=== PATIENT | female | born 1970 | race Caucasian/White ===

== ENCOUNTER 2016-10-14 14:37 | Inpatient (IN) | payer OTHER, MEDICARE, MEDICAID ==
[~2016-10-14] VITALS: Ht 170.2 cm; Wt 87.9 kg
[~2016-10-14 14:37] MED LIST: /DULO30CA; /DULO30CA OR; /ESOM40CA; /ESOM40CA OR; /ESOM40CA PO; /PROM25SU; ACET500C OR; AMBI10TA; AMBI10TA OR; AMOX500C OR; AMRIX; AMRIX PO; ARTHROTEC PO; ASCO25TA PO; ATEN25TA; ATEN25TA OR; BABY81CH; BLACK COHASH; CALC600T7 PO; CALCCHW12 OR; CYCL10TA PO; ESTR1TAB PO; ESTR625TA PO; EXCETAB OR; EXCETAB80 PO; FISHCAP5 PO; FLECTOR1.3; FLECTOR1.3 EXT; FLEXERIL; FLEXERIL OR; FLEXERIL PO; IBUP80TA PO; IMIT6INJ IJ; LIDO5DIS; LISI-542 PO; LOPERAMIDE PO; MELOPOW; MOBIC; MULTCAP PO; MULTIVIT; MULTIVIT OR; MVI PO; NEUR100C; NEUR100C PO; NEXI40CA PO; NORT25CA2 OR; OMEP20TA7 OR; PERC5TAB8; PERC5TAB8 OR; PREM0.45 PO; PROC25SU2 PO; PROP40TA OR; RIZA10TA4 PO; TIZA4TAB OR; TRAZADONE PO; TRIA37.5 PO; VOLT1GEL PO; ZANA4CAP OR; ZOFR8TAB PO; ZONI25CA2 PO; ZONI50CA3 PO; ZONISAMIDE PO; [UNRECOGNIZED DRUG - OTHER]; [UNRECOGNIZED DRUG - OTHER] PO; [UNRECOGNIZED DRUG - OTHER] PO; [UNRECOGNIZED DRUG - OTHER] PO
[2016-10-14] MEDS ORDERED: ACETAMINOPHEN 325 MG TAB As Ordered ONE (18:31)
[2016-10-14] MEDS ORDERED: CYCL5TA PO (20:34)
[2016-10-14] MEDS ORDERED: NARA2.5T PO (20:34)
[2016-10-14] MEDS ORDERED: ONDA4TAB6 PO (20:34)
[2016-10-14] MEDS ORDERED: ESTR25TA PO (20:34)
[2016-10-14] MEDS ORDERED: PROP120C PO (20:34)
[2016-10-14] MEDS ORDERED: ALBU17IN INH (20:34)
[2016-10-14] MEDS ORDERED: PRED5TA PO (20:34)
[2016-10-14] MEDS ORDERED: LISI10TA4 PO (20:34)
[2016-10-14] MEDS ORDERED: DICL75TA PO (20:34)
[2016-10-14] MEDS ORDERED: VALI5TAB PO (20:34)
[2016-10-14] MEDS ORDERED: DULO1CAP2 PO (20:34)
[2016-10-14] MEDS ORDERED: DULO1CAP3 PO (20:34)
[2016-10-14] MEDS ORDERED: OXYC1TAB23 PO (20:34)
[2016-10-14] MEDS ORDERED: CYCL10TA PO (20:35)
[2016-10-14] MEDS: OMEPRAZOLE 20 MG CAP PO SCH (21:00)
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
--- NOTE | 2016-10-14 22:46 | EDDOCDS ---
Physician Documentation [facility] Name: Norma Vera Age: 46 yrs Sex: Female : 1970 Arrival Date: 10/14/2016 Time: 14:[address] MD: Disposition: 10/14/16 19:54 Hospitalization ordered by Diana Cho for Inpatient Admission. Preliminary diagnosis is Adjustment disorder with depressed mood. - Bed requested for Admit. - Status is Inpatient Admission. rw1 - Condition is Stable. - Problem is new. - Symptoms are unchanged. Historical: - Allergies: BACLOFEN (Anaphylaxis); Morphine (SOB, nausea, rash); - Home Meds: 1. duloxetine 30 mg Oral cpDR 1 cap 2 times per day 2. esomeprazole magnesium 40 mg Oral cpDR 1 cap once daily 3. multivitamin Oral cap 1 tablet daily 4. omega-3 fatty acids 300 mg oral cap 1 cap daily 5. propranolol 120 mg Oral Cs24 1 cap once daily 6. Ambien 10 mg Oral tab 1 tab once daily 7. estradiol 0.5 mg Oral tab 1 tab once daily 8. ProAir HFA 90 mcg/actuation inhalation HFAA 1 puff as needed 9. triamterene-hydrochlorothiazid 37.5-25 mg Oral tab 1 tab once daily 10. Valium 5 mg Oral tab 1 tab daily - PMHx: Lupus; Fibromyalgia; Hypertension; Degenerative disc disease; GERD; Anxiety; Depression; insomnia; "weak bladder"; polymyalgia rheumatica; - PSHx: Cholecystectomy; Hysterectomy; - Social history: Smoking status: Patient uses tobacco products, light tobacco smoker. No barriers to communication noted, The patient speaks fluent Djiboutian, Speaks appropriately for age. - Family history: Not pertinent. - : The pt / caregiver states he / she is not on anticoagulants. Home medication list is obtained from [facility] paperwork. - Exposure Risk Screening:: None identified. PHILOSOPHY LECTURER: 10/14 15:01 LMP N/A - Hysterectomy ld5 Vital Signs: 15:01 BP 116 / 75; Pulse 110; Resp 16; Temp 98.3(O); Pulse Ox 96% on R/A; Weight 92.53 kg / ld5 203.99 lbs (R); Height 5 ft. 7 in. (170.18 cm) (R); Pain 0/10; 18:11 BP 124 / 81; Pulse 98; Resp 16; Pulse Ox 96% on R/A; dpm 22:30 BP 114 / 76; Pulse 84; Resp 18; Temp 96.9(O); Pulse Ox 96% on R/A; Pain 0/10; rw1 15:01 Body Mass Index 31.95 (92.53 kg, 170.18 cm) ld5 MDM: 15:23 Financial registration complete. mpb 15:46 [facility] Payment Agreement was scanned into [employer] and attached to record. mpb 16:08 REGULAR DIET PLASTIC HAYS+DIET ordered. EDMS 18:06 ECG WITH READING ER PHYS+CARDIAG ordered. EDMS 18:27 Acetaminophen Tablet 650 mg PO once ordered. le 19:38 BED REQUEST+ADM ordered. EDMS 19:49 Admit to [facility]: ordered. EDMS 19:59 [facility] Legal paperwork was scanned into [employer] and attached to record. jfb Administered Medications: 18:39 Drug: Acetaminophen 650 mg [acetaminophen 325 mg tablet (2 tabs)] Route: PO; ld5 21:45 Follow up: Response: No Adverse Reaction rw1 Signatures: Dispatcher [employer] EDMS Dheeraj Enriquez,MANAGER MARKETING COMMUNICATION MANAGER MARKETING COMMUNICATION rw1 Jacque Melgoza, PUFF IRONER PUFF IRONER Lucita Quiroz, PSA PSA jfb Angelina Hunter,RN RN ld5 Bebeto Miles, [place] Reg mpb The chart was reviewed and I authenticate all verbal orders and agree with the evaluation and treatment provided.Attachments: 15:46 [facility] Payment Agreement mpb MTDD
[2016-10-15] MEDS ORDERED: MAALOX 30 ML SUSP *UDC PO PRN (00:15)
[2016-10-15] MEDS ORDERED: MOM 30ML SUSPENSION UDC PO PRN (00:15)
[2016-10-15 02:36] VITALS: BP 118/81
[2016-10-15 06:34] VITALS: BP 136/90
[2016-10-15] MEDS: OMEGA-3 1050MG CAPSULE PO SCH (08:01)
[2016-10-15] MEDS: NICOTINE 7 MG/24 HR TRANSDERMAL TD SCH (08:01)
[2016-10-15] MEDS: DYAZIDE 37.5/25 CAP (TRIAM/HCTZ) PO SCH (08:04)
[2016-10-15] MEDS: ESTRADIOL 1 MG TAB PO SCH (08:05)
[2016-10-15] MEDS: PROPRANOLOL 60 MG LA CAP PO SCH (08:05)
[2016-10-15] MEDS: MULTIVITAMINS/MINERALS THERAP 1 TAB PO SCH (08:05)
[2016-10-15] MEDS: DIVALPROEX 250 MG TAB PO SCH ×2 (11:36→20:37)
[2016-10-15] MEDS: ACETAMINOPHEN TAB 650MG DOSE (2X325MG) PO PRN (14:23)
[2016-10-15 18:00] VITALS: BP 117/84
[2016-10-15] MEDS: OMEPRAZOLE 20 MG CAP PO SCH (20:37)
[2016-10-15] MEDS ORDERED: traZODone 50 MG TAB PO ONE (23:30)
[2016-10-16 06:00] VITALS: BP 117/84
--- NOTE | 2016-10-16 08:11 | ECGEPIP ---
Stationary ECG Study [facility] - ED Test Date: 2016-10-14 Pat Name: PADDY FARMER Department: Room: [place] [address] Gender: F Chucking And Sawing Machine Operator: MARIA L : 1970 Requested By: PADDY CERON Order Number: [id number] Reading MD: Tracy Perkins Measurements Intervals [place] Rate: 90 P: 44 IL: 131 QRS: 58 QRSD: 96 T: 49 QT: 365 QTc: 447 Interpretive Statements SINUS RHYTHM NO PRIOR FOR COMPARISON Electronically Signed On 10-16-2016 8:11:26 EST by Tracy Perkins
[2016-10-16] MEDS: MULTIVITAMINS/MINERALS THERAP 1 TAB PO SCH (08:29)
[2016-10-16] MEDS: OMEGA-3 1050MG CAPSULE PO SCH (08:29)
[2016-10-16] MEDS: NICOTINE 7 MG/24 HR TRANSDERMAL TD SCH (08:30)
[2016-10-16] MEDS: DIVALPROEX 250 MG TAB PO SCH ×2 (08:32→19:58)
[2016-10-16] MEDS: PROPRANOLOL 60 MG LA CAP PO SCH (08:33)
[2016-10-16] MEDS: ESTRADIOL 1 MG TAB PO SCH (08:34)
[2016-10-16] MEDS: ACETAMINOPHEN TAB 650MG DOSE (2X325MG) PO PRN (08:35)
[2016-10-16] MEDS: DYAZIDE 37.5/25 CAP (TRIAM/HCTZ) PO SCH (08:37)
[2016-10-16] MEDS: EXCEDRIN MIGRAINE TABLET PO PRN (14:29)
[2016-10-16 18:00] VITALS: BP 119/86
[2016-10-16] MEDS: zolPIDEM CR 6.25MG TABLET (AMBIEN CR) PO PRN (19:58)
[2016-10-16] MEDS: OMEPRAZOLE 20 MG CAP PO SCH (19:58)
[2016-10-16] MEDS: RIZATRIPTAN BENZOATE 10 MG TAB PO PRN (19:59)
--- NOTE | 2016-10-16 23:46 | EDDOCDS ---
Physician Documentation [facility] Name: Norma Vera Age: 46 yrs Sex: Female : 1970 Arrival Date: 10/14/2016 Time: 14:[address] MD: Disposition: 10/14/16 19:54 Hospitalization ordered by Diana Cho for Inpatient Admission. Preliminary diagnosis is Adjustment disorder with depressed mood. - Bed requested for Admit. - Status is Inpatient Admission. rw1 - Condition is Stable. - Problem is new. - Symptoms are unchanged. Historical: - Allergies: BACLOFEN (Anaphylaxis); Morphine (SOB, nausea, rash); - Home Meds: 1. duloxetine 30 mg Oral cpDR 1 cap 2 times per day 2. esomeprazole magnesium 40 mg Oral cpDR 1 cap once daily 3. multivitamin Oral cap 1 tablet daily 4. omega-3 fatty acids 300 mg oral cap 1 cap daily 5. propranolol 120 mg Oral Cs24 1 cap once daily 6. Ambien 10 mg Oral tab 1 tab once daily 7. estradiol 0.5 mg Oral tab 1 tab once daily 8. ProAir HFA 90 mcg/actuation inhalation HFAA 1 puff as needed 9. triamterene-hydrochlorothiazid 37.5-25 mg Oral tab 1 tab once daily 10. Valium 5 mg Oral tab 1 tab daily - PMHx: Lupus; Fibromyalgia; Hypertension; Degenerative disc disease; GERD; Anxiety; Depression; insomnia; "weak bladder"; polymyalgia rheumatica; - PSHx: Cholecystectomy; Hysterectomy; - Social history: Smoking status: Patient uses tobacco products, light tobacco smoker. No barriers to communication noted, The patient speaks fluent Cambodian, Speaks appropriately for age. - Family history: Not pertinent. - : The pt / caregiver states he / she is not on anticoagulants. Home medication list is obtained from [facility] paperwork. - Exposure Risk Screening:: None identified. DISPUTE RESOLUTION ANALYST: 10/14 15:01 LMP N/A - Hysterectomy ld5 Vital Signs: 15:01 BP 116 / 75; Pulse 110; Resp 16; Temp 98.3(O); Pulse Ox 96% on R/A; Weight 92.53 kg / ld5 203.99 lbs (R); Height 5 ft. 7 in. (170.18 cm) (R); Pain 0/10; 18:11 BP 124 / 81; Pulse 98; Resp 16; Pulse Ox 96% on R/A; dpm 22:30 BP 114 / 76; Pulse 84; Resp 18; Temp 96.9(O); Pulse Ox 96% on R/A; Pain 0/10; rw1 15:01 Body Mass Index 31.95 (92.53 kg, 170.18 cm) ld5 MDM: 15:23 Financial registration complete. [facility] 15:46 [facility] Payment Agreement was scanned into [employer] and attached to record. mpb 16:08 REGULAR DIET PLASTIC HAYS+DIET ordered. EDMS 18:06 ECG WITH READING ER PHYS+CARDIAG ordered. EDMS 18:27 Acetaminophen Tablet 650 mg PO once ordered. le 19:38 BED REQUEST+ADM ordered. EDMS 19:49 Admit to [facility]: ordered. EDMS 19:59 [facility] Legal paperwork was scanned into [employer] and attached to record. [facility] 22:54 T-Sheet-- Draft Copy was scanned into [employer] and attached to record. r 10/15 08:32 ECG/EKG was scanned into [employer] and attached to record. gb Administered Medications: 10/14 18:39 Drug: Acetaminophen 650 mg [acetaminophen 325 mg tablet (2 tabs)] Route: PO; ld5 21:45 Follow up: Response: No Adverse Reaction rw1 Signatures: Dispatcher [employer] EDMS Cyn Mcdonough, Reg Reg gb Dheeraj Enriquez,BUS AND TROLLEY INSPECTING DISPATCHER BUS AND [employer]OLLEY INSPECTING DISPATCHER rw1 Jacque Melgoza, SPORTS BOOK WRITER SPORTS BOOK WRITER Lucita Quiroz, PSA PSA jfb Angelina Hunter,KEV RN ld5 Bebeto Miles, Reg Reg mpb Cielo Dumont The chart was reviewed and I authenticate all verbal orders and agree with the evaluation and treatment provided.Attachments: 15:46 [facility] Payment Agreement [facility] 22:54 T-Sheet-- Draft Copy [facility] 10/15 08:32 ECG/EKG Chart Complete MTDD
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
--- NOTE | 2016-10-16 23:46 | EDDOCDS ---
Physician Documentation [facility] Name: Norma Vera Age: 46 yrs Sex: Female : 1970 Arrival Date: 10/14/2016 Time: 14:[address] MD: Disposition: 10/14/16 19:54 Hospitalization ordered by Diana Cho for Inpatient Admission. Preliminary diagnosis is Adjustment disorder with depressed mood. - Bed requested for Admit. - Status is Inpatient Admission. rw1 - Condition is Stable. - Problem is new. - Symptoms are unchanged. Historical: - Allergies: BACLOFEN (Anaphylaxis); Morphine (SOB, nausea, rash); - Home Meds: 1. duloxetine 30 mg Oral cpDR 1 cap 2 times per day 2. esomeprazole magnesium 40 mg Oral cpDR 1 cap once daily 3. multivitamin Oral cap 1 tablet daily 4. omega-3 fatty acids 300 mg oral cap 1 cap daily 5. propranolol 120 mg Oral Cs24 1 cap once daily 6. Ambien 10 mg Oral tab 1 tab once daily 7. estradiol 0.5 mg Oral tab 1 tab once daily 8. ProAir HFA 90 mcg/actuation inhalation HFAA 1 puff as needed 9. triamterene-hydrochlorothiazid 37.5-25 mg Oral tab 1 tab once daily 10. Valium 5 mg Oral tab 1 tab daily - PMHx: Lupus; Fibromyalgia; Hypertension; Degenerative disc disease; GERD; Anxiety; Depression; insomnia; "weak bladder"; polymyalgia rheumatica; - PSHx: Cholecystectomy; Hysterectomy; - Social history: Smoking status: Patient uses tobacco products, light tobacco smoker. No barriers to communication noted, The patient speaks fluent Zambian, Speaks appropriately for age. - Family history: Not pertinent. - : The pt / caregiver states he / she is not on anticoagulants. Home medication list is obtained from [facility] paperwork. - Exposure Risk Screening:: None identified. LEGAL DIRECTOR: 10/14 15:01 LMP N/A - Hysterectomy ld5 Vital Signs: 15:01 BP 116 / 75; Pulse 110; Resp 16; Temp 98.3(O); Pulse Ox 96% on R/A; Weight 92.53 kg / ld5 203.99 lbs (R); Height 5 ft. 7 in. (170.18 cm) (R); Pain 0/10; 18:11 BP 124 / 81; Pulse 98; Resp 16; Pulse Ox 96% on R/A; dpm 22:30 BP 114 / 76; Pulse 84; Resp 18; Temp 96.9(O); Pulse Ox 96% on R/A; Pain 0/10; rw1 15:01 Body Mass Index 31.95 (92.53 kg, 170.18 cm) ld5 MDM: 15:23 Financial registration complete. [facility] 15:46 [facility] Payment Agreement was scanned into [employer] and attached to record. mpb 16:08 REGULAR DIET PLASTIC HAYS+DIET ordered. EDMS 18:06 ECG WITH READING ER PHYS+CARDIAG ordered. EDMS 18:27 Acetaminophen Tablet 650 mg PO once ordered. le 19:38 BED REQUEST+ADM ordered. EDMS 19:49 Admit to [facility]: ordered. EDMS 19:59 [facility] Legal paperwork was scanned into [employer] and attached to record. [facility] 22:54 T-Sheet-- Draft Copy was scanned into [employer] and attached to record. r 10/15 08:32 ECG/EKG was scanned into [employer] and attached to record. gb Administered Medications: 10/14 18:39 Drug: Acetaminophen 650 mg [acetaminophen 325 mg tablet (2 tabs)] Route: PO; ld5 21:45 Follow up: Response: No Adverse Reaction rw1 Signatures: Dispatcher [employer] EDMS Cyn Mcdonough, Reg Reg gb Dheeraj Enriquez,WATER TAXI BOAT MATE WATER TAXI BOAT MATE rw1 Jacque Melgoza, TOMBSTONE POLISHER TOMBSTONE POLISHER Lucita Quiroz, PSA PSA jfb Angelina Hunter,KEV RN ld5 Bebeto Miles, Reg Reg mpb Cielo Dumont The chart was reviewed and I authenticate all verbal orders and agree with the evaluation and treatment provided.Attachments: 15:46 [facility] Payment Agreement [facility] 22:54 T-Sheet-- Draft Copy [facility] 10/15 08:32 ECG/EKG Chart Complete MTDD
[2016-10-17] MEDS: RIZATRIPTAN BENZOATE 10 MG TAB PO PRN (04:47)
[2016-10-17 07:09] VITALS: BP 145/90
[2016-10-17] MEDS: NICOTINE 7 MG/24 HR TRANSDERMAL TD SCH (08:34)
[2016-10-17] MEDS: MULTIVITAMINS/MINERALS THERAP 1 TAB PO SCH (08:34)
[2016-10-17] MEDS: OMEGA-3 1050MG CAPSULE PO SCH (08:34)
[2016-10-17] MEDS: DIVALPROEX 250 MG TAB PO SCH ×2 (08:37→21:00)
[2016-10-17] MEDS: PROPRANOLOL 60 MG LA CAP PO SCH (08:37)
[2016-10-17] MEDS: ESTRADIOL 1 MG TAB PO SCH (08:38)
[2016-10-17] MEDS: DYAZIDE 37.5/25 CAP (TRIAM/HCTZ) PO SCH (08:38)
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
--- NOTE | 2016-10-17 12:15 | EDDOCDS ---
Physician Documentation [facility] Name: Norma Vera Age: 46 yrs Sex: Female : 1970 Arrival Date: 10/14/2016 Time: 14:[address] MD: Disposition: 10/14/16 19:54 Hospitalization ordered by Diana Cho for Inpatient Admission. Preliminary diagnosis is Adjustment disorder with depressed mood. - Bed requested for Admit. - Status is Inpatient Admission. rw1 - Condition is Stable. - Problem is new. - Symptoms are unchanged. Historical: - Allergies: BACLOFEN (Anaphylaxis); Morphine (SOB, nausea, rash); - Home Meds: 1. duloxetine 30 mg Oral cpDR 1 cap 2 times per day 2. esomeprazole magnesium 40 mg Oral cpDR 1 cap once daily 3. multivitamin Oral cap 1 tablet daily 4. omega-3 fatty acids 300 mg oral cap 1 cap daily 5. propranolol 120 mg Oral Cs24 1 cap once daily 6. Ambien 10 mg Oral tab 1 tab once daily 7. estradiol 0.5 mg Oral tab 1 tab once daily 8. ProAir HFA 90 mcg/actuation inhalation HFAA 1 puff as needed 9. triamterene-hydrochlorothiazid 37.5-25 mg Oral tab 1 tab once daily 10. Valium 5 mg Oral tab 1 tab daily - PMHx: Lupus; Fibromyalgia; Hypertension; Degenerative disc disease; GERD; Anxiety; Depression; insomnia; "weak bladder"; polymyalgia rheumatica; - PSHx: Cholecystectomy; Hysterectomy; - Social history: Smoking status: Patient uses tobacco products, light tobacco smoker. No barriers to communication noted, The patient speaks fluent Belarusian, Speaks appropriately for age. - Family history: Not pertinent. - : The pt / caregiver states he / she is not on anticoagulants. Home medication list is obtained from [facility] paperwork. - Exposure Risk Screening:: None identified. 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 7 in. (170.18 cm) (R); Pain 0/10; 18:11 BP 124 / 81; Pulse 98; Resp 16; Pulse Ox 96% on R/A; dpm 22:30 BP 114 / 76; Pulse 84; Resp 18; Temp 96.9(O); Pulse Ox 96% on R/A; Pain 0/10; rw1 15:01 Body Mass Index 31.95 (92.53 kg, 170.18 cm) ld5 MDM: 15:23 Financial registration complete. [facility] 15:46 [facility] Payment Agreement was scanned into [employer] and attached to record. mpb 16:08 REGULAR DIET PLASTIC HAYS+DIET ordered. EDMS 18:06 ECG WITH READING ER PHYS+CARDIAG ordered. EDMS 18:27 Acetaminophen Tablet 650 mg PO once ordered. le 19:38 BED REQUEST+ADM ordered. EDMS 19:49 Admit to [facility]: ordered. EDMS 19:59 [facility] Legal paperwork was scanned into [employer] and attached to record. [facility] 22:54 T-Sheet-- Draft Copy was scanned into [employer] and attached to record. r 10/15 08:32 ECG/EKG was scanned into [employer] and attached to record. gb Administered Medications: 10/14 18:39 Drug: Acetaminophen 650 mg [acetaminophen 325 mg tablet (2 tabs)] Route: PO; ld5 21:45 Follow up: Response: No Adverse Reaction rw1 Signatures: Dispatcher [employer] EDMS Cyn Mcdonough, Reg Reg gb Dheeraj Enriquez,REMOTE SENSING SURVEYOR REMOTE SENSING SURVEYOR rw1 Jacque Melgoza, QUOTATION CHECKER QUOTATION CHECKER Lucita Quiroz, PSA PSA jfb Angelina Hunter,KEV RN ld5 Bebeto Miles, Reg Reg mpb Cielo Dumont The chart was reviewed and I authenticate all verbal orders and agree with the evaluation and treatment provided.Attachments: 15:46 [facility] Payment Agreement [facility] 22:54 T-Sheet-- Draft Copy [facility] 10/15 08:32 ECG/EKG Chart Complete MTDD
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
--- NOTE | 2016-10-17 12:15 | EDDOCDS ---
Physician Documentation [facility] Name: Norma Vera Age: 46 yrs Sex: Female : 1970 Arrival Date: 10/14/2016 Time: 14:[address] MD: Disposition: 10/14/16 19:54 Hospitalization ordered by Diana Cho for Inpatient Admission. Preliminary diagnosis is Adjustment disorder with depressed mood. - Bed requested for Admit. - Status is Inpatient Admission. rw1 - Condition is Stable. - Problem is new. - Symptoms are unchanged. Historical: - Allergies: BACLOFEN (Anaphylaxis); Morphine (SOB, nausea, rash); - Home Meds: 1. duloxetine 30 mg Oral cpDR 1 cap 2 times per day 2. esomeprazole magnesium 40 mg Oral cpDR 1 cap once daily 3. multivitamin Oral cap 1 tablet daily 4. omega-3 fatty acids 300 mg oral cap 1 cap daily 5. propranolol 120 mg Oral Cs24 1 cap once daily 6. Ambien 10 mg Oral tab 1 tab once daily 7. estradiol 0.5 mg Oral tab 1 tab once daily 8. ProAir HFA 90 mcg/actuation inhalation HFAA 1 puff as needed 9. triamterene-hydrochlorothiazid 37.5-25 mg Oral tab 1 tab once daily 10. Valium 5 mg Oral tab 1 tab daily - PMHx: Lupus; Fibromyalgia; Hypertension; Degenerative disc disease; GERD; Anxiety; Depression; insomnia; "weak bladder"; polymyalgia rheumatica; - PSHx: Cholecystectomy; Hysterectomy; - Social history: Smoking status: Patient uses tobacco products, light tobacco smoker. No barriers to communication noted, The patient speaks fluent Senegalese, Speaks appropriately for age. - Family history: Not pertinent. - : The pt / caregiver states he / she is not on anticoagulants. Home medication list is obtained from [facility] paperwork. - Exposure Risk Screening:: None identified. SADDLE MECHANIC: 10/14 15:01 LMP N/A - Hysterectomy ld5 Vital Signs: 15:01 BP 116 / 75; Pulse 110; Resp 16; Temp 98.3(O); Pulse Ox 96% on R/A; Weight 92.53 kg / ld5 203.99 lbs (R); Height 5 ft. 7 in. (170.18 cm) (R); Pain 0/10; 18:11 BP 124 / 81; Pulse 98; Resp 16; Pulse Ox 96% on R/A; dpm 22:30 BP 114 / 76; Pulse 84; Resp 18; Temp 96.9(O); Pulse Ox 96% on R/A; Pain 0/10; rw1 15:01 Body Mass Index 31.95 (92.53 kg, 170.18 cm) ld5 MDM: 15:23 Financial registration complete. [facility] 15:46 [facility] Payment Agreement was scanned into [employer] and attached to record. mpb 16:08 REGULAR DIET PLASTIC HAYS+DIET ordered. EDMS 18:06 ECG WITH READING ER PHYS+CARDIAG ordered. EDMS 18:27 Acetaminophen Tablet 650 mg PO once ordered. le 19:38 BED REQUEST+ADM ordered. EDMS 19:49 Admit to [facility]: ordered. EDMS 19:59 [facility] Legal paperwork was scanned into [employer] and attached to record. [facility] 22:54 T-Sheet-- Draft Copy was scanned into [employer] and attached to record. r 10/15 08:32 ECG/EKG was scanned into [employer] and attached to record. gb Administered Medications: 10/14 18:39 Drug: Acetaminophen 650 mg [acetaminophen 325 mg tablet (2 tabs)] Route: PO; ld5 21:45 Follow up: Response: No Adverse Reaction rw1 Signatures: Dispatcher [employer] EDMS Cyn Mcdonough, Reg Reg gb Dheeraj Enriquez,DOOR CLAMPER DOOR CLAMPER rw1 Jacque Melgoza, SOLE PAINTER SOLE PAINTER Lucita Quiroz, PSA PSA jfb Angelina Hunter,KEV RN ld5 Bebeto Miles, Reg Reg mpb Cielo Dumont The chart was reviewed and I authenticate all verbal orders and agree with the evaluation and treatment provided.Attachments: 15:46 [facility] Payment Agreement [facility] 22:54 T-Sheet-- Draft Copy [facility] 10/15 08:32 ECG/EKG MTDD
--- NOTE | 2016-10-17 12:15 | EDDOCDS ---
Physician Documentation [facility] Name: Norma Vera Age: 46 yrs Sex: Female : 1970 Arrival Date: 10/14/2016 Time: 14:[address] MD: Disposition: 10/14/16 19:54 Hospitalization ordered by Diana Cho for Inpatient Admission. Preliminary diagnosis is Adjustment disorder with depressed mood. - Bed requested for Admit. - Status is Inpatient Admission. rw1 - Condition is Stable. - Problem is new. - Symptoms are unchanged. Historical: - Allergies: BACLOFEN (Anaphylaxis); Morphine (SOB, nausea, rash); - Home Meds: 1. duloxetine 30 mg Oral cpDR 1 cap 2 times per day 2. esomeprazole magnesium 40 mg Oral cpDR 1 cap once daily 3. multivitamin Oral cap 1 tablet daily 4. omega-3 fatty acids 300 mg oral cap 1 cap daily 5. propranolol 120 mg Oral Cs24 1 cap once daily 6. Ambien 10 mg Oral tab 1 tab once daily 7. estradiol 0.5 mg Oral tab 1 tab once daily 8. ProAir HFA 90 mcg/actuation inhalation HFAA 1 puff as needed 9. triamterene-hydrochlorothiazid 37.5-25 mg Oral tab 1 tab once daily 10. Valium 5 mg Oral tab 1 tab daily - PMHx: Lupus; Fibromyalgia; Hypertension; Degenerative disc disease; GERD; Anxiety; Depression; insomnia; "weak bladder"; polymyalgia rheumatica; - PSHx: Cholecystectomy; Hysterectomy; - Social history: Smoking status: Patient uses tobacco products, light tobacco smoker. No barriers to communication noted, The patient speaks fluent Burundian, Speaks appropriately for age. - Family history: Not pertinent. - : The pt / caregiver states he / she is not on anticoagulants. Home medication list is obtained from [facility] paperwork. - Exposure Risk Screening:: None identified. KNOCKOUT MAN: 10/14 15:01 LMP N/A - Hysterectomy ld5 Vital Signs: 15:01 BP 116 / 75; Pulse 110; Resp 16; Temp 98.3(O); Pulse Ox 96% on R/A; Weight 92.53 kg / ld5 203.99 lbs (R); Height 5 ft. 7 in. (170.18 cm) (R); Pain 0/10; 18:11 BP 124 / 81; Pulse 98; Resp 16; Pulse Ox 96% on R/A; dpm 22:30 BP 114 / 76; Pulse 84; Resp 18; Temp 96.9(O); Pulse Ox 96% on R/A; Pain 0/10; rw1 15:01 Body Mass Index 31.95 (92.53 kg, 170.18 cm) ld5 MDM: 15:23 Financial registration complete. [facility] 15:46 [facility] Payment Agreement was scanned into [employer] and attached to record. mpb 16:08 REGULAR DIET PLASTIC HAYS+DIET ordered. EDMS 18:06 ECG WITH READING ER PHYS+CARDIAG ordered. EDMS 18:27 Acetaminophen Tablet 650 mg PO once ordered. le 19:38 BED REQUEST+ADM ordered. EDMS 19:49 Admit to [facility]: ordered. EDMS 19:59 [facility] Legal paperwork was scanned into [employer] and attached to record. [facility] 22:54 T-Sheet-- Draft Copy was scanned into [employer] and attached to record. r 10/15 08:32 ECG/EKG was scanned into [employer] and attached to record. gb Administered Medications: 10/14 18:39 Drug: Acetaminophen 650 mg [acetaminophen 325 mg tablet (2 tabs)] Route: PO; ld5 21:45 Follow up: Response: No Adverse Reaction rw1 Signatures: Dispatcher [employer] EDMS Cyn Mcdonough, Reg Reg gb Dheeraj Enriquez,ROUTE INSPECTOR ROUTE INSPECTOR rw1 Jacque Melgoza, TEXTILE EXAMINER TEXTILE EXAMINER Lucita Quiroz, PSA PSA jfb Angelina Hunter,KEV RN ld5 Bebeto Miles, Reg Reg mpb Cielo Dumont The chart was reviewed and I authenticate all verbal orders and agree with the evaluation and treatment provided.Attachments: 15:46 [facility] Payment Agreement [facility] 22:54 T-Sheet-- Draft Copy [facility] 10/15 08:32 ECG/EKG Chart Complete MTDD
--- NOTE | 2016-10-17 12:15 | EDDOCDS ---
Physician Documentation [facility] Name: Norma Vera Age: 46 yrs Sex: Female : 1970 Arrival Date: 10/14/2016 Time: 14:[address] MD: Disposition: 10/14/16 19:54 Hospitalization ordered by Diana Cho for Inpatient Admission. Preliminary diagnosis is Adjustment disorder with depressed mood. - Bed requested for Admit. - Status is Inpatient Admission. rw1 - Condition is Stable. - Problem is new. - Symptoms are unchanged. Historical: - Allergies: BACLOFEN (Anaphylaxis); Morphine (SOB, nausea, rash); - Home Meds: 1. duloxetine 30 mg Oral cpDR 1 cap 2 times per day 2. esomeprazole magnesium 40 mg Oral cpDR 1 cap once daily 3. multivitamin Oral cap 1 tablet daily 4. omega-3 fatty acids 300 mg oral cap 1 cap daily 5. propranolol 120 mg Oral Cs24 1 cap once daily 6. Ambien 10 mg Oral tab 1 tab once daily 7. estradiol 0.5 mg Oral tab 1 tab once daily 8. ProAir HFA 90 mcg/actuation inhalation HFAA 1 puff as needed 9. triamterene-hydrochlorothiazid 37.5-25 mg Oral tab 1 tab once daily 10. Valium 5 mg Oral tab 1 tab daily - PMHx: Lupus; Fibromyalgia; Hypertension; Degenerative disc disease; GERD; Anxiety; Depression; insomnia; "weak bladder"; polymyalgia rheumatica; - PSHx: Cholecystectomy; Hysterectomy; - Social history: Smoking status: Patient uses tobacco products, light tobacco smoker. No barriers to communication noted, The patient speaks fluent Argentine, Speaks appropriately for age. - Family history: Not pertinent. - : The pt / caregiver states he / she is not on anticoagulants. Home medication list is obtained from [facility] paperwork. - Exposure Risk Screening:: None identified. 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 7 in. (170.18 cm) (R); Pain 0/10; 18:11 BP 124 / 81; Pulse 98; Resp 16; Pulse Ox 96% on R/A; dpm 22:30 BP 114 / 76; Pulse 84; Resp 18; Temp 96.9(O); Pulse Ox 96% on R/A; Pain 0/10; rw1 15:01 Body Mass Index 31.95 (92.53 kg, 170.18 cm) ld5 MDM: 15:23 Financial registration complete. [facility] 15:46 [facility] Payment Agreement was scanned into [employer] and attached to record. mpb 16:08 REGULAR DIET PLASTIC HAYS+DIET ordered. EDMS 18:06 ECG WITH READING ER PHYS+CARDIAG ordered. EDMS 18:27 Acetaminophen Tablet 650 mg PO once ordered. le 19:38 BED REQUEST+ADM ordered. EDMS 19:49 Admit to [facility]: ordered. EDMS 19:59 [facility] Legal paperwork was scanned into [employer] and attached to record. [facility] 22:54 T-Sheet-- Draft Copy was scanned into [employer] and attached to record. r 10/15 08:32 ECG/EKG was scanned into [employer] and attached to record. gb Administered Medications: 10/14 18:39 Drug: Acetaminophen 650 mg [acetaminophen 325 mg tablet (2 tabs)] Route: PO; ld5 21:45 Follow up: Response: No Adverse Reaction rw1 Signatures: Dispatcher [employer] EDMS Cyn Mcdonough, Reg Reg gb Dheeraj Enriquez,AUTOMOBILE DAMAGE FIELD APPRAISER AUTOMOBILE DAMAGE FIELD APPRAISER rw1 Jacque Melgoza, LABORATORY MONITOR LABORATORY MONITOR Lucita Quiroz, PSA PSA jfb Angelina Hunter,KEV RN ld5 Bebeto Miles, Reg Reg mpb Cielo Dumont The chart was reviewed and I authenticate all verbal orders and agree with the evaluation and treatment provided.Attachments: 15:46 [facility] Payment Agreement [facility] 22:54 T-Sheet-- Draft Copy [facility] 10/15 08:32 ECG/EKG MTDD
[2016-10-17] MEDS: ACETAMINOPHEN TAB 650MG DOSE (2X325MG) PO PRN (17:31)
[2016-10-17 18:00] VITALS: BP 123/79
[2016-10-17] MEDS: zolPIDEM CR 6.25MG TABLET (AMBIEN CR) PO PRN (20:59)
[2016-10-17] MEDS: OMEPRAZOLE 20 MG CAP PO SCH (20:59)
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
[2016-10-18 06:31] VITALS: BP 123/72
[2016-10-18] MEDS: OMEGA-3 1050MG CAPSULE PO SCH (08:09)
[2016-10-18] MEDS: NICOTINE 7 MG/24 HR TRANSDERMAL TD SCH (08:09)
[2016-10-18] MEDS: MULTIVITAMINS/MINERALS THERAP 1 TAB PO SCH (08:09)
[2016-10-18] MEDS: DIVALPROEX 250 MG TAB PO SCH ×2 (08:13→20:37)
[2016-10-18] MEDS: ESTRADIOL 1 MG TAB PO SCH (08:13)
[2016-10-18] MEDS: PROPRANOLOL 60 MG LA CAP PO SCH (08:13)
[2016-10-18] MEDS: DYAZIDE 37.5/25 CAP (TRIAM/HCTZ) PO SCH (08:14)
--- NOTE | 2016-10-18 10:01 | IPN ---
DATE: 10/16/2016 VITAL SIGNS: Temperature 96.9, pulse 86, respiratory rate 16, blood pressure 117/84. CURRENT MEDICATION: - propranolol - Depakote 250 mg by mouth twice a day HISTORY OF PRESENTING ILLNESS: I saw patient and also present was Anahy Godinez, nurse on the unit. Patient states she is still having a migraine headache and it has been bothering her. She states she usually gets 2-3 times a week and she takes nortriptyline, and we have not been able to verify that medicine. I looked up a recent note from the pain clinic and did not show that she is on nortriptyline. The note did indicate that she is on Maxalt. Patient also said Excedrin helps. Patient states that trazodone does not help. She states only Ambien helps. Hence, I will put her back on Ambien. Patient states she is doing well since the overdose. She states she is back to her normal self in terms of cognition, alertness. She states her adult health clinical nurse specialist from [facility] is coming tonight and is going to talk to her about where she can go instead of going back to boyfriend. She states she does not want to go back to the boyfriend. MENTAL STATUS EXAMINATION: 46-year-old [place] female, average height, obese build, walking with a cane, pleasant, calm, cooperative, depressed , anxious. Affect restricted. Mood congruent. Thought form logical, coherent and goal directed, organized. Thought content: Denies suicidal ideation (SI), homicidal ideation (HI). Endorses delusions. Perception: Denies auditory or visual hallucinations. Insight and judgment fair. Impulse control fair. ASSESSMENT: 46-year-old [place] female hospitalized following intentional overdose of valium. PLAN: Add Maxalt as needed. Add Excedrin as needed . Change trazodone to Ambien. MTDD
[2016-10-18] MEDS: DULoxetine 30 MG CAP (CYMBALTA) PO SCH (11:47)
[2016-10-18 18:00] VITALS: BP 120/84
[2016-10-18] MEDS: OMEPRAZOLE 20 MG CAP PO SCH (20:37)
[2016-10-18] MEDS: traZODone 50 MG TAB PO SCH (20:37)
[2016-10-18] MEDS: RIZATRIPTAN BENZOATE 10 MG TAB PO PRN (20:38)
--- NOTE | 2016-10-18 21:01 | HPE ---
DATE OF ADMISSION: 10/16/2016 HISTORY OF PRESENT ILLNESS: Please refer to psychiatric history and evaluation for further details on this admission. This examination and history on 10/16/2016, is intended for medical issues, which may need treatment, followup, or consult on this 46-year-old female. PRIMARY CARE PROVIDER: Dr. Magallon ALLERGIES: BACLOFEN, MORPHINE. SOCIAL HISTORY: She lives with her significant other. She was transferred from [facility] after being treated and stabilized from a valium overdose. Ethyl alcohol (EtOH): She has a glass of wine two times a month. Smokes one pack of cigarettes over every two weeks. Recreational drug use: None. PAST MEDICAL HISTORY: 1. Hypertension. 2. Lupus. 3. Polymyalgia rheumatica. 4. Gastroesophageal reflux disease (GERD). 5. Degenerative disc disease. 6. Anxiety. 7. Insomnia. 8. Weak bladder. She has a Otero; follows with neurology in [place]. PAST SURGICAL HISTORY: 1. Cholecystectomy. 2. Hysterectomy. CURRENT MEDICATIONS: - propranolol 120 mg by mouth daily - prednisone 5 mg by mouth daily - oxycodone one by mouth every 6 hours as needed for pain - Zofran 4 mg by mouth three times a day as needed for nausea - rizatriptan 2.5 mg by mouth at start of migraines - lisinopril 10 mg by mouth nightly - hydrochlorothiazide one by mouth daily - Estradiol 0.25 mg by mouth daily - Nexium 40 mg by mouth daily - paroxetine 60 mg by mouth daily, 30 mg by mouth nightly - diclofenac 75 mg by mouth twice a day - valium 5 mg by mouth twice a day as needed for anxiety - cyclobenzaprine 10 mg by mouth nightly, 5 mg by mouth daily - Ventolin 2 puffs by mouth every 4 hours as needed for shortness of breath and wheeze FAMILY HISTORY: Noncontributory. REVIEW OF SYSTEMS: History of migraines, none currently. History of gastroesophageal reflux disease (GERD). Sight nausea. No vomiting or diarrhea. Weak bladder, for which she has an indwelling Otero. Otherwise, she had no complaints. PHYSICAL EXAMINATION: Polite 46-year-old cooperative female in no acute distress. Height 67 inches, weight 92.5 kg, body mass index (BMI) 31.9 kg, blood pressure 118/81, pulse 86, respirations 16, oxygen saturation 97.1%. Patient is alert and oriented times three. Pupils equal, and react to light. Extraocular muscles intact. Sclerae clear. Conjunctivae was normal. No facial asymmetry. Pharynx, tongue and gums pink and moist. Tongue is midline. Neck is supple, without lymphadenopathy. No thyromegaly. No goiter. Chest clear to auscultation without wheeze or retraction. Heart is regular. Abdomen is benign. Bowel sounds positive. Genitourinary and rectal not done. Extremities show equal strength, full range of motion. No cyanosis, clubbing or edema. Peripheral pulses equal and palpable bilaterally. Skin is warm and dry. IMPRESSION AND PLAN: 1. Psychiatric plan per psychiatry. 2. History of hypertension. Continue lisinopril. 4. Lupus. 5. Polymyalgia rheumatica. Continue prednisone. 6. Gastroesophageal reflux disease (GERD). Continue Nexium. 7. Degenerative disc disease. Continue diclofenac and cyclobenzaprine as needed. 8. Weak bladder. Has a Otero in. She will follow up with [facility]. 9. Continue to follow up with her primary care provider for her numerous chronic medical issues, which are all currently stable.
[2016-10-19 06:19] VITALS: BP 124/80
[2016-10-19] MEDS: DYAZIDE 37.5/25 CAP (TRIAM/HCTZ) PO SCH (08:26)
[2016-10-19] MEDS: DULoxetine 30 MG CAP (CYMBALTA) PO SCH (08:26)
[2016-10-19] MEDS: ESTRADIOL 1 MG TAB PO SCH (08:26)
[2016-10-19] MEDS: OMEGA-3 1050MG CAPSULE PO SCH (08:29)
[2016-10-19] MEDS: MULTIVITAMINS/MINERALS THERAP 1 TAB PO SCH (08:29)
[2016-10-19] MEDS: NICOTINE 7 MG/24 HR TRANSDERMAL TD SCH (08:29)
[2016-10-19] MEDS: PROPRANOLOL 60 MG LA CAP PO SCH (08:29)
[2016-10-19] MEDS: DIVALPROEX 250 MG TAB PO SCH ×2 (08:29→20:59)
[2016-10-19] MEDS: predniSONE 5 MG TAB PO SCH ×2 (13:36→17:54)
[2016-10-19] MEDS: EXCEDRIN MIGRAINE TABLET PO PRN ×2 (14:52→21:22)
[2016-10-19 18:00] VITALS: BP 114/78
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
[2016-10-19] MEDS: OMEPRAZOLE 20 MG CAP PO SCH (20:58)
[2016-10-19] MEDS: traZODone 50 MG TAB PO SCH (20:58)
[2016-10-20 06:00] VITALS: BP 137/93
[2016-10-20] MEDS: DULoxetine 30 MG CAP (CYMBALTA) PO SCH (08:04)
[2016-10-20] MEDS: RIZATRIPTAN BENZOATE 10 MG TAB PO PRN ×2 (08:04→13:25)
[2016-10-20] MEDS: EXCEDRIN MIGRAINE TABLET PO PRN ×2 (08:04→15:34)
[2016-10-20] MEDS: predniSONE 5 MG TAB PO SCH ×3 (08:05→17:43)
[2016-10-20] MEDS: DYAZIDE 37.5/25 CAP (TRIAM/HCTZ) PO SCH (08:05)
[2016-10-20] MEDS: DIVALPROEX 250 MG TAB PO SCH (08:05)
[2016-10-20] MEDS: PROPRANOLOL 60 MG LA CAP PO SCH (08:05)
[2016-10-20] MEDS: ESTRADIOL 1 MG TAB PO SCH (08:05)
[2016-10-20] MEDS: NICOTINE 7 MG/24 HR TRANSDERMAL TD SCH (08:06)
[2016-10-20] MEDS: MULTIVITAMINS/MINERALS THERAP 1 TAB PO SCH (08:06)
[2016-10-20] MEDS: OMEGA-3 1050MG CAPSULE PO SCH (08:06)
[2016-10-20 08:15] VITALS: BP 118/78
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
[2016-10-20 18:00] VITALS: BP 124/84
[2016-10-20] MEDS: traZODone 50 MG TAB PO SCH (20:42)
[2016-10-20] MEDS: OMEPRAZOLE 20 MG CAP PO SCH (20:42)
[2016-10-21] MEDS: ACETAMINOPHEN TAB 650MG DOSE (2X325MG) PO PRN (00:32)
[2016-10-21 06:35] VITALS: BP 136/75
[2016-10-21] MEDS: PROPRANOLOL 60 MG LA CAP PO SCH (08:16)
[2016-10-21] MEDS: predniSONE 5 MG TAB PO SCH ×3 (08:16→17:01)
[2016-10-21] MEDS: ESTRADIOL 1 MG TAB PO SCH (08:16)
[2016-10-21] MEDS: DULoxetine 30 MG CAP (CYMBALTA) PO SCH (08:16)
[2016-10-21] MEDS: NICOTINE 7 MG/24 HR TRANSDERMAL TD SCH (08:17)
[2016-10-21] MEDS: DYAZIDE 37.5/25 CAP (TRIAM/HCTZ) PO SCH (08:17)
[2016-10-21] MEDS: MULTIVITAMINS/MINERALS THERAP 1 TAB PO SCH (08:17)
[2016-10-21] MEDS: OMEGA-3 1050MG CAPSULE PO SCH (08:17)
[2016-10-21] MEDS: BACTRIM 160MG/800MG DS TAB PO SCH ×2 (13:29→20:32)
[2016-10-21] MEDS: EXCEDRIN MIGRAINE TABLET PO PRN (13:30)
[2016-10-21] MEDS: PHENAZOPYRIDINE 100 MG TAB PO PRN ×2 (14:34→20:41)
[2016-10-21 18:00] VITALS: BP 135/88
[2016-10-21] MEDS: OMEPRAZOLE 20 MG CAP PO SCH (20:32)
[2016-10-21] MEDS: traZODone 50 MG TAB PO SCH (20:32)
[2016-10-22] MEDS: EXCEDRIN MIGRAINE TABLET PO PRN (00:06)
[2016-10-22 06:18] VITALS: BP 125/73
[2016-10-22] MEDS: MULTIVITAMINS/MINERALS THERAP 1 TAB PO SCH (08:12)
[2016-10-22] MEDS: NICOTINE 7 MG/24 HR TRANSDERMAL TD SCH (08:12)
[2016-10-22] MEDS: OMEGA-3 1050MG CAPSULE PO SCH (08:12)
[2016-10-22] MEDS: ESTRADIOL 1 MG TAB PO SCH (08:16)
[2016-10-22] MEDS: BACTRIM 160MG/800MG DS TAB PO SCH ×2 (08:16→20:21)
[2016-10-22] MEDS: DYAZIDE 37.5/25 CAP (TRIAM/HCTZ) PO SCH (08:16)
[2016-10-22] MEDS: PROPRANOLOL 60 MG LA CAP PO SCH (08:16)
[2016-10-22] MEDS: predniSONE 5 MG TAB PO SCH ×3 (08:16→17:13)
[2016-10-22] MEDS: DULoxetine 30 MG CAP (CYMBALTA) PO SCH (08:16)
[2016-10-22] MEDS: PHENAZOPYRIDINE 100 MG TAB PO PRN ×2 (08:34→19:41)
[2016-10-22] MEDS: ACETAMINOPHEN TAB 650MG DOSE (2X325MG) PO PRN ×2 (09:43→17:13)
--- NOTE | 2016-10-22 09:44 | IPN ---
DATE: 10/20/2016 VITAL SIGNS: Temperature 97.2, pulse 100, respirations 18, blood pressure 137/93. CURRENT MEDICATIONS: - Cymbalta 60 mg every morning - Depakote 250 mg twice a day - trazodone 50 mg nightly PSYCHIATRIC HISTORY: The patient complains of multiple somatic issues. She has a migraine headache. Her fibromyalgia is worse. She still feels somewhat depressed but overall her mood is improving. She likes the Cymbalta. Anxiety is minimal. She feels optimistic about the future. She has possible housing in a trailer, but she will have to give up her little dog. The patient does have good community supports. MENTAL STATUS EXAMINATION: The patient is alert, oriented and cooperative. Speech is still pressured. Mood is improved. She is less depressed. Affect is improved. Speech is still pressured. No overt paranoia. No overt delusional beliefs. The patient denies hearing voices. Insight and judgment appear fair. IMPRESSION: Unspecified depressive disorder. PLAN: Discontinue Depakote. Continue Cymbalta, trazodone combination. Start to work on discharge planning.
[2016-10-22 18:00] VITALS: BP 129/79
[2016-10-22] MEDS: traZODone 50 MG TAB PO SCH (20:21)
[2016-10-22] MEDS: OMEPRAZOLE 20 MG CAP PO SCH (20:21)
[2016-10-23] MEDS: PHENAZOPYRIDINE 100 MG TAB PO PRN ×3 (02:49→20:30)
[2016-10-23 06:00] VITALS: BP 123/95
[2016-10-23] MEDS: DULoxetine 30 MG CAP (CYMBALTA) PO SCH (08:30)
[2016-10-23] MEDS: BACTRIM 160MG/800MG DS TAB PO SCH ×2 (08:30→20:28)
[2016-10-23] MEDS: PROPRANOLOL 60 MG LA CAP PO SCH (08:30)
[2016-10-23] MEDS: predniSONE 5 MG TAB PO SCH ×3 (08:31→17:33)
[2016-10-23] MEDS: ESTRADIOL 1 MG TAB PO SCH (08:31)
[2016-10-23] MEDS: DYAZIDE 37.5/25 CAP (TRIAM/HCTZ) PO SCH (08:31)
[2016-10-23] MEDS: OMEGA-3 1050MG CAPSULE PO SCH (08:36)
[2016-10-23] MEDS: MULTIVITAMINS/MINERALS THERAP 1 TAB PO SCH (08:36)
[2016-10-23] MEDS: NICOTINE 7 MG/24 HR TRANSDERMAL TD SCH (08:37)
[2016-10-23] MEDS: ALBUTEROL 90 MCG/ACT 8GM HFA INHALER INH PRN (09:32)
[2016-10-23 18:00] VITALS: BP 118/70
[2016-10-23] MEDS: OMEPRAZOLE 20 MG CAP PO SCH (20:28)
[2016-10-23] MEDS: traZODone 50 MG TAB PO SCH (20:28)
[2016-10-24] MEDS: ACETAMINOPHEN TAB 650MG DOSE (2X325MG) PO PRN ×2 (01:14→10:54)
[2016-10-24 06:09] VITALS: BP 135/84
[2016-10-24] MEDS: PHENAZOPYRIDINE 100 MG TAB PO PRN ×2 (06:59→12:50)
[2016-10-24 08:29] VITALS: BP 135/84
[2016-10-24] MEDS: DULoxetine 30 MG CAP (CYMBALTA) PO SCH (08:29)
[2016-10-24] MEDS: BACTRIM 160MG/800MG DS TAB PO SCH (08:29)
[2016-10-24] MEDS: predniSONE 5 MG TAB PO SCH ×3 (08:29→16:34)
[2016-10-24] MEDS: PROPRANOLOL 60 MG LA CAP PO SCH (08:29)
[2016-10-24] MEDS: DYAZIDE 37.5/25 CAP (TRIAM/HCTZ) PO SCH (08:30)
[2016-10-24] MEDS: ESTRADIOL 1 MG TAB PO SCH (08:30)
[2016-10-24] MEDS: ALBUTEROL 90 MCG/ACT 8GM HFA INHALER INH PRN (08:32)
[2016-10-24] MEDS: NICOTINE 7 MG/24 HR TRANSDERMAL TD SCH (08:32)
[2016-10-24] MEDS: OMEGA-3 1050MG CAPSULE PO SCH (08:32)
[2016-10-24] MEDS: MULTIVITAMINS/MINERALS THERAP 1 TAB PO SCH (08:32)
--- NOTE | 2016-10-24 08:47 | IPN ---
DATE OF VISIT: 10/23/2016 VITAL SIGNS: Temperature 96.9, pulse 78, respirations 18, blood pressure 123/95. CURRENT MEDICATIONS: - Cymbalta 60 mg every morning - trazodone 50 mg nightly - Depakote discontinued PSYCHIATRIC HISTORY: The patient is again complaining of somatic issues regarding her catheter and bladder infection. She claims the bladder pain kept her awake until 3 a.m. last night. She states her mood is improved; however. She is going to [facility]. Her story on going to [place] has changed again. Initially she claims she went to [place] for two years and then dropped out. Several days later she reported going to a community college for six months that was associated with [place]. Now she reports that she snuck into one class on the [employer] campus with a girlfriend whose father was a professor. MENTAL STATUS EXAMINATION: The patient is alert, oriented and cooperative. Affect is improved. Speech is still pressured, loose and tangential. She is not voicing any current paranoid, grandiose delusions. Insight appears fair. Judgment appears fair. No current signs of dangerousness. Intelligence quotient (IQ)appears to be in the borderline intellectual functioning range, perhaps even mild mental retarded. IMPRESSION: Not specified depressive disorder. PLAN: 1. Continue psychotropics. 2. Staff to work on discharge planning.
[2016-10-24] MEDS ORDERED: TRAZO50TA PO (11:08)
[2016-10-24] MEDS ORDERED: DULO1CAP3 PO (11:08)
[2016-10-24] MEDS ORDERED: ALBU17IN2 INH (12:06)
[2016-10-24] MEDS ORDERED: NICO7DIS4 TD (12:06)
[2016-10-24] MEDS ORDERED: PYRI200T5 PO (12:06)
[2016-10-24] MEDS ORDERED: BACT800T5 PO (12:06)
[2016-10-24] MEDS ORDERED: LOVA1CAP17 PO (13:25)
[2016-10-24] MEDS ORDERED: PRIL40CA PO (13:31)
[2016-10-24] MEDS ORDERED: TYLE325T5 PO (13:36)
[2016-10-24] MEDS ORDERED: EXCETAB80 PO (13:37)
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
== END 2016-10-24 14:05 | disposition home or self-care (01) | DRG 754 ==
LOC: M ED 14:37 → M PSY 23:30
PROVIDERS: ADMIT Psychiatry & Neurology Psychiatry; ATTEND Psychiatry & Neurology Psychiatry
DX: F32.9 Major depressive disorder, single episode, unspecified (principal); M32.9 Systemic lupus erythematosus, unspecified; F70 Mild intellectual disabilities; I10 Essential (primary) hypertension; M79.7 Fibromyalgia; M35.3 Polymyalgia rheumatica; R32 Unspecified urinary incontinence; K21.9 Gastro-esophageal reflux disease without esophagitis; F41.9 Anxiety disorder, unspecified; G47.00 Insomnia, unspecified; F17.210 Nicotine dependence, cigarettes, uncomplicated; G43.909 Migraine, unspecified, not intractable, without status migrainosus; E66.9 Obesity, unspecified; Z68.31 Body mass index [BMI] 31.0-31.9, adult; Z91.5 Personal history of self-harm; Z79.891 Long term (current) use of opiate analgesic; Z79.899 Other long term (current) drug therapy; Z79.52 Long term (current) use of systemic steroids

== ENCOUNTER → 2016-11-21 | Outpatient (CLI) | payer MEDICARE, MEDICAID ==
[~2016-11-21] MED LIST changes: +ALBU17IN INH; +ALBU17IN2 INH; +BACT800T5 PO; +CYCL5TA PO; +DICL75TA PO; +DULO1CAP2 PO; +DULO1CAP3 PO; +ESTR25TA PO; +LISI10TA4 PO; +LOVA1CAP17 PO; +NARA2.5T PO; +NICO7DIS4 TD; +ONDA4TAB6 PO; +OXYC1TAB23 PO; +PRED5TA PO; +PRIL40CA PO; +PROP120C PO; +PYRI200T5 PO; +TRAZO50TA PO; +TYLE325T5 PO; +VALI5TAB PO
--- NOTE | 2016-12-13 00:55 | ECWPNPC ---
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 THORACIC PAIN HISTORY OF PRESENT ILLNESS HISTORY OF PRESENT ILLNESS: PAIN THE PATIENT DESCRIBES THE PAIN... FALL RISK SCREENING: SCREENING :NO FALLS IN THE PAST YEAR TODAY'S VISIT: NOTES: HAS HAD SOME SIGNIFICANT EMOTIONAL UPSETS AND ALSO HAS BEEN DIAGNOSED WITH POLYMYALGIA RHEUMATICA. STATES IS HAVE BREAKTHROUGH OF PAIN EVEN WITH 15 MG DAILY OF PREDNISONE. NOTES PAIN CONTINUES IN LOW BACK WELL IN ALL JOINTS. CURRENT MEDICATIONS TAKING CYCLOBENZAPRINE HCL 5 MG TABLET 1 TABLET ORALLY 2 TABS IN A.M. , 4 TABS IN P.M. TAKING ESTRADIOL 0.5 MG TABLET ORALLY DAILY TAKING NEXIUM 40 MG TABLET 1 TAB ORAL DAILY TAKING HYDROCHLOROTHIAZIDE 12.5 37.5 MG TABLET [facility] TRIAMETERENE ORAL DAILY TAKING LISINOPRIL 10 10 MG TABLET ORAL DAILY TAKING PROPRANOLOL HCL 120 MG ORALLY DAILY TAKING AMBIEN 10 MG TABLET ORAL AT BEDTIME TAKING PROAIR HFA 108 (90 BASE) MCG/ACT AEROSOL SOLUTION 2 PUFFS NEEDED INHALATION QID PRN TAKING TRAZODONE HCL 50 MG TABLET 1 TABLET AT BEDTIME NEEDED ORALLY ONCE A DAY TAKING NARATRIPTAN HCL 2.5 MG TABLET 1 TABLET NEEDED ONE TIME ORALLY ONCE A DAY TAKING IBUPROFEN 800 MG TABLET 1 TABLET ORALLY THREE TIMES DAILY NEEDED TAKING EXCEDRIN MIGRAINE 250-250-65 MG TABLET 2 TABLETS NEEDED ORALLY FOUR TIMES DAILY NEEDED TAKING STOOL SOFTENER 100 MG CAPSULE 1 CAPSULE NEEDED ORALLY ONCE A DAY TAKING ARTHROTEC 75 ORALLY BID TAKING DULOXETINE HCL 30 MG CAPSULE DELAYED RELEASE PARTICLES 1 CAPSULE ORALLY 60MGS IN A.M., 30MGS IN P.M., NOTES: 30 MG AT NIGHT AND 60 MG IN THE DAY TIME TAKING PREDNISONE 5 MGS 1 TAB ORAL TID, NOTES: 5 MG TWICE DAILY TAKING POTASSIUM 1 TAB ORAL DAILY TAKING MAGNESIUM 300 MG CAPSULE 1 CAPSULE WITH A MEAL ORALLY ONCE A DAY TAKING TURMERIC 500 MG CAPSULE ORALLY DAILY TAKING MELATONIN 10 MG CAPSULE 1 TABLET AT BEDTIME NEEDED WITH FOOD ORALLY PRN NOT-TAKING CYMBALTA 30 MG CAPSULE DELAYED RELEASE PARTICLES 1 CAPSULE ORALLY QHS NOT-TAKING CYMBALTA 60 MG 1 TABLET PO ONCE DAILY NOT-TAKING OXYCODONE-ACETAMINOPHEN 5-325 MG TABLET 1 TABLET NEEDED ORALLY EVERY 6 HRS NOT-TAKING VALIUM 5 MG TABLET 1 TABLET NEEDED ORALLY TWICE A DAY NOT-TAKING CATHETER INSERTION TRAY - KIT 16 F CATHETER INTRAVESICALLY Q 4WEEKS OR PRN NOT-TAKING LIDOCAINE HCL JELLY PRISON 2 % JELLY 1 APPLICATION TO AFFECTED AREA NEEDED INTRAVESICALLY PRIOR TO CATHETER INSERTION NOT-TAKING VALIUM 5 MG TABLET 2 TABLET ORALLY TAKE 2 TABS ON ARRIVAL TO CLINIC FOR PROCEDURE MDD=2, NOTES: 05-10-16 1015 NOT-TAKING PERCOCET 5-325 MG TABLET 2 TABLET ORALLY TAKE 2 TABS ON ARRIVAL FOR PROCEDURE MDD=2, NOTES: 05-10-16 1015 NOT-TAKING RIZATRIPTAN BENZOATE 10 MG TABLET 1 TABLET NEEDED ONE TIME ORALLY DIRECTED, NOTES: LDT 12/16/15 MEDICATION LIST REVIEWED AND RECONCILED WITH THE PATIENT PAST MEDICAL HISTORY HYPERTENSION ASTHMA REFLUX DENGERATIVE DISC DISEASE FIBROMYALGIA RADICULOPATHY LUPUS LSE ALLERGIES MORPHINE SULFATE: ANAPHYLAXIS: ALLERGY BACLOFEN: HIVES: ALLERGY SOCIAL HISTORY GENERAL: TOBACCO USE ARE YOU A:CURRENT SMOKER HOW MANY CIGARETTES A DAY DO YOU SMOKE?11-20 HOW SOON AFTER YOU WAKE UP DO YOU SMOKE YOUR FIRST CIGARETTE?31-60 MIN HOW OFTEN DO YOU SMOKE CIGARETTES?EVERY DAY PATIENT COUNSELED ON THE DANGERS OF TOBACCO USE AND URGED TO QUIT: COUNCELED ON THE IMPORTANCE OF QUITTING. PATIENT STATES SHE IS NOT READY. ARE YOU INTERESTED IN QUITTING?NOT READY TO QUIT LEARNING BARRIERS / SPECIAL NEEDS ORIENTED TO PLAN OF CARE: PATIENT, PAIN MANAGEMENT PATIENT, ORIENTED TO PLAN OF CARE: PATIENT, PAIN MANAGEMENT PATIENT. NEW PATIENT PAIN DIARY TODAY'S VISITNOTES FROM 0-10, WHAT LEVEL IS YOUR PAIN TODAY?0 PAIN CLINIC PFS, CLERGY, PUBLIC HEALTH REFERRALS PFS REFERRAL NEEDED?NO CLERGY REFERRAL NEEDED?NO PUBLIC HEALTH REFERRAL NEEDED?NO WAS THE PROVIDER NOTIFIED OF ANY PERTINENT INFO?NO PFS REFERRAL NEEDED?NO CLERGY REFERRAL NEEDED?NO PUBLIC HEALTH REFERRAL NEEDED?NO WAS THE PROVIDER NOTIFIED OF ANY PERTINENT INFO?NO REVIEW OF SYSTEMS CONSTITUTIONAL: ANY CHANGE IN YOUR MEDICAL CONDITION? YES DIAGNOSED WITH POLYMYALGIA HAD SUICIDAL ATTEMPT IN SEP. ADMITTED 10/13 AT [facility] IN ICU THEN [facility] FOR 10 DAYS . CHILLS NO . FEVER NO . INFECTION: DO YOU HAVE NEW INFECTIONS? NO . DO YOU HAVE HISTORY OF MRSA? NO . MUSCULOSKELETAL: ANY NEW PATTERNS OF PAIN OR NUMBNESS? YES NUMBNESS IN NECK, SHOULDERS, BACK DOWN GO CALVES . GASTROENTEROLOGY: ANY NEW CHANGE IN BOWEL CONTROL? NO . GENITOURINARY: ANY NEW CHANGE IN BLADDER CONTROL? NO . IS THERE A CHANCE YOU COULD BE ? NO . HEMATOLOGY/LYMPH: DO YOU TAKE ANY BLOOD THINNERS? (FOR EXAMPLE- COUMADIN, PLAVIX, AGGRENOX, PLATEL, PRADAXA, OR XARELTO) NO . WHEN WAS YOUR LAST DOSE? DATE: TIME: . NEUROLOGY: HAVE YOU FALLEN IN THE PAST 6 MONTHS? NO . ANY NEW EXTREMITY NUMBNESS OR WEAKNESS? YES NUMBNESS ABOVE . CARDIOLOGY: DO YOU HAVE A PACEMAKER OR DEFIBRILLATOR? NO . RESPIRATORY: HAVE YOU BEEN SICK IN THE PAST WEEK? NO . FEVER NO . FLU LIKE SYMPTOMS? NO . COUGH NO . INTEGUMENTARY: DO YOU HAVE ANY RASHES OR OPEN SORES? NO . ALLERGIC/IMMUNO: ARE YOU ALLERGIC TO SHELLFISH OR IV DYE? NO . ANY NEW ALLERGIES? NO . PSYCHIATRIC: DO YOU HAVE THOUGHTS OF HURTING YOURSELF OR SOMEONE ELSE? NO . ARE YOU ABUSED, NEGLECTED, OR IN AN UNSAFE ENVIRONMENT? NO . ENDOCRINOLOGY: ARE YOU DIABETIC? NO . OTHER: DO YOU NEED ANY PRESCRIPTIONS? NO . IF YES, PLEASE LIST: ____ . ANY NEW PROBLEMS WITH YOUR MEDICATIONS? NO . WHEN DID YOU LAST EAT? ____ . WHEN DID YOU LAST DRINK? ____ . WHAT DID YOU LAST DRINK? ____ . NAME OF PERSON DRIVING YOU HOME? ____ . DO YOU HAVE ANY OTHER QUESTIONS OR CONCERNS NO . UROLOGY: GENERAL IS NOW FEELING URGE TO URINATE AND CATHETER IS OUT . REVIEWED BY: PROVIDER: EDELMIRA CERON . VITAL SIGNS WT 186 LBS, HT 67 IN, BMI 29.13 INDEX, BP 120/78 MM HG, HR 93 /MIN, RR 16 /MIN, TEMP 98.6 F, OXYGEN SAT % 95, REVIEWED BY: AD. EXAMINATION GENERAL EXAMINATION: PSYCHALERT , ORIENTED X 3 , AFFECT FLAT. LUNGS:CLEAR TO AUSCULTATION BILATERALLY. HEART:HEART RATE REGULAR. MUSCULOSKELETAL:POINT TENDERNESS OVER R>L SIJ. PAIN WITH PAL OVER THOR AND LUMBAR PARAVERTEBRAL MUSCLES.. JOINTS:JOINT PAIN OVER BOTH KNEES, AND BOTH SHOULDERS. 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 TREATMENT SYSTEMIC LUPUS ERYTHEMATOSUS WITH OTHER ORGAN INVOLVEMENT, UNSPECIFIED SLE TYPE [facility], L[facility] WITHOUT [id number] NOTES: FALLS CARE PLAN: 1. RECOMMEND REMOVING ALL THROW RUGS. 2. RECOMMEND NIGHT LIGHTS 3. RECOMMEND WEARING RUBBER SOLED SHOES AND TO NOT GO BAREFOOT. 4.. ADVISED TO CHANGE POSITION SLOWLY FROM SUPINE TO STANDING TO AVOID DIZZINESS. %, USE [employer] OR KEEP PORTABLE PHONE READILY AVAILABLE, # 226 TOBACCO USE SCREENING/INTERVENTION: PATIENT CURRENTLY USED TOBACCO. WAS OFFERED SMOKING CESSATION FOR GUIDANCE IN QUITTING THROUGH THE [facility] QUITS PROGRAM AND THE [facility] CESSATION PROGRAM. PROCEDURE CODES FA211 ESTABILISHED PATIENT [facility] F[facility] CHARGE G8783 BP SCR PRFRM RCMDD DEFIND SCR INTVL G8730 PAIN ASSESS POS TOOL F/U PLAN DOC 3016F PT SCRND UNHLTHY OH USE 1124F ACP DISCUSS-NO [id number] DOCD 0518F FALL PLAN OF CARE DOCD G8427 DOC MEDS VERIFIED W/PT OR RE G8420 BMI<30 AND >=22 CALC & DOCU 3288F FALL RISK ASSESSMENT DOCD 4004F PT TOBACCO SCREEN RCVD TLK DISPOSITION & COMMUNICATION FOLLOW UP 1 MONTH (REASON: NEED PRIOR AUTH FOR MRI OF LS SPINE) ELECTRONICALLY SIGNED BY GRACE FERNANDEZ ON 12/11/2016 AT 07:06 PM EST DISCLAIMER : THIS IS A VISIT SUMMARY EXTRACTED FROM THE [employer] CHART. IT IS NOT A COPY OF THE [employer] PROGRESS NOTE. MTDD
== END ==
LOC: M PAIN 09:20
PROVIDERS: ATTEND Nurse Practitioner Family
DX: Z09 Encounter for follow-up examination after completed treatment for conditions other than malignant neoplasm (principal); G89.29 Other chronic pain; M32.19 Other organ or system involvement in systemic lupus erythematosus; M35.3 Polymyalgia rheumatica; M79.7 Fibromyalgia; M54.16 Radiculopathy, lumbar region; I10 Essential (primary) hypertension; J45.909 Unspecified asthma, uncomplicated; K21.9 Gastro-esophageal reflux disease without esophagitis; F17.200 Nicotine dependence, unspecified, uncomplicated; Z88.5 Allergy status to narcotic agent; Z88.8 Allergy status to other drugs, medicaments and biological substances; Z79.1 Long term (current) use of non-steroidal anti-inflammatories (NSAID); Z79.52 Long term (current) use of systemic steroids; Z79.899 Other long term (current) drug therapy

== ENCOUNTER → 2017-01-23 | Outpatient (REF) | payer MEDICARE, MEDICAID ==
[2017-01-25 00:08] LABS: Candida species Negative (Negative); Gardnerella vaginalis Negative (Negative); Trichamonas vaginalis Negative (Negative)
== END ==
LOC: M SMT 13:10
PROVIDERS: ATTEND Specialist
DX: R33.9 Retention of urine, unspecified (principal); N76.0 Acute vaginitis
CPT/HCPCS: 51702; 51798; 87480; 87510; 87660; G0463

== ENCOUNTER → 2017-02-08 | Outpatient (CLI) | payer MEDICARE, MEDICAID ==
--- NOTE | 2017-02-23 00:15 | ECWPNPC ---
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 THORACIC PAIN HISTORY OF PRESENT ILLNESS TODAY'S VISIT: NOTES: RTC AFTER COMPLETION OF THE MRI OF LOW BACK. HAS AREAS OF PAIN AT BASE OF NECK, AT BASE OF SHOULDER BLADES, RIGHT LOW BACK AND BILATATERAL SACRUM. NO PAIN SHOOTING INTO LEG. HAS NUMBNESS AND TINGLING RATES PAIN TODAY 6-7/10. DESCRIBES PAIN THROBBING, PINCHING AND SORE. CURRENT MEDICATIONS TAKING CYCLOBENZAPRINE HCL 5 MG TABLET 1 TABLET ORALLY 2 TABS IN A.M. , 4 TABS IN P.M. TAKING ESTRADIOL 0.5 MG TABLET ORALLY DAILY TAKING NEXIUM 40 MG TABLET 1 TAB ORAL DAILY TAKING HYDROCHLOROTHIAZIDE 12.5 37.5 MG TABLET [facility] TRIAMETERENE ORAL DAILY TAKING LISINOPRIL 10 10 MG TABLET ORAL DAILY TAKING PROPRANOLOL HCL 120 MG ORALLY DAILY TAKING AMBIEN 10 MG TABLET ORAL AT BEDTIME TAKING PROAIR HFA 108 (90 BASE) MCG/ACT AEROSOL SOLUTION 2 PUFFS NEEDED INHALATION QID PRN TAKING TRAZODONE HCL 150 MG TABLET 1 TABLET AT BEDTIME NEEDED ORALLY ONCE A DAY TAKING NARATRIPTAN HCL 2.5 MG TABLET 1 TABLET NEEDED ONE TIME ORALLY ONCE A DAY TAKING IBUPROFEN 800 MG TABLET 1 TABLET ORALLY THREE TIMES DAILY NEEDED TAKING EXCEDRIN MIGRAINE 250-250-65 MG TABLET 2 TABLETS NEEDED ORALLY FOUR TIMES DAILY NEEDED TAKING STOOL SOFTENER 100 MG CAPSULE 1 CAPSULE NEEDED ORALLY ONCE A DAY TAKING DULOXETINE HCL 30 MG CAPSULE DELAYED RELEASE PARTICLES 1 CAPSULE ORALLY 60MGS IN A.M., 30MGS IN P.M., NOTES: 30 MG AT NIGHT AND 60 MG IN THE DAY TIME TAKING PREDNISONE 5 MGS 1 TAB ORAL BID, NOTES: 5 MG TWICE DAILY TAKING POTASSIUM 1 TAB ORAL DAILY TAKING MAGNESIUM 300 MG CAPSULE 1 CAPSULE WITH A MEAL ORALLY ONCE A DAY TAKING TURMERIC 500 MG CAPSULE ORALLY DAILY NOT-TAKING LIDOCAINE HCL JELLY DETENTION 2 % JELLY 1 APPLICATION TO AFFECTED AREA NEEDED INTRAVESICALLY PRIOR TO PROCEDURE NOT-TAKING ARTHROTEC 75 ORALLY BID NOT-TAKING MELATONIN 10 MG CAPSULE 1 TABLET AT BEDTIME NEEDED WITH FOOD ORALLY PRN NOT-TAKING URECHOLINE 50 MG TABLET 2 TABLETS ON AN EMPTY STOMACH ORALLY 3 TIMES A DAY NOT-TAKING CYMBALTA 30 MG CAPSULE DELAYED RELEASE PARTICLES 1 CAPSULE ORALLY QHS NOT-TAKING CYMBALTA 60 MG 1 TABLET PO ONCE DAILY NOT-TAKING OXYCODONE-ACETAMINOPHEN 5-325 MG TABLET 1 TABLET NEEDED ORALLY EVERY 6 HRS NOT-TAKING VALIUM 5 MG TABLET 1 TABLET NEEDED ORALLY TWICE A DAY NOT-TAKING CATHETER INSERTION TRAY - KIT 16 F CATHETER INTRAVESICALLY Q 4WEEKS OR PRN NOT-TAKING LIDOCAINE HCL JELLY DETENTION 2 % JELLY 1 APPLICATION TO AFFECTED AREA NEEDED INTRAVESICALLY PRIOR TO CATHETER INSERTION NOT-TAKING VALIUM 5 MG TABLET 2 TABLET ORALLY TAKE 2 TABS ON ARRIVAL TO CLINIC FOR PROCEDURE MDD=2, NOTES: 05-10-16 1015 NOT-TAKING PERCOCET 5-325 MG TABLET 2 TABLET ORALLY TAKE 2 TABS ON ARRIVAL FOR PROCEDURE MDD=2, NOTES: 05-10-16 1015 NOT-TAKING RIZATRIPTAN BENZOATE 10 MG TABLET 1 TABLET NEEDED ONE TIME ORALLY DIRECTED, NOTES: LDT 12/16/15 MEDICATION LIST REVIEWED AND RECONCILED WITH THE PATIENT PAST MEDICAL HISTORY HYPERTENSION ASTHMA REFLUX DENGERATIVE DISC DISEASE FIBROMYALGIA RADICULOPATHY LUPUS LSE ALLERGIES MORPHINE SULFATE: ANAPHYLAXIS: ALLERGY BACLOFEN: HIVES: ALLERGY REVIEW OF SYSTEMS FOLLOW-UP ROS: CARDIOLOGY: NEGATIVE FOR, CHEST PAIN, LEGS SWELLING . INTEGUMENT NO UNUSUAL RASH OR CHANGING LESIONS . GASTROENTEROLOGY: NO NAUSEA, VOMITING, DIARRHEA, CONSTIPATION, MELENA, HEMATOCHEZIA. APPETITE IMPROVED . GI/ URINARY FREQ, HARD TO EMPTY BLADDER . PSYCHOLOGY: POSITIVE FOR, ANXIETY, DEPRESSED MOOD, CONTINUES WITH COUNSELING . PULMONOLOGY: NEGATIVE FOR, COUGH, SHORTNESS OF BREATH . VITAL SIGNS WT 185.8 LBS, HT 67 IN, BMI 29.10 INDEX, BP 123/85 MM HG, HR 95 /MIN, RR 18 /MIN, TEMP 98.5 F, OXYGEN SAT % 95%, NA INITIALS AW 1424. EXAMINATION GENERAL EXAMINATION: PSYCHALERT , ORIENTED X 3 , AFFECT FLAT. LUNGS:CLEAR TO AUSCULTATION BILATERALLY. HEART:HEART RATE REGULAR. MUSCULOSKELETAL:POINT TENDERNESS OVER R>L SIJ. PAIN WITH PALPATION OVER THORACIC AND LUMBAR PARAVERTEBRAL MUSCLES AND SPINOUS PROCESSES. RISES EASILY TO STANDING POSITION. STILL WITH ISSUES WITH BALANCE. GAIT NONANTALGIC. JOINTS:JOINT PAIN OVER BOTH KNEES, AND BOTH SHOULDERS. ASSESSMENTS LUMBAR DISC DISPLACEMENT WITHOUT MYELOPATHY - M51.26 (PRIMARY) MYALGIA - M79.1 LUMBAR RADICULOPATHY, CHRONIC - M54.16 TREATMENT LUMBAR DISC DISPLACEMENT WITHOUT MYELOPATHY CAUDAL/LUMBAR EPIDURALEDELMIRA PATEL 02/08/2017 2:51:59 PM > INTRA LAMIAR NOTES: CONSIDER ALTERNATING IBUPROFEN WITH TYLENOL MAX 3000 MG. PROCEDURE CODES FA211 ESTABILISHED PATIENT [facility] CHARGE DISPOSITION & COMMUNICATION FOLLOW UP AFTER INJECTION (REASON: CHECK AUTH FOR INTRALAMINAR ESB) ELECTRONICALLY SIGNED BY GRACE FERNANDEZ ON 02/22/2017 AT 04:21 PM EDT DISCLAIMER : THIS IS A VISIT SUMMARY EXTRACTED FROM THE [employer] CHART. IT IS NOT A COPY OF THE [employer] PROGRESS NOTE. YAMILETH
== END | disposition home or self-care (01) ==
LOC: M PAIN 14:00
PROVIDERS: ATTEND Nurse Practitioner Family
DX: G89.29 Other chronic pain (principal); M51.26 Other intervertebral disc displacement, lumbar region; M79.1 Myalgia; M54.16 Radiculopathy, lumbar region; I10 Essential (primary) hypertension; J45.909 Unspecified asthma, uncomplicated; K21.9 Gastro-esophageal reflux disease without esophagitis; M32.19 Other organ or system involvement in systemic lupus erythematosus; Z79.899 Other long term (current) drug therapy; Z79.52 Long term (current) use of systemic steroids; Z88.5 Allergy status to narcotic agent; Z88.8 Allergy status to other drugs, medicaments and biological substances

== ENCOUNTER → 2017-03-21 | Outpatient (CLI) | payer MEDICARE, MEDICAID ==
[~2017-03-21] MED LIST changes: +BUPIVACAINE HCL 0.25% 10 ML VIAL As Ordered ONE; +BUPIVACAINE HCL 0.25% 30 ML VIAL As Ordered ONE; +TRIAMCINOLONE ACETONIDE SUSP 40 MG/ML VIAL (J3301) As Ordered ONE; +diazePAM 5 MG TAB As Ordered ONE; +oxyCODONE 5MG TAB As Ordered ONE
--- NOTE | 2017-03-25 23:26 | ECWPNPC ---
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 LE HISTORY OF PRESENT ILLNESS HISTORY OF PRESENT ILLNESS: PAIN THE PATIENT DESCRIBES THE PAIN... FALL RISK SCREENING: SCREENING :NO FALLS IN THE PAST YEAR CURRENT MEDICATIONS TAKING CYCLOBENZAPRINE HCL 5 MG TABLET 1 TABLET ORALLY 2 TABS IN A.M. , 4 TABS IN P.M., NOTES: 729 TAKING ESTRADIOL 0.5 MG TABLET ORALLY DAILY, NOTES: 729 TAKING NEXIUM 40 MG TABLET 1 TAB ORAL DAILY, NOTES: 03/20/17 TAKING HYDROCHLOROTHIAZIDE 12.5 37.5 MG TABLET WIH TRIAMETERENE ORAL DAILY, NOTES: 08 TAKING LISINOPRIL 10 10 MG TABLET ORAL DAILY, NOTES: 03/20/17 TAKING PROPRANOLOL HCL 120 MG ORALLY DAILY, NOTES: 729 TAKING AMBIEN 10 MG TABLET ORAL AT BEDTIME, NOTES: 03/20/17 TAKING PROAIR HFA 108 (90 BASE) MCG/ACT AEROSOL SOLUTION 2 PUFFS NEEDED INHALATION QID PRN, NOTES: WEEK AGO TAKING TRAZODONE HCL 150 MG TABLET 1 TABLET AT BEDTIME NEEDED ORALLY ONCE A DAY, NOTES: 03/20/17@2129 TAKING IBUPROFEN 800 MG TABLET 1 TABLET ORALLY THREE TIMES DAILY NEEDED, NOTES: 729 TAKING EXCEDRIN MIGRAINE 250-250-65 MG TABLET 2 TABLETS NEEDED ORALLY FOUR TIMES DAILY NEEDED, NOTES: 03/20/17@1300 TAKING STOOL SOFTENER 100 MG CAPSULE 1 CAPSULE NEEDED ORALLY ONCE A DAY, NOTES: 03/20/17@2129 TAKING DULOXETINE HCL 30 MG CAPSULE DELAYED RELEASE PARTICLES 1 CAPSULE ORALLY 60MGS IN A.M., 30MGS IN P.M., NOTES: 929 TAKING PREDNISONE 5 MGS 1 TAB ORAL BID, NOTES: 30 TAKING POTASSIUM 1 TAB ORAL DAILY, NOTES: 729 TAKING MAGNESIUM 300 MG CAPSULE 1 CAPSULE WITH A MEAL ORALLY ONCE A DAY, NOTES: 729 TAKING TURMERIC 500 MG CAPSULE ORALLY DAILY, NOTES: 30 NOT-TAKING LIDOCAINE HCL JELLY SENIOR LIVING 2 % JELLY 1 APPLICATION TO AFFECTED AREA NEEDED INTRAVESICALLY PRIOR TO PROCEDURE NOT-TAKING ARTHROTEC 75 ORALLY BID NOT-TAKING MELATONIN 10 MG CAPSULE 1 TABLET AT BEDTIME NEEDED WITH FOOD ORALLY PRN NOT-TAKING URECHOLINE 50 MG TABLET 2 TABLETS ON AN EMPTY STOMACH ORALLY 3 TIMES A DAY NOT-TAKING CYMBALTA 30 MG CAPSULE DELAYED RELEASE PARTICLES 1 CAPSULE ORALLY QHS NOT-TAKING CYMBALTA 60 MG 1 TABLET PO ONCE DAILY NOT-TAKING OXYCODONE-ACETAMINOPHEN 5-325 MG TABLET 1 TABLET NEEDED ORALLY EVERY 6 HRS NOT-TAKING VALIUM 5 MG TABLET 1 TABLET NEEDED ORALLY TWICE A DAY NOT-TAKING CATHETER INSERTION TRAY - KIT 16 F CATHETER INTRAVESICALLY Q 4WEEKS OR PRN NOT-TAKING LIDOCAINE HCL JELLY SENIOR LIVING 2 % JELLY 1 APPLICATION TO AFFECTED AREA NEEDED INTRAVESICALLY PRIOR TO CATHETER INSERTION NOT-TAKING VALIUM 5 MG TABLET 2 TABLET ORALLY TAKE 2 TABS ON ARRIVAL TO CLINIC FOR PROCEDURE MDD=2, NOTES: 05-10-16 1015 NOT-TAKING PERCOCET 5-325 MG TABLET 2 TABLET ORALLY TAKE 2 TABS ON ARRIVAL FOR PROCEDURE MDD=2, NOTES: 05-10-16 1015 NOT-TAKING RIZATRIPTAN BENZOATE 10 MG TABLET 1 TABLET NEEDED ONE TIME ORALLY DIRECTED, NOTES: LDT 12/16/15 DISCONTINUED NARATRIPTAN HCL 2.5 MG TABLET 1 TABLET NEEDED ONE TIME ORALLY ONCE A DAY MEDICATION LIST REVIEWED AND RECONCILED WITH THE PATIENT PAST MEDICAL HISTORY HYPERTENSION ASTHMA REFLUX DENGERATIVE DISC DISEASE FIBROMYALGIA RADICULOPATHY LUPUS LSE ALLERGIES MORPHINE SULFATE: ANAPHYLAXIS: ALLERGY BACLOFEN: HIVES: ALLERGY REVIEW OF SYSTEMS CONSTITUTIONAL: ANY CHANGE IN YOUR MEDICAL CONDITION? NO . CHILLS NO . FEVER NO . INFECTION: DO YOU HAVE NEW INFECTIONS? NO . DO YOU HAVE HISTORY OF MRSA? NO . MUSCULOSKELETAL: ANY NEW PATTERNS OF PAIN OR NUMBNESS? NO . GASTROENTEROLOGY: ANY NEW CHANGE IN BOWEL CONTROL? NO . GENITOURINARY: ANY NEW CHANGE IN BLADDER CONTROL? NO . IS THERE A CHANCE YOU COULD BE ? NO . HEMATOLOGY/LYMPH: DO YOU TAKE ANY BLOOD THINNERS? (FOR EXAMPLE- COUMADIN, PLAVIX, AGGRENOX, PLATEL, PRADAXA, OR XARELTO) NO . WHEN WAS YOUR LAST DOSE? DATE: TIME: . NEUROLOGY: HAVE YOU FALLEN IN THE PAST 6 MONTHS? NO . ANY NEW EXTREMITY NUMBNESS OR WEAKNESS? NO . CARDIOLOGY: DO YOU HAVE A PACEMAKER OR DEFIBRILLATOR? NO . RESPIRATORY: HAVE YOU BEEN SICK IN THE PAST WEEK? NO . FEVER NO . FLU LIKE SYMPTOMS? NO . COUGH NO . INTEGUMENTARY: DO YOU HAVE ANY RASHES OR OPEN SORES? NO . ALLERGIC/IMMUNO: ARE YOU ALLERGIC TO SHELLFISH OR IV DYE? NO . ANY NEW ALLERGIES? NO . PSYCHIATRIC: DO YOU HAVE THOUGHTS OF HURTING YOURSELF OR SOMEONE ELSE? NO . ARE YOU ABUSED, NEGLECTED, OR IN AN UNSAFE ENVIRONMENT? NO . ENDOCRINOLOGY: ARE YOU DIABETIC? NO . OTHER: DO YOU NEED ANY PRESCRIPTIONS? NO . IF YES, PLEASE LIST: ____ . ANY NEW PROBLEMS WITH YOUR MEDICATIONS? NO . WHEN DID YOU LAST EAT? ____03/20/17 . WHEN DID YOU LAST DRINK? ____829 . WHAT DID YOU LAST DRINK? ____WATER . NAME OF PERSON DRIVING YOU HOME? ____[employer] . DO YOU HAVE ANY OTHER QUESTIONS OR CONCERNS NO . REVIEWED BY: PROVIDER: . VITAL SIGNS WT 183.4 LBS, HT 67 IN, BMI 28.72 INDEX, BP 113/84 MM HG, HR 95 /MIN, RR 18 /MIN, TEMP 97.3 F, OXYGEN SAT % 96%, NA INITIALS SC 10:29, REVIEWED BY: VD. ASSESSMENTS MYALGIA - M79.1 (PRIMARY) PROCEDURES PN TRIGGER POINT INJECTION WITH STEROIDS PRE PROCEDURE DIAGNOSIS 1. MYALGIA 2. PAIN AT RIGHT LOWER BACK AREA POST PROCEDURE DIAGNOSIS 1. MYALGIA 2. PAIN AT RIGHT LOWER BACK AREA PROCEDURE TRIGGER POINT INJECTION AT RIGHT LOWER BACK AREA SURGEON DR. CNONIE KAUR CLEAN UP HELPER BANQUET NONE ANESTHESIA LOCAL PRE PROCEDURE NOTE THE PATIENT HAS A HISTORY OF CHRONIC PAIN AT THE RIGHT LOWER BACK AREA. I EVALUATE THE PATIENT AND REVIEWED THE CHART. THERE IS EVIDENCE OF BANDS OF TISSUE WITH RESTRICTION OF MOVEMENT AND PRESENCE OF TRIGGER POINT AT THE AFFECTED AREA. I WENT OVER THE RISKS, ALTERNATIVES, AND BENEFITS ASSOCIATED WITH THIS PROCEDURE. THE PATIENT WOULD LIKE TO PROCEED AND GIVE CONSENT TO PERFORMED THE PROCEDURE. THE PATIENT DENIES UNEXPLAINABLE WEIGHT LOSS, FEVER, CHILLS, OR NEW CHANGES IN URINARY OR BOWEL CONTROL DESCRIPTION OF PROCEDURE THE PATIENT WAS BROUGHT TO THE PROCEDURE ROOM AND PLACED IN THE SITTING POSITION. THE AREA WAS CLEANED WITH ALCOHOL. THE PROCEDURE WAS DONE USING [employer]SE[employer] STERILE TECHNIQUE. I CHECKED LATERALITY AND THE LEVEL WHERE THE PROCEDURE WAS GOING TO BE PERFORMED WITH THE PATIENT AND THE SUPPORTING STAFF AT THE MOMENT OF THE TIME OUT IN THE PROCEDURE ROOM. USING A 25-GAUGE NEEDLE, TRIGGER POINTS WERE INJECTED AT THE RIGHT LOWER BACK AREA WITH A TOTAL OF 40 ML OF BUPIVACAINE 0.25% AND KENALOG 40 MG. THERE WAS NO EVIDENCE OF BLOOD, PARESTHESIA OR CEREBROSPINAL FLUID DURING THE PROCEDURE. THE PATIENT WAS SENT TO THE RECOVERY ROOM. THE PATIENT WAS MOVING THE EXTREMITIES AND DOING WELL. THERE WAS NO COMPLICATION DURING THE PROCEDURE POST PROCEDURE NOTE THE PATIENT WILL BE SEEN IN A FOLLOW UP IN THE NEXT FEW WEEKS. INSTRUCTIONS WERE GIVEN, QUESTIONS WERE ANSWERED, AND THE PATIENT EXPRESSED UNDERSTANDING AND AGREES WITH THE PLAN. I, TRISHA GUPTA, DOCUMENTED THE ABOVE INFORMATION ACTING A SCRIBE FOR DR. KAUR. I, DR. KAUR, HAVE REVIEWED THE ABOVE DOCUMENT, SCRIBED BY TRISHA GUPTA, AND I VERIFY THAT IT IS ACCURATE PROCEDURE CODES 97940 INJ TRIGGER POINT 10/23 [facility] [place] [facility] FOLLOW UP 3 WEEKS ELECTRONICALLY SIGNED BY CONNIE KAUR MD ON 03/25/2017 AT 05:25 PM EDT DISCLAIMER : THIS IS A VISIT SUMMARY EXTRACTED FROM THE [employer] CHART. IT IS NOT A COPY OF THE [email or web address] PROGRESS NOTE. YAMILETH
== END | disposition home or self-care (01) ==
LOC: M PAIN 10:20
PROVIDERS: ATTEND Anesthesiology
DX: G89.29 Other chronic pain (principal); M79.1 Myalgia; I10 Essential (primary) hypertension; J45.909 Unspecified asthma, uncomplicated; K21.9 Gastro-esophageal reflux disease without esophagitis; M51.9 Unspecified thoracic, thoracolumbar and lumbosacral intervertebral disc disorder; M54.14 Radiculopathy, thoracic region; M32.19 Other organ or system involvement in systemic lupus erythematosus; Z79.899 Other long term (current) drug therapy; Z79.52 Long term (current) use of systemic steroids; Z88.5 Allergy status to narcotic agent; Z88.8 Allergy status to other drugs, medicaments and biological substances
CPT/HCPCS: 20552; J3301

== ENCOUNTER → 2017-05-03 | Outpatient (CLI) | payer MEDICARE, MEDICAID ==
[~2017-05-03] MED LIST changes: -BUPIVACAINE HCL 0.25% 10 ML VIAL As Ordered ONE; -BUPIVACAINE HCL 0.25% 30 ML VIAL As Ordered ONE; -CYCL5TA PO; +CYCL5TAB PO; +PYRI1TAB5 PO; -PYRI200T5 PO; -TRIAMCINOLONE ACETONIDE SUSP 40 MG/ML VIAL (J3301) As Ordered ONE; -diazePAM 5 MG TAB As Ordered ONE; -oxyCODONE 5MG TAB As Ordered ONE
--- NOTE | 2017-05-28 00:05 | ECWPNPC ---
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 BACK HISTORY OF PRESENT ILLNESS HISTORY OF PRESENT ILLNESS: PAIN THE PATIENT DESCRIBES THE PAIN... FALL RISK SCREENING: SCREENING :NO FALLS IN THE PAST YEAR TODAY'S VISIT: NOTES: IS S/P TRIGGER POINT INJECTIONS TO LOW BACK. PAIN AND SWELLING HAD INCEASED SO DECISION TO MOVE FROM LE TO TPI WAS MADE. NOTED SOME IMPROVEMENT BUT STATES LE ACTUALLY WORKS BETTER.IS CURRENTLY HAVING PAIN SHOOTING INTO R>L LEG TO KNEE. IS HAVING [facility] IN LEGS.. IS HAVING THROBBING AND PINCHING THROUGH LOW BACK AND LEGS. DR FISCHER HAS TOLD HER THAT SHE IS HAVING A FLAIR OF FIBRO. IS USING HEATING PAD, TENS UNIT. . CURRENT MEDICATIONS TAKING CYCLOBENZAPRINE HCL 5 MG TABLET 1 TABLET ORALLY 1 TABS IN A.M. , 2-3 TABS IN P.M., NOTES: 07 TAKING ESTRADIOL 0.5 MG TABLET ORALLY DAILY, NOTES: 729 TAKING NEXIUM 40 MG TABLET 1 TAB ORAL DAILY, NOTES: 03/20/17@2129 TAKING HYDROCHLOROTHIAZIDE 12.5 37.5 MG TABLET [facility] TRIAMETERENE ORAL DAILY, NOTES: 0800 TAKING LISINOPRIL 10 10 MG TABLET ORAL DAILY, NOTES: 03/20/17@2129 TAKING PROPRANOLOL HCL 120 MG ORALLY DAILY, NOTES: 729 TAKING AMBIEN 10 MG TABLET ORAL AT BEDTIME, NOTES: 03/20/17@2129 TAKING PROAIR HFA 108 (90 BASE) MCG/ACT AEROSOL SOLUTION 2 PUFFS NEEDED INHALATION QID PRN, NOTES: WEEK AGO TAKING TRAZODONE HCL 150 MG TABLET 1 TABLET AT BEDTIME NEEDED ORALLY ONCE A DAY, NOTES: 03/20/17@2129 TAKING IBUPROFEN 800 MG TABLET 1 TABLET ORALLY THREE TIMES DAILY NEEDED, NOTES: 729 TAKING EXCEDRIN MIGRAINE 250-250-65 MG TABLET 2 TABLETS NEEDED ORALLY FOUR TIMES DAILY NEEDED, NOTES: 03/20/17@1300 TAKING STOOL SOFTENER 100 MG CAPSULE 1 CAPSULE NEEDED ORALLY ONCE A DAY, NOTES: 03/20/17@2129 TAKING DULOXETINE HCL 30 MG CAPSULE DELAYED RELEASE PARTICLES 1 CAPSULE ORALLY TWICE DAILY, NOTES: 929 TAKING PREDNISONE 5 MGS 1 TAB ORAL THREE TIMES A DAY, NOTES: 729 TAKING TURMERIC 500 MG CAPSULE ORALLY DAILY, NOTES: 729 TAKING POTASSIUM 99 MG TABLET 1 TABLET ORALLY ONCE A DAY TAKING MAGNESIUM 400 MG CAPSULE ORALLY TAKING OXYCODONE-ACETAMINOPHEN 5-300 MG TABLET ORALLY ONCE DAILY NEEDED FOR PAIN TAKING PRAMIPEXOLE DIHYDROCHLORIDE 0.125 MG TABLET 1-2 TABLET BEFORE BEDTIME ORALLY ONCE A DAY 3-4 HR BEFORE BEDTIME NOT-TAKING VALIUM 5 MG TABLET 1 TABLET NEEDED ORALLY TWICE A DAY NOT-TAKING CATHETER INSERTION TRAY - KIT 16 F CATHETER INTRAVESICALLY Q 4WEEKS OR PRN NOT-TAKING LIDOCAINE HCL JELLY ASSISTED 2 % JELLY 1 APPLICATION TO AFFECTED AREA NEEDED INTRAVESICALLY PRIOR TO CATHETER INSERTION DISCONTINUED POTASSIUM 1 TAB ORAL DAILY, NOTES: 729 DISCONTINUED MAGNESIUM 300 MG CAPSULE 1 CAPSULE WITH A MEAL ORALLY ONCE A DAY, NOTES: 729 DISCONTINUED LIDOCAINE HCL JELLY ASSISTED 2 % JELLY 1 APPLICATION TO AFFECTED AREA NEEDED INTRAVESICALLY PRIOR TO PROCEDURE DISCONTINUED ARTHROTEC 75 ORALLY BID DISCONTINUED MELATONIN 10 MG CAPSULE 1 TABLET AT BEDTIME NEEDED WITH FOOD ORALLY PRN DISCONTINUED URECHOLINE 50 MG TABLET 2 TABLETS ON AN EMPTY STOMACH ORALLY 3 TIMES A DAY DISCONTINUED CYMBALTA 30 MG CAPSULE DELAYED RELEASE PARTICLES 1 CAPSULE ORALLY QHS DISCONTINUED CYMBALTA 60 MG 1 TABLET PO ONCE DAILY DISCONTINUED OXYCODONE-ACETAMINOPHEN 5-325 MG TABLET 1 TABLET NEEDED ORALLY EVERY 6 HRS DISCONTINUED VALIUM 5 MG TABLET 2 TABLET ORALLY TAKE 2 TABS ON ARRIVAL TO CLINIC FOR PROCEDURE MDD=2, NOTES: 05-10-16 1015 DISCONTINUED PERCOCET 5-325 MG TABLET 2 TABLET ORALLY TAKE 2 TABS ON ARRIVAL FOR PROCEDURE MDD=2, NOTES: 05-10-16 1015 DISCONTINUED RIZATRIPTAN BENZOATE 10 MG TABLET 1 TABLET NEEDED ONE TIME ORALLY DIRECTED, NOTES: LDT 12/16/15 MEDICATION LIST REVIEWED AND RECONCILED WITH THE PATIENT PAST MEDICAL HISTORY HYPERTENSION ASTHMA REFLUX DENGERATIVE DISC DISEASE FIBROMYALGIA RADICULOPATHY LUPUS LSE ALLERGIES MORPHINE SULFATE: ANAPHYLAXIS: ALLERGY BACLOFEN: HIVES: ALLERGY REVIEW OF SYSTEMS REVIEWED BY: PROVIDER: EDELMIRA CERON . CONSTITUTIONAL: ANY CHANGE IN YOUR MEDICAL CONDITION? YES, LEG AND FOOT CRAMPS AND SPASMS ON A NEW MED FOR IT . CHILLS NO . FEVER NO . INFECTION: DO YOU HAVE NEW INFECTIONS? NO . DO YOU HAVE HISTORY OF MRSA? NO . MUSCULOSKELETAL: ANY NEW PATTERNS OF PAIN OR NUMBNESS? NO . GASTROENTEROLOGY: ANY NEW CHANGE IN BOWEL CONTROL? NO . GENITOURINARY: ANY NEW CHANGE IN BLADDER CONTROL? NO . IS THERE A CHANCE YOU COULD BE ? NO . HEMATOLOGY/LYMPH: DO YOU TAKE ANY BLOOD THINNERS? (FOR EXAMPLE- COUMADIN, PLAVIX, AGGRENOX, PLATEL, PRADAXA, OR XARELTO) NO . WHEN WAS YOUR LAST DOSE? DATE: TIME: . NEUROLOGY: HAVE YOU FALLEN IN THE PAST 6 MONTHS? YES . ANY NEW EXTREMITY NUMBNESS OR WEAKNESS? NO . CARDIOLOGY: DO YOU HAVE A PACEMAKER OR DEFIBRILLATOR? NO . RESPIRATORY: HAVE YOU BEEN SICK IN THE PAST WEEK? NO . FEVER NO . FLU LIKE SYMPTOMS? NO . COUGH NO . INTEGUMENTARY: DO YOU HAVE ANY RASHES OR OPEN SORES? NO . ALLERGIC/IMMUNO: ARE YOU ALLERGIC TO SHELLFISH OR IV DYE? NO . ANY NEW ALLERGIES? NO . PSYCHIATRIC: DO YOU HAVE THOUGHTS OF HURTING YOURSELF OR SOMEONE ELSE? NO . ARE YOU ABUSED, NEGLECTED, OR IN AN UNSAFE ENVIRONMENT? NO . ENDOCRINOLOGY: ARE YOU DIABETIC? NO . OTHER: DO YOU NEED ANY PRESCRIPTIONS? NO . IF YES, PLEASE LIST: ____ . ANY NEW PROBLEMS WITH YOUR MEDICATIONS? NO . WHEN DID YOU LAST EAT? ____ . WHEN DID YOU LAST DRINK? ____ . WHAT DID YOU LAST DRINK? ____ . NAME OF PERSON DRIVING YOU HOME? ____ . DO YOU HAVE ANY OTHER QUESTIONS OR CONCERNS YES, DR GALE FISCHER PUT ME ON A NEW MEDICATION. . VITAL SIGNS WT 184.2 LBS, HT 67 IN, BMI 28.85 INDEX, BP 118/75 MM HG, HR 86 /MIN, RR 16 /MIN, TEMP 98.4 F, OXYGEN SAT % 97%, REVIEWED BY: CM 1120. EXAMINATION GENERAL EXAMINATION: PSYCHALERT , ORIENTED X 3 , AFFECT FLAT. LUNGS:CLEAR TO AUSCULTATION BILATERALLY. HEART:HEART RATE REGULAR. MUSCULOSKELETAL: POINT TENDERNESS OVER LUMBAR SPINOUS PROCESSES .POINT TENDERNESS OVER R>L SIJ. PAIN WITH PALPATION OVER THORACIC AND LUMBAR PARAVERTEBRAL MUSCLES AND SPINOUS PROCESSES. RISES EASILY TO STANDING POSITION. STILL WITH ISSUES WITH BALANCE. GAIT ANTALGIC. JOINTS:JOINT PAIN OVER BOTH KNEES, AND BOTH SHOULDERS. ASSESSMENTS LUMBAR DISC DISPLACEMENT WITHOUT MYELOPATHY - M51.26 (PRIMARY) MYALGIA - M79.1 LUMBAR RADICULOPATHY, CHRONIC - M54.16 TREATMENT LUMBAR DISC DISPLACEMENT WITHOUT MYELOPATHY NOTES: INTRALAMINAR LUMBAR EPIDURAL AT L4-5 CONTINUE WALKING, EXERCISES, TENS UNIT,WHAT IS LUMBAR EPIDURAL INJECTION? MATERIAL WAS PRINTED. PROCEDURE CODES FA211 ESTABILISHED PATIENT FORMERLY [facility] CHARGE G8730 PAIN ASSESS POS TOOL F/U PLAN DOC G8427 DOC MEDS VERIFIED W/PT OR RE DISPOSITION & COMMUNICATION FOLLOW UP REASON: INTRALAMINAR LUMBAR EPIDURAL AT L4-5 ELECTRONICALLY SIGNED BY GRACE FERNANDEZ ON 05/27/2017 AT 11:14 AM EDT DISCLAIMER : THIS IS A VISIT SUMMARY EXTRACTED FROM THE [employer] CHART. IT IS NOT A COPY OF THE [employer] PROGRESS NOTE. YAMILETH
== END | disposition home or self-care (01) ==
LOC: M PAIN 10:20
PROVIDERS: ATTEND Nurse Practitioner Family
DX: G89.29 Other chronic pain (principal); M51.26 Other intervertebral disc displacement, lumbar region; M79.1 Myalgia; M54.16 Radiculopathy, lumbar region; I10 Essential (primary) hypertension; J45.909 Unspecified asthma, uncomplicated; K21.9 Gastro-esophageal reflux disease without esophagitis; M32.19 Other organ or system involvement in systemic lupus erythematosus; Z79.899 Other long term (current) drug therapy; Z88.5 Allergy status to narcotic agent; Z88.8 Allergy status to other drugs, medicaments and biological substances

== ENCOUNTER → 2017-07-10 | Outpatient (CLI) | payer MEDICARE, MEDICAID ==
[~2017-07-10] MED LIST changes: +ISOVUE-M 300 61% 15ML VIAL (Q9967) As Ordered ONE; +LIDOCAINE 1% SDV INJ 30 ML VIAL As Ordered ONE; +diazePAM 5 MG TAB As Ordered ONE; +methylPREDNISolone SUSP 40 MG/ML (DEPO-medrol) VIAL (J1030) As Ordered ONE; +oxyCODONE 5MG TAB As Ordered ONE
--- NOTE | 2017-07-10 15:29 | REP ---
Partial lumbar spine series: Two views . History: Injection procedure for pain. 15 seconds of fluoroscopy time is reported. Findings: A sequence of two fluoroscopically obtained last image hold procedural spot radiographs of the lumbar spine document needle position and contrast injection associated with injection procedure. Signed by Cricket Huff MD 07/10/2017 03:21 P
--- NOTE | 2017-07-11 00:12 | ECWPNPC ---
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 NTERLAMANIAL LE HISTORY OF PRESENT ILLNESS HISTORY OF PRESENT ILLNESS: PAIN THE PATIENT DESCRIBES THE PAIN... FALL RISK SCREENING: SCREENING :NO FALLS IN THE PAST YEAR CURRENT MEDICATIONS TAKING CYCLOBENZAPRINE HCL 5 MG TABLET 1 TABLET ORALLY 1 TABS IN A.M. , 2-3 TABS IN P.M. TAKING ESTRADIOL 0.5 MG TABLET ORALLY DAILY TAKING NEXIUM 40 MG TABLET 1 TAB ORAL DAILY TAKING HYDROCHLOROTHIAZIDE 12.5 37.5 MG TABLET [facility] TRIAMETERENE ORAL DAILY TAKING LISINOPRIL 10 10 MG TABLET ORAL DAILY TAKING PROPRANOLOL HCL 120 MG ORALLY DAILY TAKING AMBIEN 10 MG TABLET ORAL AT BEDTIME TAKING PROAIR HFA 108 (90 BASE) MCG/ACT AEROSOL SOLUTION 2 PUFFS NEEDED INHALATION QID PRN TAKING TRAZODONE HCL 150 MG TABLET 1 TABLET AT BEDTIME NEEDED ORALLY ONCE A DAY TAKING IBUPROFEN 800 MG TABLET 1 TABLET ORALLY THREE TIMES DAILY NEEDED TAKING EXCEDRIN MIGRAINE 250-250-65 MG TABLET 2 TABLETS NEEDED ORALLY FOUR TIMES DAILY NEEDED TAKING STOOL SOFTENER 100 MG CAPSULE 1 CAPSULE NEEDED ORALLY ONCE A DAY TAKING DULOXETINE HCL 30 MG CAPSULE DELAYED RELEASE PARTICLES 1 CAPSULE ORALLY TWICE DAILY TAKING PREDNISONE 5 MGS 1 TAB ORAL THREE TIMES A DAY TAKING TURMERIC 500 MG CAPSULE ORALLY DAILY TAKING POTASSIUM 99 MG TABLET 1 TABLET ORALLY ONCE A DAY TAKING MAGNESIUM 400 MG CAPSULE ORALLY TAKING OXYCODONE-ACETAMINOPHEN 5-300 MG TABLET ORALLY ONCE DAILY NEEDED FOR PAIN TAKING PRAMIPEXOLE DIHYDROCHLORIDE 0.125 MG TABLET 1-2 TABLET BEFORE BEDTIME ORALLY ONCE A DAY 3-4 HR BEFORE BEDTIME NOT-TAKING VALIUM 5 MG TABLET 1 TABLET NEEDED ORALLY TWICE A DAY NOT-TAKING CATHETER INSERTION TRAY - KIT 16 F CATHETER INTRAVESICALLY Q 4WEEKS OR PRN NOT-TAKING LIDOCAINE HCL JELLY DETENTION 2 % JELLY 1 APPLICATION TO AFFECTED AREA NEEDED INTRAVESICALLY PRIOR TO CATHETER INSERTION PAST MEDICAL HISTORY HYPERTENSION ASTHMA REFLUX DENGERATIVE DISC DISEASE FIBROMYALGIA RADICULOPATHY LUPUS LSE ALLERGIES MORPHINE SULFATE: ANAPHYLAXIS: ALLERGY BACLOFEN: HIVES: ALLERGY SOCIAL HISTORY GENERAL: TOBACCO USE ARE YOU A:FORMER SMOKER FORMER SMOKER.QUIT X 1MONTH ALCOHOL SCREENING POINTS2 INTERPRETATIONNEGATIVE RECREATIONAL DRUG USE DRUG USE?YES CAFFEINE CAFFEINE USE?YES 1 CUP OF COFFEE DAILY,1 CUP OF TEA DAILY OCCUPATION: DISABLED. DIET: REGULAR. EXERCISE: WALKS. MARITAL STATUS: SINGLE. OTHERS AT HOME: NONE. PETS: DOG. YAZIDISM [id number] SHINTO LANGUAGE LANGUAGES SPOKEN:[place]IZ[place] OF [place] EDUCATION LEVEL OF EDUCATION:NOT FINISHED COLLEGE LEARNING BARRIERS / SPECIAL NEEDS HEARING IMPAIRED?NO VISION IMPAIRED?YES :CORRECTIVE LENSES COGNITIVELY IMPAIRED?NO READINESS TO LEARN?YES LEARNING PREFERENCES?NO LEARNING CAPABILITIES PRESENT?YES EMOTIONAL BARRIERS?NO SPECIAL DEVICES?YES :CANE ADJUNCT SOCIOLOGY PROFESSOR NEEDED?NO NEW PATIENT PAIN DIARY TODAY'S VISIT NOTES, FROM 0-10, WHAT LEVEL IS YOUR PAIN TODAY? 0. PAIN CLINIC PFS, CLERGY, PUBLIC HEALTH REFERRALS HAS THE PATIENT BEEN EDUCATED REGARDING HIS/HER PLAN OF CARE?YES HAS THE PATIENT BEEN EDUCATED REGARDING PAIN, THE RISK FOR PAIN, THE IMPORTANCE OF EFFECTIVE PAIN MANAGEMENT, AND THE PAIN ASSESSMENT PROCESS?YES ADVANCE DIRECTIVES HEALTH CARE PROXY?NO INFORMATION OFFERED AND DECLINED. WOULD YOU LIKE MORE INFORMATION?NO DO YOU HAVE A DNR?NO WOULD YOU LIKE MORE INFORMATION?NO LIVING WILL?NO WOULD YOU LIKE MORE INFORMATION?NO POWER OF INSULATOR TECHNICIAN?NO WOULD YOU LIKE MORE INFORMATION?NO DOMESTIC VIOLENCE HAS THE PATIENT EVER BEEN IN A SITUATION INVOLVING DOMESTIC VIOLENCE?YES DO YOU FEEL SAFE IN YOUR ENVIRONMENT?YES REVIEW OF SYSTEMS REVIEWED BY: PROVIDER: . CONSTITUTIONAL: ANY CHANGE IN YOUR MEDICAL CONDITION? NO . CHILLS NO . FEVER NO . INFECTION: DO YOU HAVE NEW INFECTIONS? NO . DO YOU HAVE HISTORY OF MRSA? NO . MUSCULOSKELETAL: ANY NEW PATTERNS OF PAIN OR NUMBNESS? NO . GASTROENTEROLOGY: ANY NEW CHANGE IN BOWEL CONTROL? NO . GENITOURINARY: ANY NEW CHANGE IN BLADDER CONTROL? NO . IS THERE A CHANCE YOU COULD BE ? NO . HEMATOLOGY/LYMPH: DO YOU TAKE ANY BLOOD THINNERS? (FOR EXAMPLE- COUMADIN, PLAVIX, AGGRENOX, PLATEL, PRADAXA, OR XARELTO) NO . WHEN WAS YOUR LAST DOSE? DATE: TIME: . NEUROLOGY: HAVE YOU FALLEN IN THE PAST 6 MONTHS? NO . ANY NEW EXTREMITY NUMBNESS OR WEAKNESS? NO . CARDIOLOGY: DO YOU HAVE A PACEMAKER OR DEFIBRILLATOR? NO . RESPIRATORY: HAVE YOU BEEN SICK IN THE PAST WEEK? NO . FEVER NO . FLU LIKE SYMPTOMS? NO . COUGH NO . INTEGUMENTARY: DO YOU HAVE ANY RASHES OR OPEN SORES? NO . ALLERGIC/IMMUNO: ARE YOU ALLERGIC TO SHELLFISH OR IV DYE? NO . ANY NEW ALLERGIES? NO . PSYCHIATRIC: DO YOU HAVE THOUGHTS OF HURTING YOURSELF OR SOMEONE ELSE? NO . ARE YOU ABUSED, NEGLECTED, OR IN AN UNSAFE ENVIRONMENT? NO . ENDOCRINOLOGY: ARE YOU DIABETIC? NO . OTHER: DO YOU NEED ANY PRESCRIPTIONS? NO . IF YES, PLEASE LIST: ____ . ANY NEW PROBLEMS WITH YOUR MEDICATIONS? NO . WHEN DID YOU LAST EAT? 07/09/171929 . WHEN DID YOU LAST DRINK? 07/10/17329 . WHAT DID YOU LAST DRINK? WATER . NAME OF PERSON DRIVING YOU HOME? [place] . DO YOU HAVE ANY OTHER QUESTIONS OR CONCERNS NO . VITAL SIGNS WT 180 LBS, HT 67 IN, BMI 28.19 INDEX, BP 129/72 MM HG, HR 102 /MIN, RR 16 /MIN, TEMP 98.2 F, OXYGEN SAT % 94%, NA INITIALS AW 1134, REVIEWED BY: AD. ASSESSMENTS INTERVERTEBRAL DISC DISORDER WITH RADICULOPATHY OF LUMBOSACRAL REGION - M51.17 (PRIMARY) PROCEDURES PRE PROCEDURE DIAGNOSIS LUMBOSACRAL DISC DISORDER WITH RADICULOPATHY POST PROCEDURE DIAGNOSIS LUMBOSACRAL DISC DISORDER WITH RADICULOPATHY PROCEDURE LUMBAR EPIDURAL STEROID INJECTION UNDER FLUOROSCOPIC GUIDANCE SURGEON DR. CONNIE KAUR GLORY HOLE TENDER NONE ANESTHESIA LOCAL PRE PROCEDURE NOTE THE PATIENT HAS A HISTORY OF CHRONIC LOW BACK PAIN. I EVALUATE THE PATIENT AND REVIEWED THE CHART. I WENT OVER THE RISKS, ALTERNATIVES, AND BENEFITS ASSOCIATED WITH THIS PROCEDURE. THE PATIENT WOULD LIKE TO PROCEED AND GIVE CONSENT TO PERFORMED THE PROCEDURE. THE PATIENT DENIES UNEXPLAINABLE WEIGHT LOSS, FEVER, CHILLS, OR NEW CHANGES IN URINARY OR BOWEL CONTROL. DESCRIPTION OF PROCEDURE THE PATIENT WAS BROUGHT TO THE PROCEDURE ROOM AND PLACED IN THE PRONE POSITION. THE LUMBOSACRAL AREA WAS CLEANED WITH BETADINE SOLUTION AND DRAPED ASEPTICALLY. THE PROCEDURE WAS DONE UNDER STERILE CONDITIONS. I CHECKED LATERALITY AND THE LEVEL WHERE THE PROCEDURE WAS GOING TO BE PERFORMED WITH THE PATIENT AND THE SUPPORTING STAFF AT THE MOMENT OF THE TIME OUT IN THE PROCEDURE ROOM. UNDER FLUOROSCOPIC GUIDANCE, THE TARGET POINT WAS SELECTED AT THE INTERLAMINAR LEVEL OF L5-S1. LIDOCAINE WAS USED TO NUMB THE SKIN AND THE SUBCUTANEOUS TISSUE BELOW IT. EPIDURAL TUOHY NEEDLE, 17-GAUGE, WAS ADVANCED UNDER FLUOROSCOPIC GUIDANCE AND FOLLOWING PATIENT FEEDBACK UNTIL THE EPIDURAL SPACE WAS REACHED, 7 CM DEEP INTO THE SKIN BY THE LOSS OF RESISTANCE TECHNIQUE. ISOVUE M DYE 30%, 0.25 ML, WAS INJECTED SHOWING ADEQUATE SPREAD OF THE DYE. THEN, A SOLUTION OF 3 ML OF NORMAL SALINE WITH DEPO-MEDROL 60 MG WAS INJECTED SLOWLY FOLLOWING PATIENT FEEDBACK. THERE WAS NO EVIDENCE OF BLOOD, PARESTHESIA OR CEREBROSPINAL FLUID DURING THE PROCEDURE. THE PATIENT WAS SENT TO THE RECOVERY ROOM. THE PATIENT WAS MOVING THE EXTREMITIES AND DOING WELL. THERE WAS NO COMPLICATION DURING THE PROCEDURE. FLUOROSCOPY TIME WAS 15 SECONDS. POST PROCEDURE NOTE THE PATIENT WILL BE SEEN IN A FOLLOW UP IN THE NEXT FEW WEEKS. INSTRUCTIONS WERE GIVEN, QUESTIONS WERE ANSWERED, AND THE PATIENT EXPRESSED UNDERSTANDING AND AGREES WITH THE PLAN. I, TRISHA GUPTA, DOCUMENTED THE ABOVE INFORMATION ACTING A SCRIBE FOR DR. KAUR. I HAVE REVIEWED THE ABOVE DOCUMENT, WRITTEN BY TRISHA ZAMAN AND I VERIFY THAT IT IS ACCURATE DIAGNOSTIC IMAGING [facility] FLUORO GUIDE SPINE INJECTION (PAIN)[id number] PROCEDURE CODES 13941 LUMBAR/SACRAL W/ IMAGING 6045F RADXPS IN END [id number] PXD DISPOSITION & COMMUNICATION FOLLOW UP 3 WEEKS ELECTRONICALLY SIGNED BY CONNIE KAUR MD ON 07/10/2017 AT 09:07 PM EDT DISCLAIMER : THIS IS A VISIT SUMMARY EXTRACTED FROM THE [employer] CHART. IT IS NOT A COPY OF THE [employer] PROGRESS NOTE. MTDD
== END ==
LOC: M PAIN 11:15
PROVIDERS: ATTEND Anesthesiology
DX: G89.29 Other chronic pain (principal); M51.17 Intervertebral disc disorders with radiculopathy, lumbosacral region; I10 Essential (primary) hypertension; K21.9 Gastro-esophageal reflux disease without esophagitis; J45.909 Unspecified asthma, uncomplicated; M79.7 Fibromyalgia; Z87.891 Personal history of nicotine dependence; Z79.891 Long term (current) use of opiate analgesic; Z79.899 Other long term (current) drug therapy; Z88.5 Allergy status to narcotic agent; Z88.1 Allergy status to other antibiotic agents
CPT/HCPCS: 62323; J1030; Q9967

== ENCOUNTER → 2017-09-18 | Outpatient (CLI) | payer MEDICARE, MEDICAID ==
[~2017-09-18] MED LIST changes: -ISOVUE-M 300 61% 15ML VIAL (Q9967) As Ordered ONE; -LIDOCAINE 1% SDV INJ 30 ML VIAL As Ordered ONE; -diazePAM 5 MG TAB As Ordered ONE; -methylPREDNISolone SUSP 40 MG/ML (DEPO-medrol) VIAL (J1030) As Ordered ONE; -oxyCODONE 5MG TAB As Ordered ONE
--- NOTE | 2017-10-08 00:05 | ECWPNPC ---
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 POST PROC HISTORY OF PRESENT ILLNESS HISTORY OF PRESENT ILLNESS: PAIN THE PATIENT DESCRIBES THE PAIN... FALL RISK SCREENING: SCREENING :NO FALLS IN THE PAST YEAR TODAY'S VISIT: NOTES: RATES PAIN LEVEL TODAY 05/31. IS S/P LESB COMPLETED ON 07/10/17 WAS IN THE HOSPITAL AFTER THE FLU SHOT (2 WEEEKS LATER) FOR RESP DISTRESS. HAD RELIEF OF 55-60% IN THE PAIN GOING DOWN THE RIGHT LEG BUT DID STILL HAVE NUMBNESS. THE THROBBING SENSATION WAS RELIEVED. TODAYS PAIN IS LOCATED IN UPPER BACK AND ACROSS THE SHOULDER BLADES. . CURRENT MEDICATIONS TAKING CYCLOBENZAPRINE HCL 5 MG TABLET 1 TABLET ORALLY 1 TABS IN A.M. , 2-3 TABS IN P.M. TAKING ESTRADIOL 0.5 MG TABLET ORALLY DAILY TAKING NEXIUM 40 MG TABLET 1 TAB ORAL DAILY TAKING HYDROCHLOROTHIAZIDE 12.5 37.5 MG TABLET [facility] TRIAMETERENE ORAL DAILY TAKING LISINOPRIL 10 10 MG TABLET ORAL DAILY TAKING PROPRANOLOL HCL 120 MG ORALLY DAILY TAKING AMBIEN 10 MG TABLET ORAL AT BEDTIME TAKING PROAIR HFA 108 (90 BASE) MCG/ACT AEROSOL SOLUTION 2 PUFFS NEEDED INHALATION QID PRN TAKING TRAZODONE HCL 150 MG TABLET 1 TABLET AT BEDTIME NEEDED ORALLY ONCE A DAY TAKING IBUPROFEN 800 MG TABLET 1 TABLET ORALLY THREE TIMES DAILY NEEDED TAKING EXCEDRIN MIGRAINE 250-250-65 MG TABLET 2 TABLETS NEEDED ORALLY FOUR TIMES DAILY NEEDED TAKING STOOL SOFTENER 100 MG CAPSULE 1 CAPSULE NEEDED ORALLY ONCE A DAY TAKING DULOXETINE HCL 30 MG CAPSULE DELAYED RELEASE PARTICLES 1 CAPSULE ORALLY TWICE DAILY TAKING PREDNISONE 5 MG 2 TABS ORAL AT NIGHT TAKING TURMERIC 500 MG CAPSULE ORALLY DAILY TAKING POTASSIUM 99 MG TABLET 1 TABLET ORALLY ONCE A DAY TAKING MAGNESIUM 400 MG CAPSULE ORALLY DAILY TAKING OXYCODONE-ACETAMINOPHEN 5-300 MG TABLET ORALLY ONCE DAILY NEEDED FOR PAIN TAKING PRAMIPEXOLE DIHYDROCHLORIDE 0.125 MG TABLET 1-2 TABLET BEFORE BEDTIME ORALLY ONCE A DAY 3-4 HR BEFORE BEDTIME TAKING PRAZOSIN HCL 2 MG CAPSULE 1 CAPSULE AT BEDTIME ORALLY ONCE A DAY TAKING PROZAC 20 MG CAPSULE 1 TAB ORALLY TWICE A DAY TAKING LAMICTAL 25 MG TABLET 1 TAB ORALLY TWICE A DAY TAKING ALBUTEROL SULFATE (2.5 MG/3ML) 0.083% NEBULIZATION SOLUTION INHALATION TWICE A DAY NEEDED NOT-TAKING VALIUM 5 MG TABLET 1 TABLET NEEDED ORALLY TWICE A DAY NOT-TAKING CATHETER INSERTION TRAY - KIT 16 F CATHETER INTRAVESICALLY Q 4WEEKS OR PRN NOT-TAKING LIDOCAINE HCL JELLY SNF 2 % JELLY 1 APPLICATION TO AFFECTED AREA NEEDED INTRAVESICALLY PRIOR TO CATHETER INSERTION MEDICATION LIST REVIEWED AND RECONCILED WITH THE PATIENT PAST MEDICAL HISTORY HYPERTENSION ASTHMA REFLUX DENGERATIVE DISC DISEASE FIBROMYALGIA RADICULOPATHY LUPUS LSE ALLERGIES MORPHINE SULFATE: ANAPHYLAXIS: ALLERGY BACLOFEN: HIVES: ALLERGY SOCIAL HISTORY GENERAL: TOBACCO USE ARE YOU A:FORMER SMOKER FORMER SMOKER.QUIT X 1MONTH ALCOHOL SCREENING DID YOU HAVE A DRINK CONTAINING ALCOHOL IN THE PAST YEAR?YES POINTS2 INTERPRETATIONNEGATIVE HOW OFTEN DID YOU HAVE A DRINK CONTAINING ALCOHOL IN THE PAST YEAR?TWO TO FOUR TIMES A MONTH (2 POINTS) HOW MANY DRINKS DID YOU HAVE ON A TYPICAL DAY WHEN YOU WERE DRINKING IN THE PAST YEAR?1 OR 2 (0 POINTS) HOW OFTEN DID YOU HAVE SIX OR MORE DRINKS ON ONE OCCASION IN THE PAST YEAR?NEVER (0 POINTS) RECREATIONAL DRUG USE DRUG USE?YES CAFFEINE CAFFEINE USE?YES 1 CUP OF COFFEE DAILY,1 CUP OF TEA DAILY OCCUPATION: DISABLED. DIET: REGULAR. EXERCISE: WALKS. MARITAL STATUS: SINGLE. OTHERS AT HOME: NONE. PETS: DOG. ADVENTIST [id number] RELIGIOUS LANGUAGE LANGUAGES SPOKEN:[place] EDUCATION LEVEL OF EDUCATION:NOT FINISHED COLLEGE LEARNING BARRIERS / SPECIAL NEEDS CHANGE FROM LAST VISIT?NO BARRIERS TO LEARNING?NO HEARING IMPAIRED?NO VISION IMPAIRED?YES :CORRECTIVE LENSES COGNITIVELY IMPAIRED?NO READINESS TO LEARN?YES LEARNING PREFERENCES?NO LEARNING CAPABILITIES PRESENT?YES EMOTIONAL BARRIERS?NO SPECIAL DEVICES?YES :CANE PACKER NEEDED?NO NEW PATIENT PAIN DIARY TODAY'S VISIT NOTES, FROM 0-10, WHAT LEVEL IS YOUR PAIN TODAY? 0. PAIN CLINIC PFS, CLERGY, PUBLIC HEALTH REFERRALS PFS REFERRAL NEEDED?NO CLERGY REFERRAL NEEDED?NO PUBLIC HEALTH REFERRAL NEEDED?NO HAS THE PATIENT BEEN EDUCATED REGARDING HIS/HER PLAN OF CARE?YES HAS THE PATIENT BEEN EDUCATED REGARDING PAIN, THE RISK FOR PAIN, THE IMPORTANCE OF EFFECTIVE PAIN MANAGEMENT, AND THE PAIN ASSESSMENT PROCESS?YES [facility]VANCE DIRECTIVES HEALTH CARE PROXY?NO INFORMATION OFFERED AND DECLINED. WOULD YOU LIKE MORE INFORMATION?NO DO YOU HAVE A DNR?NO WOULD YOU LIKE MORE INFORMATION?NO LIVING WILL?NO WOULD YOU LIKE MORE INFORMATION?NO POWER OF DINKEY ENGINE OPERATOR?NO WOULD YOU LIKE MORE INFORMATION?NO DOMESTIC VIOLENCE HAS THE PATIENT EVER BEEN IN A SITUATION INVOLVING DOMESTIC VIOLENCE?YES DO YOU FEEL SAFE IN YOUR ENVIRONMENT?YES REVIEW OF SYSTEMS REVIEWED BY: PROVIDER: . CONSTITUTIONAL: ANY CHANGE IN YOUR MEDICAL CONDITION? NO . CHILLS NO . FEVER NO . INFECTION: DO YOU HAVE NEW INFECTIONS? NO . DO YOU HAVE HISTORY OF MRSA? NO . MUSCULOSKELETAL: ANY NEW PATTERNS OF PAIN OR NUMBNESS? YES, PAIN BOTH SIDES NECK AND LOW BACK . GASTROENTEROLOGY: ANY NEW CHANGE IN BOWEL CONTROL? NO . GENITOURINARY: ANY NEW CHANGE IN BLADDER CONTROL? NO . IS THERE A CHANCE YOU COULD BE ? NO . HEMATOLOGY/LYMPH: DO YOU TAKE ANY BLOOD THINNERS? (FOR EXAMPLE- COUMADIN, PLAVIX, AGGRENOX, PLATEL, PRADAXA, OR XARELTO) NO . WHEN WAS YOUR LAST DOSE? DATE: TIME: . NEUROLOGY: HAVE YOU FALLEN IN THE PAST 6 MONTHS? NO . ANY NEW EXTREMITY NUMBNESS OR WEAKNESS? NO . CARDIOLOGY: DO YOU HAVE A PACEMAKER OR DEFIBRILLATOR? NO . RESPIRATORY: HAVE YOU BEEN SICK IN THE PAST WEEK? YES, SAW DR. GOTTLIEB 09/17/17 FOR FOLLOW UP FROM HAVING THE FLU . FEVER NO . FLU LIKE SYMPTOMS? NO . COUGH NO . INTEGUMENTARY: DO YOU HAVE ANY RASHES OR OPEN SORES? NO . ALLERGIC/IMMUNO: ARE YOU ALLERGIC TO SHELLFISH OR IV DYE? NO . ANY NEW ALLERGIES? NO . PSYCHIATRIC: DO YOU HAVE THOUGHTS OF HURTING YOURSELF OR SOMEONE ELSE? NO . ARE YOU ABUSED, NEGLECTED, OR IN AN UNSAFE ENVIRONMENT? NO . ENDOCRINOLOGY: ARE YOU DIABETIC? NO . OTHER: DO YOU NEED ANY PRESCRIPTIONS? NO . IF YES, PLEASE LIST: ____ . ANY NEW PROBLEMS WITH YOUR MEDICATIONS? NO . WHEN DID YOU LAST EAT? ____ . WHEN DID YOU LAST DRINK? ____ . WHAT DID YOU LAST DRINK? ____ . NAME OF PERSON DRIVING YOU HOME? ____ . DO YOU HAVE ANY OTHER QUESTIONS OR CONCERNS NO . VITAL SIGNS WT 188 LBS, HT 67 IN, BMI 29.44 INDEX, BP 103/58 MM HG, HR 108 /MIN, RR 16 /MIN, TEMP 96.8 F, OXYGEN SAT % 95%, SAFE IN ENV? (Y/N) YES, NA INITIALS CA 10:03, REVIEWED BY: RICK. EXAMINATION GENERAL EXAMINATION: PSYCHALERT , ORIENTED X 3 , AFFECT FLAT. LUNGS:CLEAR TO AUSCULTATION BILATERALLY. HEART:HEART RATE REGULAR. MUSCULOSKELETAL: POINT TENDERNESS OVER LUMBAR SPINOUS PROCESSES .POINT TENDERNESS OVER R>L SIJ. PAIN WITH PALPATION OVER THORACIC AND LUMBAR PARAVERTEBRAL MUSCLES AND SPINOUS PROCESSES. RISES EASILY TO STANDING POSITION. STILL WITH ISSUES WITH BALANCE. GAIT ANTALGIC. JOINTS:JOINT PAIN OVER BOTH SHOULDERS AT THE AC JOINT. LIMITED ROM. ASSESSMENTS LUMBAR DISC DISPLACEMENT WITHOUT MYELOPATHY - M51.26 (PRIMARY) MYALGIA - M79.1 LUMBAR RADICULOPATHY, CHRONIC - M54.16 TREATMENT LUMBAR DISC DISPLACEMENT WITHOUT MYELOPATHY TRIGGER POINT 3 + EDELMIRA GUERRERO 09/18/2017 10:36:50 AM > MID BACK AND SHOULDER BLADES NOTES: SEE ABOUT A TENS UNIT FROM THE PHARMACY. PREVENTIVE MEDICINE PAIN CLINIC TEACHING: PROCEDURE TEACHING PRE-PROCEDURE TEACHING DONE AND PATIENT VERBALIZES UNDERSTANDING. PROCEDURE CODES FA211 ESTABILISHED PATIENT [facility] FACILITY CHARGE [id number] PAIN ASSESS POS TOOL F/U PLAN DOC G8427 DOC MEDS VERIFIED W/PT OR RE DISPOSITION & COMMUNICATION FOLLOW UP AFTER INJECTION - DO INJECTIONS September (REASON: CHECK AUTH FOR TPI) ELECTRONICALLY SIGNED BY GRACE FERNANDEZ ON 10/07/2017 AT 04:03 PM EST DISCLAIMER : THIS IS A VISIT SUMMARY EXTRACTED FROM THE [facility] CHART. IT IS NOT A COPY OF THE [facility] PROGRESS NOTE. MTDD
== END ==
LOC: M PAIN 10:00
PROVIDERS: ATTEND Nurse Practitioner Family
DX: M51.26 Other intervertebral disc displacement, lumbar region (principal); M54.16 Radiculopathy, lumbar region; M79.1 Myalgia; I10 Essential (primary) hypertension; J45.909 Unspecified asthma, uncomplicated; M32.9 Systemic lupus erythematosus, unspecified; Z88.1 Allergy status to other antibiotic agents; Z88.5 Allergy status to narcotic agent; Z79.1 Long term (current) use of non-steroidal anti-inflammatories (NSAID); Z79.52 Long term (current) use of systemic steroids; Z79.899 Other long term (current) drug therapy; Z87.891 Personal history of nicotine dependence

== ENCOUNTER → 2017-11-30 | Outpatient (CLI) | payer MEDICARE, MEDICAID ==
[~2017-11-30] MED LIST changes: -/DULO30CA; -/DULO30CA OR; -/ESOM40CA; -/ESOM40CA OR; -/ESOM40CA PO; -/PROM25SU; -ACET500C OR; -ALBU17IN INH; -ALBU17IN2 INH; -AMBI10TA; -AMBI10TA OR; -AMOX500C OR; -AMRIX; -AMRIX PO; -ARTHROTEC PO; -ASCO25TA PO; -ATEN25TA; -ATEN25TA OR; -BABY81CH; -BACT800T5 PO; -BLACK COHASH; +BUPIVACAINE HCL 0.25% 10 ML VIAL As Ordered; +BUPIVACAINE HCL 0.25% 30 ML VIAL As Ordered; -CALC600T7 PO; -CALCCHW12 OR; -CYCL10TA PO; -CYCL5TAB PO; -DICL75TA PO; -DULO1CAP2 PO; -DULO1CAP3 PO; -ESTR1TAB PO; -ESTR25TA PO; -ESTR625TA PO; -EXCETAB OR; -EXCETAB80 PO; -FISHCAP5 PO; -FLECTOR1.3; -FLECTOR1.3 EXT; -FLEXERIL; -FLEXERIL OR; -FLEXERIL PO; -IBUP80TA PO; -IMIT6INJ IJ; -LIDO5DIS; -LISI-542 PO; -LISI10TA4 PO; -LOPERAMIDE PO; -LOVA1CAP17 PO; -MELOPOW; -MOBIC; -MULTCAP PO; -MULTIVIT; -MULTIVIT OR; -MVI PO; -NARA2.5T PO; -NEUR100C; -NEUR100C PO; -NEXI40CA PO; -NICO7DIS4 TD; -NORT25CA2 OR; -OMEP20TA7 OR; -ONDA4TAB6 PO; -OXYC1TAB23 PO; -PERC5TAB8; -PERC5TAB8 OR; -PRED5TA PO; -PREM0.45 PO; -PRIL40CA PO; -PROC25SU2 PO; -PROP120C PO; -PROP40TA OR; -PYRI1TAB5 PO; -RIZA10TA4 PO; -TIZA4TAB OR; -TRAZADONE PO; -TRAZO50TA PO; -TRIA37.5 PO; +TRIAMCINOLONE ACETONIDE SUSP 40 MG/ML VIAL (J3301) As Ordered; -TYLE325T5 PO; -VALI5TAB PO; -VOLT1GEL PO; -ZANA4CAP OR; -ZOFR8TAB PO; -ZONI25CA2 PO; -ZONI50CA3 PO; -ZONISAMIDE PO; -[UNRECOGNIZED DRUG - OTHER]; -[UNRECOGNIZED DRUG - OTHER] PO; -[UNRECOGNIZED DRUG - OTHER] PO; -[UNRECOGNIZED DRUG - OTHER] PO; +diazePAM 5 MG TAB As Ordered; +oxyCODONE 5MG TAB As Ordered
== END ==
LOC: M PAIN 14:30
DX: G89.29 Other chronic pain (principal); M54.6 Pain in thoracic spine; M54.5 Low back pain; M79.1 Myalgia; I10 Essential (primary) hypertension; J45.909 Unspecified asthma, uncomplicated; K21.9 Gastro-esophageal reflux disease without esophagitis; M32.9 Systemic lupus erythematosus, unspecified; M35.3 Polymyalgia rheumatica; Z79.899 Other long term (current) drug therapy; Z88.5 Allergy status to narcotic agent; Z88.8 Allergy status to other drugs, medicaments and biological substances; Z87.891 Personal history of nicotine dependence
CPT/HCPCS: J3301

== ENCOUNTER → 2017-12-24 | Outpatient (CLI) | payer MEDICARE, MEDICAID | LOC: M PAIN 10:15 | DX: M51.26 Other intervertebral disc displacement, lumbar region (principal); M79.1 Myalgia; M54.16 Radiculopathy, lumbar region; I10 Essential (primary) hypertension; J45.909 Unspecified asthma, uncomplicated; K21.9 Gastro-esophageal reflux disease without esophagitis; M32.9 Systemic lupus erythematosus, unspecified; Z79.891 Long term (current) use of opiate analgesic; Z79.899 Other long term (current) drug therapy; Z88.8 Allergy status to other drugs, medicaments and biological substances; Z87.891 Personal history of nicotine dependence | CPT/HCPCS: G0463 ==

== ENCOUNTER → 2018-01-10 | Outpatient (CLI) | payer MEDICARE, MEDICAID | LOC: M PAIN 11:30 | DX: G89.29 Other chronic pain (principal); M79.1 Myalgia; I10 Essential (primary) hypertension; K21.9 Gastro-esophageal reflux disease without esophagitis; M32.9 Systemic lupus erythematosus, unspecified; Z79.891 Long term (current) use of opiate analgesic; Z79.899 Other long term (current) drug therapy; Z87.891 Personal history of nicotine dependence; Z88.8 Allergy status to other drugs, medicaments and biological substances | CPT/HCPCS: J3301 ==

== ENCOUNTER → 2018-05-13 | Outpatient (CLI) | payer MEDICARE, MEDICAID | LOC: M PAIN 10:45 | DX: M79.1 Myalgia (principal); I10 Essential (primary) hypertension; J45.909 Unspecified asthma, uncomplicated; M32.19 Other organ or system involvement in systemic lupus erythematosus; M35.3 Polymyalgia rheumatica; Z79.899 Other long term (current) drug therapy; Z88.5 Allergy status to narcotic agent; Z88.8 Allergy status to other drugs, medicaments and biological substances | CPT/HCPCS: G0463 ==

== ENCOUNTER → 2018-07-10 | Outpatient (CLI) | payer MEDICARE, MEDICAID | LOC: M PAIN 10:00 | DX: G89.29 Other chronic pain (principal); M79.1 Myalgia; I10 Essential (primary) hypertension; M32.9 Systemic lupus erythematosus, unspecified; J45.909 Unspecified asthma, uncomplicated; Z79.891 Long term (current) use of opiate analgesic; Z79.899 Other long term (current) drug therapy; Z88.5 Allergy status to narcotic agent; Z88.8 Allergy status to other drugs, medicaments and biological substances; Z87.891 Personal history of nicotine dependence | CPT/HCPCS: J3301 ==

== ENCOUNTER → 2018-08-02 | Outpatient (CLI) | payer MEDICARE, MEDICAID | LOC: M PAIN 10:00 | DX: M51.26 Other intervertebral disc displacement, lumbar region (principal); M79.7 Fibromyalgia; M54.16 Radiculopathy, lumbar region; I10 Essential (primary) hypertension; J45.909 Unspecified asthma, uncomplicated; K21.9 Gastro-esophageal reflux disease without esophagitis; M32.9 Systemic lupus erythematosus, unspecified; M35.3 Polymyalgia rheumatica; Z79.899 Other long term (current) drug therapy; Z88.5 Allergy status to narcotic agent; Z88.8 Allergy status to other drugs, medicaments and biological substances; Z87.891 Personal history of nicotine dependence | CPT/HCPCS: G0463 ==

== ENCOUNTER → 2018-08-27 | Outpatient (CLI) | payer MEDICARE, MEDICAID ==
[~2018-08-27] MED LIST changes: -BUPIVACAINE HCL 0.25% 10 ML VIAL As Ordered; -BUPIVACAINE HCL 0.25% 30 ML VIAL As Ordered; +ISOVUE-M 300 61% 15ML VIAL (Q9967) As Ordered; +LIDOCAINE 1% SDV INJ 30 ML VIAL As Ordered; -TRIAMCINOLONE ACETONIDE SUSP 40 MG/ML VIAL (J3301) As Ordered; +methylPREDNISolone SUSP 40 MG/ML (DEPO-medrol) VIAL (J1030) As Ordered
== END ==
LOC: M PAIN 10:00
DX: G89.29 Other chronic pain (principal); M51.16 Intervertebral disc disorders with radiculopathy, lumbar region; I10 Essential (primary) hypertension; J45.909 Unspecified asthma, uncomplicated; M79.7 Fibromyalgia; M35.3 Polymyalgia rheumatica; Z79.52 Long term (current) use of systemic steroids; Z79.899 Other long term (current) drug therapy; Z88.5 Allergy status to narcotic agent; Z88.8 Allergy status to other drugs, medicaments and biological substances; Z87.39 Personal history of other diseases of the musculoskeletal system and connective tissue; Z87.891 Personal history of nicotine dependence; Z86.59 Personal history of other mental and behavioral disorders
CPT/HCPCS: J1030

== ENCOUNTER → 2019-02-25 | Outpatient (CLI) | payer MEDICARE, MEDICAID ==
[~2019-02-25] MED LIST changes: +/PROM25SU; +ACET500C OR; +ALBU17IN INH; +ALBU17IN2 INH; +AMBI10TA; +AMBI10TA OR; +AMOX500C OR; +AMRIX; +AMRIX PO; +ARTHROTEC PO; +ATEN25TA; +ATEN25TA OR; +BABY81CH; +BACT800T5 PO; +BLACK COHASH; +CALC600T7 PO; +CALCCHW12 OR; +CYCL10TA PO; +CYCL5TAB PO; +CYMB1CAP5; +CYMB1CAP5 OR; +DICL75TA PO; +DULO1CAP2 PO; +DULO1CAP3 PO; +ESTR1TAB PO; +ESTR25TA PO; +ESTR625TA PO; +EXCETAB OR; +EXCETAB80 PO; +FISHCAP5 PO; +FLECTOR1.3; +FLECTOR1.3 EXT; +FLEXERIL; +FLEXERIL OR; +FLEXERIL PO; +IBUP80TA PO; +IMIT6INJ IJ; -ISOVUE-M 300 61% 15ML VIAL (Q9967) As Ordered; +LIDO5DIS; -LIDOCAINE 1% SDV INJ 30 ML VIAL As Ordered; +LISI-542 PO; +LISI10TA4 PO; +LOPERAMIDE PO; +LOVA1CAP17 PO; +MELOPOW; +MOBIC; +MULTCAP PO; +MULTIVIT; +MULTIVIT OR; +MVI PO; +NARA2.5T PO; +NEUR100C; +NEUR100C PO; +NEXI1CAP3; +NEXI1CAP3 OR; +NEXI1CAP3 PO; +NEXI40CA PO; +NICO7DIS4 TD; +NORT25CA2 OR; +OMEP20TA7 OR; +ONDA4TAB6 PO; +OXYC1TAB23 PO; +PERC5TAB8; +PERC5TAB8 OR; +PRED5TA PO; +PREM0.45 PO; +PRIL40CA PO; +PROC25SU2 PO; +PROP120C PO; +PROP40TA OR; +PYRI1TAB5 PO; +RIZA10TA4 PO; +TIZA4TAB OR; +TRAZADONE PO; +TRAZO50TA PO; +TRIA37.5 PO; +TYLE325T5 PO; +VALI5TAB PO; +VITA1TAB23 PO; +VOLT1GEL PO; +ZANA4CAP OR; +ZOFR8TAB24 PO; +ZONI25CA2 PO; +ZONI50CA3 PO; +ZONISAMIDE PO; +[UNRECOGNIZED DRUG - OTHER]; +[UNRECOGNIZED DRUG - OTHER] PO; +[UNRECOGNIZED DRUG - OTHER] PO; +[UNRECOGNIZED DRUG - OTHER] PO; -diazePAM 5 MG TAB As Ordered; -methylPREDNISolone SUSP 40 MG/ML (DEPO-medrol) VIAL (J1030) As Ordered; -oxyCODONE 5MG TAB As Ordered
--- NOTE | 2019-03-19 01:26 | ECWPNPC ---
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 PT, BACK-CHECK INSURANCE- NEEDS TO SEE SADNY IMMEDIATELY HISTORY OF PRESENT ILLNESS HISTORY OF PRESENT ILLNESS: HERE FOR F/U OF CHRONIC LOW BACK PAIN.RATING PAIN VAS 9/10.HAD LUMBAR SURGERY 12/2018.RECENT DIAGNOSIS OF LUPUS AND FIBROMYALGIA.LBP IS DESCRIBED CONTINUOUS AND ACHING.HAS RESPONDED WELL TO TPI IN PAST. PAIN THE PATIENT DESCRIBES THE PAIN... FALL RISK SCREENING: SCREENING :NO FALLS REPORTED IN THE LAST YEAR CURRENT MEDICATIONS TAKING CYCLOBENZAPRINE HCL 5 MG TABLET 1 TABLET ORALLY 1 TABS IN A.M. , 2-3 TABS IN P.M. TAKING ESTRADIOL 0.5 MG TABLET ORALLY DAILY TAKING NEXIUM 40 MG TABLET 1 TAB ORAL DAILY TAKING PROPRANOLOL HCL 120 MG ORALLY DAILY TAKING AMBIEN 10 MG TABLET ORAL AT BEDTIME TAKING PROAIR HFA 108 (90 BASE) MCG/ACT AEROSOL SOLUTION 2 PUFFS NEEDED INHALATION QID PRN TAKING TRAZODONE HCL 150 MG TABLET 1 TABLET IN AM, 2 IN PM ORALLY TAKING EXCEDRIN MIGRAINE 250-250-65 MG TABLET 2 TABLETS NEEDED ORALLY FOUR TIMES DAILY NEEDED TAKING STOOL SOFTENER 100 MG CAPSULE 3 CAPSULES NEEDED ORALLY ONCE A DAY TAKING DULOXETINE HCL 30 MG CAPSULE DELAYED RELEASE PARTICLES 60 MG IN AM, 30 MG IN PM ORALLY TWICE DAILY TAKING TURMERIC 500 MG CAPSULE ORALLY DAILY TAKING POTASSIUM 99 MG TABLET 1 TABLET ORALLY ONCE A DAY TAKING MAGNESIUM 250 MG TABLET 1 TABLET ORALLY DAILY TAKING OXYCODONE-ACETAMINOPHEN 5-325 MG TABLET ORALLY MDD2 NEEDED FOR PAIN TAKING PRAMIPEXOLE DIHYDROCHLORIDE 0.125 MG TABLET 1-2 TABLET BEFORE BEDTIME ORALLY ONCE A DAY 3-4 HR BEFORE BEDTIME TAKING PRAZOSIN HCL 5 MG CAPSULE 1 CAPSULE AT BEDTIME ORALLY ONCE A DAY TAKING ALBUTEROL SULFATE (2.5 MG/3ML) 0.083% NEBULIZATION SOLUTION INHALATION TWICE A DAY NEEDED TAKING HYDROXYZINE HCL 25 MG TABLET ORALLY TWICE A DAY NEEDED TAKING PREDNISONE 5 MG TABLET 1 TABLET ORALLY BID, HALF TAB AT NIGHT TAKING LOSARTAN POTASSIUM 25 MG TABLET 1 TABLET ORALLY ONCE A DAY TAKING FLUOXETINE HCL 20 MG CAPSULE 2 CAPSULE ORALLY BEFORE BEDTIME NOT-TAKING IBUPROFEN 800 MG TABLET 1 TABLET ORALLY TWO TIMES DAILY NEEDED NOT-TAKING CALCIUM 600 IRON/D 1 TABLET ORAL DAILY NOT-TAKING DICLOFENAC SODIUM 75 MG TABLET DELAYED RELEASE 1 TABLET WITH FOOD OR MILK ORALLY TWICE A DAY NOT-TAKING LIDODERM 5 % PATCH 1 PATCH TO SKIN REMOVE AFTER 12 HOURS EXTERNALLY ON 12 HRS OFF 12 HRS TO MID OR LOW BACK NOT-TAKING HYDROCHLOROTHIAZIDE 12.5 37.5 MG TABLET [facility] TRIAMETERENE ORAL DAILY NOT-TAKING LISINOPRIL 10 10 MG TABLET ORAL DAILY NOT-TAKING LAMICTAL 100 MG TABLET 1/2 TAB ORALLY TWICE A DAY MEDICATION LIST REVIEWED AND RECONCILED WITH THE PATIENT PAST MEDICAL HISTORY HYPERTENSION ASTHMA REFLUX DENGERATIVE DISC DISEASE FIBROMYALGIA RADICULOPATHY LUPUS LSE POLYMYALGIA RHEUMATICA ALLERGIES MORPHINE SULFATE: ANAPHYLAXIS - ALLERGY BACLOFEN: HIVES - ALLERGY SURGICAL HISTORY PARTIAL HYSTERECTOMY 2003 GALL BLADDER REMOVED 2014 LUMBAR LAMINECTOMY FUSION 12/23/18 FAMILY HISTORY FATHER: MOTHER: ALIVE, DIAGNOSED WITH HYPERTENSION 1 BROTHER(S) , 1 SISTER(S) - HEALTHY. 2 SON(S) , 1 DAUGHTER(S) - HEALTHY. SOCIAL HISTORY GENERAL: TOBACCO USE ARE YOU A:FORMER SMOKER FORMER SMOKER.QUIT X 1MONTH OTHERS AT HOME: NONE. EDUCATION LEVEL OF EDUCATION:NOT FINISHED COLLEGE DIET: REGULAR. LANGUAGE LANGUAGES SPOKEN:[place] DOMESTIC VIOLENCE HAS THE PATIENT EVER BEEN IN A SITUATION INVOLVING DOMESTIC VIOLENCE?YES DO YOU FEEL SAFE IN YOUR ENVIRONMENT?YES NEW PATIENT PAIN DIARY FROM 0-10, WHAT LEVEL IS YOUR PAIN TODAY?9 RECREATIONAL DRUG USE DRUG USE?YES EXERCISE: WALKS. LEARNING BARRIERS / SPECIAL NEEDS CHANGE FROM LAST VISIT?NO BARRIERS TO LEARNING?NO HEARING IMPAIRED?NO VISION IMPAIRED?YES :CORRECTIVE LENSES COGNITIVELY IMPAIRED?NO READINESS TO LEARN?YES LEARNING PREFERENCES?NO LEARNING CAPABILITIES PRESENT?YES EMOTIONAL BARRIERS?NO SPECIAL DEVICES?YES :CANE POULTRY SCALDER NEEDED?NO PAIN CLINIC PFS, CLERGY, PUBLIC HEALTH REFERRALS PFS REFERRAL NEEDED?NO CLERGY REFERRAL NEEDED?NO PUBLIC HEALTH REFERRAL NEEDED?NO WAS THE PROVIDER NOTIFIED OF ANY PERTINENT INFO?YES HAS THE PATIENT BEEN EDUCATED REGARDING HIS/HER PLAN OF CARE?YES HAS THE PATIENT BEEN EDUCATED REGARDING PAIN, THE RISK FOR PAIN, THE IMPORTANCE OF EFFECTIVE PAIN MANAGEMENT, AND THE PAIN ASSESSMENT PROCESS?YES LATEX QUESTIONNAIRE LATEX ALLERGY : HAVE YOU EVER DEVELOPED ANY TYPE OF REACTION AFTER HANDLING LATEX PRODUCTS SUCH RUBBER GLOVES, CONDOMS, DIAPHRAGMS, BALLOONS, SOCKS, OR UNDERWEAR?NO LATEX ALLERGY : HAVE YOU EVER DEVELOPED ANY TYPE OF REACTION DURING OR AFTER DENTAL APPOINTMENT, VAGINAL/RECTAL EXAMINATION, SURGICAL PROCEDURE, OR ANY OTHER EXPOSURE?NO LATEX RISK : HAVE YOU EVER HAD ANY DIFFICULTY BREATHING OR HIVES AFTER EATING OR HANDLING ANY FRUITS, OR VEGETABLES; SUCH KIWI, BANANAS, STONE FRUITS, OR CHESTNUTSNO LATEX RISK : DO YOU HAVE A PREVIOUS PERSONAL HISTORY OF MORE THAN NINE SURGERIES, SPINA BIFIDA, OR REPEATED CATHERTIZATIONS? NO LATEX RISK : ARE YOU FREQUENTLY EXPOSED TO LATEX PRODUCTS IN YOUR OCCUPATION?NO DATE ASKED : 02/25/2019 CAFFEINE CAFFEINE USE?YES 1 CUP OF COFFEE DAILY,1 CUP OF TEA DAILY ADVANCE DIRECTIVE ADVANCE DIRECTIVE DISCUSSED WITH PATIENT:YES HCP - EVELYN LYLE [phone] ZOROASTRIAN [id number] LUTHERAN MARITAL STATUS: SINGLE. ALCOHOL SCREENING DID YOU HAVE A DRINK CONTAINING ALCOHOL IN THE PAST YEAR?YES POINTS2 INTERPRETATIONNEGATIVE HOW OFTEN DID YOU HAVE A DRINK CONTAINING ALCOHOL IN THE PAST YEAR?TWO TO FOUR TIMES A MONTH (2 POINTS) HOW MANY DRINKS DID YOU HAVE ON A TYPICAL DAY WHEN YOU WERE DRINKING IN THE PAST YEAR?1 OR 2 (0 POINTS) HOW OFTEN DID YOU HAVE SIX OR MORE DRINKS ON ONE OCCASION IN THE PAST YEAR?NEVER (0 POINTS) OCCUPATION: DISABLED. REVIEWED 12/24/17 1100 LASREVIEWED WITH PATIENT 08/02/18 0956 JS REVIEWED WITH PT 02/25/19 1142 BV. HOSPITALIZATION/MAJOR DIAGNOSTIC PROCEDURE SURGERIES IMHU X10 DAYS REVIEW OF SYSTEMS REVIEWED BY: PROVIDER: CHULA CERON . CONSTITUTIONAL: ANY CHANGE IN YOUR MEDICAL CONDITION? YES, PT HAD LUMBAR LAMINECTOMY AND FUSION AT THE [place] OF December,, ALSO PT DIAGNOSED WITH POLYMYALGIA AND LUPUS 01/16 BY [facility] IN [place]. . CHILLS NO . FEVER NO . INFECTION: DO YOU HAVE NEW INFECTIONS? NO . DO YOU HAVE HISTORY OF MRSA? NO . MUSCULOSKELETAL: ANY NEW PATTERNS OF PAIN OR NUMBNESS? NO . GASTROENTEROLOGY: ANY NEW CHANGE IN BOWEL CONTROL? NO . GENITOURINARY: ANY NEW CHANGE IN BLADDER CONTROL? NO . IS THERE A CHANCE YOU COULD BE ? NO . HEMATOLOGY/LYMPH: DO YOU TAKE ANY BLOOD THINNERS? (FOR EXAMPLE- COUMADIN, PLAVIX, AGGRENOX, PLATEL, PRADAXA, OR XARELTO) NO . WHEN WAS YOUR LAST DOSE? DATE: TIME: . NEUROLOGY: HAVE YOU FALLEN IN THE PAST 12 MONTHS? NO . ANY NEW EXTREMITY NUMBNESS OR WEAKNESS? NO . CARDIOLOGY: DO YOU HAVE A PACEMAKER OR DEFIBRILLATOR? NO . RESPIRATORY: HAVE YOU BEEN SICK IN THE PAST WEEK? NO . FEVER NO . FLU LIKE SYMPTOMS? NO . COUGH NO . INTEGUMENTARY: DO YOU HAVE ANY RASHES OR OPEN SORES? NO . ALLERGIC/IMMUNO: ARE YOU ALLERGIC TO IV DYE? NO . ANY NEW ALLERGIES? NO . PSYCHIATRIC: DO YOU HAVE THOUGHTS OF HURTING YOURSELF OR SOMEONE ELSE? NO . ARE YOU ABUSED, NEGLECTED, OR IN AN UNSAFE ENVIRONMENT? NO . ENDOCRINOLOGY: ARE YOU DIABETIC? NO . OTHER: DO YOU NEED ANY PRESCRIPTIONS? NO . IF YES, PLEASE LIST: ____ . ANY NEW PROBLEMS WITH YOUR MEDICATIONS? NO . WHEN DID YOU LAST EAT? ____ . WHEN DID YOU LAST DRINK? ____ . WHAT DID YOU LAST DRINK? ____ . NAME OF PERSON DRIVING YOU HOME? ____ . DO YOU HAVE ANY OTHER QUESTIONS OR CONCERNS NO . VITAL SIGNS WT 188.8 LBS, HT 67 IN, BMI 29.57 INDEX, BP 120/78 MM HG, HR 82 /MIN, RR 18 /MIN, TEMP 97.2 F, OXYGEN SAT % 95%, NA INITIALS SC 11:19, REVIEWED BY: BV. EXAMINATION GENERAL EXAMINATION: GENERAL APPEARANCE:AWAKE,ALERT ,PLEAASANT . PSYCHAFFECT NORMAL . LUNGS:LUNG GLEASON ARE CLEAR TO AUSCULTATION BILATERALLY. GOOD MOVEMENT OF AIR . HEART:S1, S2 IN A REGULAR RATE AND RHYTHM. NO SIGNIFICANT MURMURS, RUBS OR GALLOPS NOTED . MUSCULOSKELETAL:MUSCLE STRENGTH TESTING 4/5 BILATERAL LOWER EXTREMITIES. LUMBAR SACRAL SPINETRIGGER POINTS:, ELICITED WITH PALPATION OVER LUMBAR PARAVERTEBRAL MUSCLES AND RESTRICTION OF ROM IN THIS AREA. ASSESSMENTS MYALGIA, OTHER SITE - M79.18 (PRIMARY) TREATMENT MYALGIA, OTHER SITE NOTES: TPI BILAT LOW BACK. PREVENTIVE MEDICINE PAIN CLINIC TEACHING: MEDICATIONS PT GIVEN WRITTEN AND VERBAL PRE-PROCEDURE INSTRUCTIONS. PT VERBALIZES UNDERSTANDING OF ALL INSTRUCTIONS. LUCERO HUGHES 02/25/2019 12:15:12 PM > . PROCEDURE CODES FA211 ESTABILISHED PATIENT [facility] CHARGE DISPOSITION & COMMUNICATION FOLLOW UP POST (REASON: TPI BILAT LOW BACK) ELECTRONICALLY SIGNED BY OSMANY URIBE ON 03/18/2019 AT 03:10 PM EDT DISCLAIMER : THIS IS A VISIT SUMMARY EXTRACTED FROM THE [employer] CHART. IT IS NOT A COPY OF THE [employer] PROGRESS NOTE. YAMILETH
== END ==
LOC: M PAIN 11:00
PROVIDERS: ATTEND Nurse Practitioner Family
DX: M79.18 Myalgia, other site (principal); I10 Essential (primary) hypertension; J45.909 Unspecified asthma, uncomplicated; K21.9 Gastro-esophageal reflux disease without esophagitis; M35.3 Polymyalgia rheumatica; Z79.899 Other long term (current) drug therapy; Z88.5 Allergy status to narcotic agent; Z88.8 Allergy status to other drugs, medicaments and biological substances; Z87.39 Personal history of other diseases of the musculoskeletal system and connective tissue; Z87.891 Personal history of nicotine dependence

== ENCOUNTER → 2019-05-15 | Outpatient (CLI) | payer OTHER, MEDICARE, MEDICAID ==
[~2019-05-15] MED LIST changes: +BUPIVACAINE HCL 0.25% 10 ML VIAL As Ordered ONE; +BUPIVACAINE HCL 0.25% 30 ML VIAL As Ordered ONE; -DULO1CAP2 PO; -DULO1CAP3 PO; +DULO1CAP5 PO; +DULO1CAP6 PO; +TRAZ1TAB10 PO; -TRAZO50TA PO; +TRIAMCINOLONE ACETONIDE SUSP 40 MG/ML VIAL (J3301) As Ordered ONE; +diazePAM 5 MG TAB As Ordered ONE; +oxyCODONE 5MG TAB As Ordered ONE
--- NOTE | 2019-05-24 00:47 | ECWPNPC ---
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 NF TPI HISTORY OF PRESENT ILLNESS HISTORY OF PRESENT ILLNESS: PAIN THE PATIENT DESCRIBES THE PAIN... FALL RISK SCREENING: SCREENING :NO FALLS REPORTED IN THE LAST YEAR CURRENT MEDICATIONS TAKING CYCLOBENZAPRINE HCL 5 MG TABLET 1 TABLET ORALLY 1 TABS IN A.M. , 2-3 TABS IN P.M., NOTES: 05/14/19 PM TAKING ESTRADIOL 0.5 MG TABLET ORALLY DAILY, NOTES: 05/15/19499 TAKING NEXIUM 40 MG TABLET 1 TAB ORAL DAILY, NOTES: 05/14/19 PM TAKING PROPRANOLOL HCL 120 MG ORALLY DAILY, NOTES: 05/15/19499 TAKING PROAIR HFA 108 (90 BASE) MCG/ACT AEROSOL SOLUTION 2 PUFFS NEEDED INHALATION QID PRN, NOTES: 05/14/19 TAKING TRAZODONE HCL 150 MG TABLET 1 TABLET IN AM, 2 IN PM ORALLY , NOTES: 05/15/19499 TAKING EXCEDRIN MIGRAINE 250-250-65 MG TABLET 2 TABLETS NEEDED ORALLY FOUR TIMES DAILY NEEDED, NOTES: NONE RECENT TAKING STOOL SOFTENER 100 MG CAPSULE 3 CAPSULES NEEDED ORALLY ONCE A DAY, NOTES: NONE RECENT TAKING DULOXETINE HCL 30 MG CAPSULE DELAYED RELEASE PARTICLES 60 MG IN AM, 30 MG IN PM ORALLY TWICE DAILY, NOTES: 05/14/192029 TAKING TURMERIC 500 MG CAPSULE ORALLY DAILY, NOTES: 05/15/19499 TAKING POTASSIUM 99 MG TABLET 1 TABLET ORALLY ONCE A DAY, NOTES: 05/15/19499 TAKING MAGNESIUM 250 MG TABLET 1 TABLET ORALLY DAILY, NOTES: 05/15/19499 TAKING OXYCODONE-ACETAMINOPHEN 5-325 MG TABLET ORALLY MDD2 NEEDED FOR PAIN, NOTES: 2 DAYS AGO TAKING PRAMIPEXOLE DIHYDROCHLORIDE 0.125 MG TABLET 1-2 TABLET BEFORE BEDTIME ORALLY ONCE A DAY 3-4 HR BEFORE BEDTIME, NOTES: 05/14/192029 TAKING PRAZOSIN HCL 5 MG CAPSULE 1 CAPSULE AT BEDTIME ORALLY ONCE A DAY, NOTES: 05/14/192029 TAKING ALBUTEROL SULFATE (2.5 MG/3ML) 0.083% NEBULIZATION SOLUTION INHALATION TWICE A DAY NEEDED, NOTES: 05/14/192129 TAKING HYDROXYZINE HCL 25 MG TABLET ORALLY TWICE A DAY NEEDED, NOTES: TAKING PREDNISONE 5 MG TABLET 1 TABLET ORALLY BID, HALF TAB AT NIGHT, NOTES: 05/15/19499 TAKING LOSARTAN POTASSIUM 25 MG TABLET 1 TABLET ORALLY ONCE A DAY, NOTES: 05/15/19499 TAKING FLUOXETINE HCL 20 MG CAPSULE 2 CAPSULE ORALLY BEFORE BEDTIME, NOTES: 05/14/192029 TAKING QUETIAPINE FUMARATE 25 MG TABLET 1 TABLET AT BEDTIME ORALLY ONCE A DAY, NOTES: 05/14/19 PM TAKING VENLAFAXINE HCL 75 MG TABLET 1 TABLET WITH FOOD ORALLY ONCE A DAY, NOTES: 05/15/19499 TAKING OLANZAPINE 5 MG TABLET 1 TABLET ORALLY ONCE A DAY, NOTES: 05/14/192029 NOT-TAKING AMBIEN 10 MG TABLET ORAL AT BEDTIME NOT-TAKING IBUPROFEN 800 MG TABLET 1 TABLET ORALLY TWO TIMES DAILY NEEDED NOT-TAKING CALCIUM 600 IRON/D 1 TABLET ORAL DAILY NOT-TAKING DICLOFENAC SODIUM 75 MG TABLET DELAYED RELEASE 1 TABLET WITH FOOD OR MILK ORALLY TWICE A DAY NOT-TAKING LIDODERM 5 % PATCH 1 PATCH TO SKIN REMOVE AFTER 12 HOURS EXTERNALLY ON 12 HRS OFF 12 HRS TO MID OR LOW BACK NOT-TAKING HYDROCHLOROTHIAZIDE 12.5 37.5 MG TABLET [facility] TRIAMETERENE ORAL DAILY NOT-TAKING LISINOPRIL 10 10 MG TABLET ORAL DAILY NOT-TAKING LAMICTAL 100 MG TABLET 1/2 TAB ORALLY TWICE A DAY MEDICATION LIST REVIEWED AND RECONCILED WITH THE PATIENT PAST MEDICAL HISTORY HYPERTENSION ASTHMA REFLUX DENGERATIVE DISC DISEASE FIBROMYALGIA RADICULOPATHY LUPUS LSE POLYMYALGIA RHEUMATICA ALLERGIES MORPHINE SULFATE: ANAPHYLAXIS - ALLERGY BACLOFEN: HIVES - ALLERGY SURGICAL HISTORY PARTIAL HYSTERECTOMY 2004 GALL BLADDER REMOVED 2014 LUMBAR LAMINECTOMY FUSION 12/23/18 FAMILY HISTORY FATHER: MOTHER: ALIVE, DIAGNOSED WITH HYPERTENSION 1 BROTHER(S) , 1 SISTER(S) - HEALTHY. 2 SON(S) , 1 DAUGHTER(S) - HEALTHY. SOCIAL HISTORY GENERAL: TOBACCO USE ARE YOU A:FORMER SMOKER FORMER SMOKER.QUIT X 1MONTH OTHERS AT HOME: NONE. EDUCATION LEVEL OF EDUCATION:NOT FINISHED COLLEGE DIET: REGULAR. LANGUAGE LANGUAGES SPOKEN:VINCENTIAN DOMESTIC VIOLENCE HAS THE PATIENT EVER BEEN IN A SITUATION INVOLVING DOMESTIC VIOLENCE?YES DO YOU FEEL SAFE IN YOUR ENVIRONMENT?YES NEW PATIENT PAIN DIARY FROM 0-10, WHAT LEVEL IS YOUR PAIN TODAY?9 RECREATIONAL DRUG USE DRUG USE?YES EXERCISE: WALKS. LEARNING BARRIERS / SPECIAL NEEDS CHANGE FROM LAST VISIT?NO BARRIERS TO LEARNING?NO HEARING IMPAIRED?NO VISION IMPAIRED?YES :CORRECTIVE LENSES COGNITIVELY IMPAIRED?NO READINESS TO LEARN?YES LEARNING PREFERENCES?NO LEARNING CAPABILITIES PRESENT?YES EMOTIONAL BARRIERS?NO SPECIAL DEVICES?YES :CANE AUTOMOBILE MECHANIC NEEDED?NO PAIN CLINIC PFS, CLERGY, PUBLIC HEALTH REFERRALS PFS REFERRAL NEEDED?NO CLERGY REFERRAL NEEDED?NO PUBLIC HEALTH REFERRAL NEEDED?NO WAS THE PROVIDER NOTIFIED OF ANY PERTINENT INFO?YES HAS THE PATIENT BEEN EDUCATED REGARDING HIS/HER PLAN OF CARE?YES HAS THE PATIENT BEEN EDUCATED REGARDING PAIN, THE RISK FOR PAIN, THE IMPORTANCE OF EFFECTIVE PAIN MANAGEMENT, AND THE PAIN ASSESSMENT PROCESS?YES LATEX QUESTIONNAIRE LATEX ALLERGY : HAVE YOU EVER DEVELOPED ANY TYPE OF REACTION AFTER HANDLING LATEX PRODUCTS SUCH RUBBER GLOVES, CONDOMS, DIAPHRAGMS, BALLOONS, SOCKS, OR UNDERWEAR?NO LATEX ALLERGY : HAVE YOU EVER DEVELOPED ANY TYPE OF REACTION DURING OR AFTER DENTAL APPOINTMENT, VAGINAL/RECTAL EXAMINATION, SURGICAL PROCEDURE, OR ANY OTHER EXPOSURE?NO LATEX RISK : HAVE YOU EVER HAD ANY DIFFICULTY BREATHING OR HIVES AFTER EATING OR HANDLING ANY FRUITS, OR VEGETABLES; SUCH KIWI, BANANAS, STONE FRUITS, OR CHESTNUTSNO LATEX RISK : DO YOU HAVE A PREVIOUS PERSONAL HISTORY OF MORE THAN NINE SURGERIES, SPINA BIFIDA, OR REPEATED CATHERIZATIONS? NO LATEX RISK : ARE YOU FREQUENTLY EXPOSED TO LATEX PRODUCTS IN YOUR OCCUPATION?NO DATE ASKED : 02/25/2019 CAFFEINE CAFFEINE USE?YES 1 CUP OF COFFEE DAILY,1 CUP OF TEA DAILY ADVANCE DIRECTIVE ADVANCE DIRECTIVE DISCUSSED WITH PATIENT:YES HCP - EVELYN LYLE [phone] ANABAPTISM [id number] CONFUCIANISM MARITAL STATUS: SINGLE. ALCOHOL SCREENING DID YOU HAVE A DRINK CONTAINING ALCOHOL IN THE PAST YEAR?YES POINTS2 INTERPRETATIONNEGATIVE HOW OFTEN DID YOU HAVE A DRINK CONTAINING ALCOHOL IN THE PAST YEAR?TWO TO FOUR TIMES A MONTH (2 POINTS) HOW MANY DRINKS DID YOU HAVE ON A TYPICAL DAY WHEN YOU WERE DRINKING IN THE PAST YEAR?1 OR 2 (0 POINTS) HOW OFTEN DID YOU HAVE SIX OR MORE DRINKS ON ONE OCCASION IN THE PAST YEAR?NEVER (0 POINTS) OCCUPATION: DISABLED. REVIEWED 12/24/17 1100 LASREVIEWED WITH PATIENT 08/02/18 0956 JS REVIEWED WITH PT 02/25/19 1142 BVREVIEWED WITH PT 05/15/19 0971 BV. HOSPITALIZATION/MAJOR DIAGNOSTIC PROCEDURE SURGERIES IMHU X10 DAYS REVIEW OF SYSTEMS REVIEWED BY: PROVIDER: . CONSTITUTIONAL: ANY CHANGE IN YOUR MEDICAL CONDITION? NO . CHILLS NO . FEVER NO . INFECTION: DO YOU HAVE NEW INFECTIONS? NO . DO YOU HAVE HISTORY OF MRSA? NO . MUSCULOSKELETAL: ANY NEW PATTERNS OF PAIN OR NUMBNESS? NO . GASTROENTEROLOGY: ANY NEW CHANGE IN BOWEL CONTROL? NO . GENITOURINARY: ANY NEW CHANGE IN BLADDER CONTROL? NO . IS THERE A CHANCE YOU COULD BE ? NO . HEMATOLOGY/LYMPH: DO YOU TAKE ANY BLOOD THINNERS? (FOR EXAMPLE- COUMADIN, PLAVIX, AGGRENOX, PLATEL, PRADAXA, OR XARELTO) NO . WHEN WAS YOUR LAST DOSE? DATE: TIME: . NEUROLOGY: HAVE YOU FALLEN IN THE PAST 12 MONTHS? NO . ANY NEW EXTREMITY NUMBNESS OR WEAKNESS? NO . CARDIOLOGY: DO YOU HAVE A PACEMAKER OR DEFIBRILLATOR? NO . RESPIRATORY: HAVE YOU BEEN SICK IN THE PAST WEEK? NO . FEVER NO . FLU LIKE SYMPTOMS? NO . COUGH NO . INTEGUMENTARY: DO YOU HAVE ANY RASHES OR OPEN SORES? NO . ALLERGIC/IMMUNO: ARE YOU ALLERGIC TO IV DYE? NO . ANY NEW ALLERGIES? NO . PSYCHIATRIC: DO YOU HAVE THOUGHTS OF HURTING YOURSELF OR SOMEONE ELSE? NO . ARE YOU ABUSED, NEGLECTED, OR IN AN UNSAFE ENVIRONMENT? NO . ENDOCRINOLOGY: ARE YOU DIABETIC? NO . OTHER: DO YOU NEED ANY PRESCRIPTIONS? NO . IF YES, PLEASE LIST: ____ . ANY NEW PROBLEMS WITH YOUR MEDICATIONS? NO . WHEN DID YOU LAST EAT? 05/14/19 1800 . WHEN DID YOU LAST DRINK? 05/15/19 0500 . WHAT DID YOU LAST DRINK? WATER . NAME OF PERSON DRIVING YOU HOME? [place] SEE . DO YOU HAVE ANY OTHER QUESTIONS OR CONCERNS NO . VITAL SIGNS WT 193.2 LBS, HT 67 IN, BMI 30.26 INDEX, BP 119/75 MM HG, HR 86 /MIN, RR 18 /MIN, TEMP 98.6 F, OXYGEN SAT % 96%, NA INITIALS AW 0929, REVIEWED BY: BV. ASSESSMENTS MYALGIA, OTHER SITE - M79.18 (PRIMARY) PROCEDURES PN TRIGGER POINT INJECTION WITH STEROIDS PRE PROCEDURE DIAGNOSIS 1. MYALGIA 2. PAIN AT RIGHT SHOULDER AREA AND BILATERAL LOW BACK AREA POST PROCEDURE DIAGNOSIS 1. MYALGIA 2. PAIN AT RIGHT SHOULDER AREA AND BILATERAL LOW BACK AREA PROCEDURE TRIGGER POINT INJECTION AT RIGHT SHOULDER AREA AND BILATERAL LOW BACK AREA SURGEON DR. CONNIE KAUR CAUSTICISER NONE ANESTHESIA LOCAL PRE PROCEDURE NOTE THE PATIENT HAS A HISTORY OF CHRONIC PAIN AT THE RIGHT SHOULDER AREA AND RIGHT AND LEFT LOW BACK AREA. I EVALUATE THE PATIENT AND REVIEWED THE CHART. THERE IS EVIDENCE OF BANDS OF TISSUE WITH RESTRICTION OF MOVEMENT AND PRESENCE OF TRIGGER POINT AT THE AFFECTED AREA. I WENT OVER THE RISKS, ALTERNATIVES, AND BENEFITS ASSOCIATED WITH THIS PROCEDURE. THE PATIENT WOULD LIKE TO PROCEED AND GIVE CONSENT TO PERFORMED THE PROCEDURE. THE PATIENT DENIES UNEXPLAINABLE WEIGHT LOSS, FEVER, CHILLS, OR NEW CHANGES IN URINARY OR BOWEL CONTROL DESCRIPTION OF PROCEDURE THE PATIENT WAS BROUGHT TO THE PROCEDURE ROOM AND PLACED IN THE SITTING POSITION. THE AREA WAS CLEANED WITH ALCOHOL. THE PROCEDURE WAS DONE USING ASEPTIC STERILE TECHNIQUE. I CHECKED LATERALITY AND THE LEVEL WHERE THE PROCEDURE WAS GOING TO BE PERFORMED WITH THE PATIENT AND THE SUPPORTING STAFF AT THE MOMENT OF THE TIME OUT IN THE PROCEDURE ROOM. USING A 25-GAUGE NEEDLE, TRIGGER POINTS WERE INJECTED AT THE RIGHT SHOULDER AREA AND RIGHT AND LEFT LOW BACK AREA WITH A TOTAL OF 40 ML OF BUPIVACAINE 0.25% AND KENALOG 40 MG. THERE WAS NO EVIDENCE OF BLOOD, PARESTHESIA OR CEREBROSPINAL FLUID DURING THE PROCEDURE. THE PATIENT WAS SENT TO THE RECOVERY ROOM. THE PATIENT WAS MOVING THE EXTREMITIES AND DOING WELL. THERE WAS NO COMPLICATION DURING THE PROCEDURE POST PROCEDURE NOTE THE PATIENT WILL BE SEEN IN A FOLLOW UP IN THE NEXT FEW WEEKS. INSTRUCTIONS WERE GIVEN, QUESTIONS WERE ANSWERED, AND THE PATIENT EXPRESSED UNDERSTANDING AND AGREES WITH THE PLAN. I, AUDREY MURGUIA, DOCUMENTED THE ABOVE INFORMATION ACTING A SCRIBE FOR DR. KAUR. I HAVE REVIEWED THE ABOVE DOCUMENT, WRITTEN BY AUDREY MITCHELLIBJaclyn AND I VERIFY THAT IT IS ACCURATE. PROCEDURE CODES 64187 INJECT TRIGGER POINTS 3/> DISPOSITION & COMMUNICATION FOLLOW UP 3 WEEKS ELECTRONICALLY SIGNED BY CONNIE KAUR MD, MD ON 05/23/2019 AT 02:10 PM EDT DISCLAIMER : THIS IS A VISIT SUMMARY EXTRACTED FROM THE [employer] CHART. IT IS NOT A COPY OF THE [employer] PROGRESS NOTE. YAMILETH
== END ==
LOC: M PAIN 09:30
PROVIDERS: ATTEND Anesthesiology
DX: M79.18 Myalgia, other site (principal); I10 Essential (primary) hypertension; J45.909 Unspecified asthma, uncomplicated; K21.9 Gastro-esophageal reflux disease without esophagitis; M79.7 Fibromyalgia; M35.3 Polymyalgia rheumatica; M32.19 Other organ or system involvement in systemic lupus erythematosus; Z87.891 Personal history of nicotine dependence; Z79.52 Long term (current) use of systemic steroids; Z79.891 Long term (current) use of opiate analgesic; Z79.899 Other long term (current) drug therapy; Z88.2 Allergy status to sulfonamides; Z88.5 Allergy status to narcotic agent
CPT/HCPCS: 20553; J3301

== ENCOUNTER → 2019-06-02 | Outpatient (CLI) | payer OTHER, MEDICARE, MEDICAID ==
[~2019-06-02] MED LIST changes: -BUPIVACAINE HCL 0.25% 10 ML VIAL As Ordered ONE; -BUPIVACAINE HCL 0.25% 30 ML VIAL As Ordered ONE; -TRIAMCINOLONE ACETONIDE SUSP 40 MG/ML VIAL (J3301) As Ordered ONE; -diazePAM 5 MG TAB As Ordered ONE; -oxyCODONE 5MG TAB As Ordered ONE
--- NOTE | 2019-06-04 00:34 | ECWPNPC ---
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 POST PROC HISTORY OF PRESENT ILLNESS HISTORY OF PRESENT ILLNESS: PAIN THE PATIENT DESCRIBES THE PAIN... 49 YEAR OLD FEMALE IN FOR POST TPI FOLLOW UP. SHE FEELS THE PROCEDURE WORKED WELL AND HER PAIN WENT FROM AN 8 DOWN TO A 0. SHE CURRENTLY RATES HER PAIN AT AN 8/10 AND WOULD LIKE ANOTHER PROCEDURE. SHE DESCRIBES THE PAIN ACHING, SORE, AND TENDER. SHE STATES SHE WOULD LIKE TO RECEIVE THE PRE PROCEDURE MEDICATION EARLIER IF POSSIBLE IT SEEMED HER MEDICATION DIDN'T START TO WORK UNTIL AFTER THE PROCEDURE. FALL RISK SCREENING: SCREENING :NO FALLS REPORTED IN THE LAST YEAR CURRENT MEDICATIONS TAKING CYCLOBENZAPRINE HCL 5 MG TABLET 1 TABLET ORALLY 1 TABS IN A.M. , 2-3 TABS IN P.M. TAKING ESTRADIOL 0.5 MG TABLET ORALLY DAILY TAKING NEXIUM 40 MG TABLET 1 TAB ORAL DAILY TAKING PROPRANOLOL HCL 120 MG ORALLY DAILY TAKING PROAIR HFA 108 (90 BASE) MCG/ACT AEROSOL SOLUTION 2 PUFFS NEEDED INHALATION QID PRN TAKING TRAZODONE HCL 150 MG TABLET 1 TABLET IN AM, 2 IN PM ORALLY TAKING DULOXETINE HCL 30 MG CAPSULE DELAYED RELEASE PARTICLES 60 MG IN AM, 30 MG IN PM ORALLY TWICE DAILY TAKING TURMERIC 500 MG CAPSULE ORALLY DAILY TAKING POTASSIUM 99 MG TABLET 1 TABLET ORALLY ONCE A DAY TAKING MAGNESIUM 250 MG TABLET 1 TABLET ORALLY DAILY TAKING OXYCODONE-ACETAMINOPHEN 5-325 MG TABLET ORALLY MDD2 NEEDED FOR PAIN TAKING PRAMIPEXOLE DIHYDROCHLORIDE 0.125 MG TABLET 1-2 TABLET BEFORE BEDTIME ORALLY ONCE A DAY 3-4 HR BEFORE BEDTIME TAKING PRAZOSIN HCL 5 MG CAPSULE 1 CAPSULE AT BEDTIME ORALLY ONCE A DAY TAKING ALBUTEROL SULFATE (2.5 MG/3ML) 0.083% NEBULIZATION SOLUTION INHALATION TWICE A DAY NEEDED TAKING HYDROXYZINE HCL 25 MG TABLET ORALLY TWICE A DAY NEEDED TAKING PREDNISONE 5 MG TABLET 1 TABLET ORALLY DAILY TAKING LOSARTAN POTASSIUM 25 MG TABLET 1 TABLET ORALLY ONCE A DAY TAKING FLUOXETINE HCL 20 MG CAPSULE 2 CAPSULE ORALLY BEFORE BEDTIME TAKING QUETIAPINE FUMARATE 25 MG TABLET 1 TABLET AT BEDTIME ORALLY ONCE A DAY TAKING VENLAFAXINE HCL 75 MG TABLET 1 TABLET WITH FOOD ORALLY ONCE A DAY TAKING OLANZAPINE 5 MG TABLET 1 TABLET ORALLY ONCE A DAY NOT-TAKING EXCEDRIN MIGRAINE 250-250-65 MG TABLET 2 TABLETS NEEDED ORALLY FOUR TIMES DAILY NEEDED NOT-TAKING STOOL SOFTENER 100 MG CAPSULE 3 CAPSULES NEEDED ORALLY ONCE A DAY NOT-TAKING AMBIEN 10 MG TABLET ORAL AT BEDTIME NOT-TAKING CALCIUM 600 IRON/D 1 TABLET ORAL DAILY NOT-TAKING IBUPROFEN 800 MG TABLET 1 TABLET ORALLY TWO TIMES DAILY NEEDED NOT-TAKING DICLOFENAC SODIUM 75 MG TABLET DELAYED RELEASE 1 TABLET WITH FOOD OR MILK ORALLY TWICE A DAY NOT-TAKING LIDODERM 5 % PATCH 1 PATCH TO SKIN REMOVE AFTER 12 HOURS EXTERNALLY ON 12 HRS OFF 12 HRS TO MID OR LOW BACK NOT-TAKING HYDROCHLOROTHIAZIDE 12.5 37.5 MG TABLET [facility] TRIAMETERENE ORAL DAILY NOT-TAKING LISINOPRIL 10 10 MG TABLET ORAL DAILY NOT-TAKING LAMICTAL 100 MG TABLET 1/2 TAB ORALLY TWICE A DAY MEDICATION LIST REVIEWED AND RECONCILED WITH THE PATIENT PAST MEDICAL HISTORY HYPERTENSION ASTHMA REFLUX DENGERATIVE DISC DISEASE FIBROMYALGIA RADICULOPATHY LUPUS LSE POLYMYALGIA RHEUMATICA RIGHT SHOULDER AND BACK PAIN ALLERGIES MORPHINE SULFATE: ANAPHYLAXIS - ALLERGY BACLOFEN: HIVES - ALLERGY SURGICAL HISTORY PARTIAL HYSTERECTOMY 2003 GALL BLADDER REMOVED 2014 LUMBAR LAMINECTOMY FUSION 12/23/18 FAMILY HISTORY FATHER: MOTHER: ALIVE, DIAGNOSED WITH HYPERTENSION 1 BROTHER(S) , 1 SISTER(S) - HEALTHY. 2 SON(S) , 1 DAUGHTER(S) - HEALTHY. SOCIAL HISTORY GENERAL: TOBACCO USE ARE YOU A:FORMER SMOKER FORMER SMOKER.QUIT X 1MONTH OTHERS AT HOME: NONE. EDUCATION LEVEL OF EDUCATION:NOT FINISHED COLLEGE DIET: REGULAR. LANGUAGE LANGUAGES SPOKEN:ARMENIAN DOMESTIC VIOLENCE HAS THE PATIENT EVER BEEN IN A SITUATION INVOLVING DOMESTIC VIOLENCE?YES DO YOU FEEL SAFE IN YOUR ENVIRONMENT?YES RECREATIONAL DRUG USE DRUG USE?YES EXERCISE: WALKS. LEARNING BARRIERS / SPECIAL NEEDS CHANGE FROM LAST VISIT?NO BARRIERS TO LEARNING?NO HEARING IMPAIRED?NO VISION IMPAIRED?YES :CORRECTIVE LENSES COGNITIVELY IMPAIRED?NO READINESS TO LEARN?YES LEARNING PREFERENCES?NO LEARNING CAPABILITIES PRESENT?YES EMOTIONAL BARRIERS?NO SPECIAL DEVICES?YES :CANE PELLETIZER NEEDED?NO PAIN CLINIC PFS, CLERGY, PUBLIC HEALTH REFERRALS PFS REFERRAL NEEDED?NO CLERGY REFERRAL NEEDED?NO PUBLIC HEALTH REFERRAL NEEDED?NO WAS THE PROVIDER NOTIFIED OF ANY PERTINENT INFO?YES HAS THE PATIENT BEEN EDUCATED REGARDING HIS/HER PLAN OF CARE?YES HAS THE PATIENT BEEN EDUCATED REGARDING PAIN, THE RISK FOR PAIN, THE IMPORTANCE OF EFFECTIVE PAIN MANAGEMENT, AND THE PAIN ASSESSMENT PROCESS?YES LATEX QUESTIONNAIRE LATEX ALLERGY : HAVE YOU EVER DEVELOPED ANY TYPE OF REACTION AFTER HANDLING LATEX PRODUCTS SUCH RUBBER GLOVES, CONDOMS, DIAPHRAGMS, BALLOONS, SOCKS, OR UNDERWEAR?NO LATEX ALLERGY : HAVE YOU EVER DEVELOPED ANY TYPE OF REACTION DURING OR AFTER DENTAL APPOINTMENT, VAGINAL/RECTAL EXAMINATION, SURGICAL PROCEDURE, OR ANY OTHER EXPOSURE?NO LATEX RISK : HAVE YOU EVER HAD ANY DIFFICULTY BREATHING OR HIVES AFTER EATING OR HANDLING ANY FRUITS, OR VEGETABLES; SUCH KIWI, BANANAS, STONE FRUITS, OR CHESTNUTSNO LATEX RISK : DO YOU HAVE A PREVIOUS PERSONAL HISTORY OF MORE THAN NINE SURGERIES, SPINA BIFIDA, OR REPEATED CATHERIZATIONS? NO LATEX RISK : ARE YOU FREQUENTLY EXPOSED TO LATEX PRODUCTS IN YOUR OCCUPATION?NO DATE ASKED : 06/02/2019 CAFFEINE CAFFEINE USE?YES 1 CUP OF COFFEE DAILY,1 CUP OF TEA DAILY ADVANCE DIRECTIVE ADVANCE DIRECTIVE DISCUSSED WITH PATIENT:YES HCP - EVELYN LYLE [phone] WORSHIP [id number] TENRIISM MARITAL STATUS: SINGLE. ALCOHOL SCREENING DID YOU HAVE A DRINK CONTAINING ALCOHOL IN THE PAST YEAR?YES POINTS2 INTERPRETATIONNEGATIVE HOW OFTEN DID YOU HAVE A DRINK CONTAINING ALCOHOL IN THE PAST YEAR?TWO TO FOUR TIMES A MONTH (2 POINTS) HOW MANY DRINKS DID YOU HAVE ON A TYPICAL DAY WHEN YOU WERE DRINKING IN THE PAST YEAR?1 OR 2 (0 POINTS) HOW OFTEN DID YOU HAVE SIX OR MORE DRINKS ON ONE OCCASION IN THE PAST YEAR?NEVER (0 POINTS) OCCUPATION: DISABLED. REVIEWED 12/24/17 1100 LASREVIEWED WITH PATIENT 08/02/18 0956 JS REVIEWED WITH PT 02/25/19 1142 BVREVIEWED WITH PT 05/15/19 0949 BV06/02/19 REVIEWED WITH PT. AD. HOSPITALIZATION/MAJOR DIAGNOSTIC PROCEDURE SURGERIES [facility] X10 DAYS REVIEW OF SYSTEMS REVIEWED BY: PROVIDER: DENEEN EDWARDS . CONSTITUTIONAL: ANY CHANGE IN YOUR MEDICAL CONDITION? NO . CHILLS NO . FEVER NO . INFECTION: DO YOU HAVE NEW INFECTIONS? NO . DO YOU HAVE HISTORY OF MRSA? NO . MUSCULOSKELETAL: ANY NEW PATTERNS OF PAIN OR NUMBNESS? NO . GASTROENTEROLOGY: ANY NEW CHANGE IN BOWEL CONTROL? NO . GENITOURINARY: ANY NEW CHANGE IN BLADDER CONTROL? NO . IS THERE A CHANCE YOU COULD BE ? NO . HEMATOLOGY/LYMPH: DO YOU TAKE ANY BLOOD THINNERS? (FOR EXAMPLE- COUMADIN, PLAVIX, AGGRENOX, PLATEL, PRADAXA, OR XARELTO) NO . WHEN WAS YOUR LAST DOSE? DATE: TIME: . NEUROLOGY: HAVE YOU FALLEN IN THE PAST 12 MONTHS? YES, WEEKS AGO FELL BACK ON HER LEFT LOWER BACK WHICH HAS BEEN PAINFUL SINCE . ANY NEW EXTREMITY NUMBNESS OR WEAKNESS? NO . CARDIOLOGY: DO YOU HAVE A PACEMAKER OR DEFIBRILLATOR? NO . RESPIRATORY: HAVE YOU BEEN SICK IN THE PAST WEEK? NO . FEVER NO . FLU LIKE SYMPTOMS? NO . COUGH NO . INTEGUMENTARY: DO YOU HAVE ANY RASHES OR OPEN SORES? NO . ALLERGIC/IMMUNO: ARE YOU ALLERGIC TO IV DYE? NO . ANY NEW ALLERGIES? NO . PSYCHIATRIC: DO YOU HAVE THOUGHTS OF HURTING YOURSELF OR SOMEONE ELSE? NO . ARE YOU ABUSED, NEGLECTED, OR IN AN UNSAFE ENVIRONMENT? NO . ENDOCRINOLOGY: ARE YOU DIABETIC? NO . OTHER: DO YOU NEED ANY PRESCRIPTIONS? NO . IF YES, PLEASE LIST: ____ . ANY NEW PROBLEMS WITH YOUR MEDICATIONS? NO . WHEN DID YOU LAST EAT? ____ . WHEN DID YOU LAST DRINK? ____ . WHAT DID YOU LAST DRINK? ____ . NAME OF PERSON DRIVING YOU HOME? ____ . DO YOU HAVE ANY OTHER QUESTIONS OR CONCERNS YES, WOULD LIKE IV SEDATION IF SHE NEEDS ANOTHER PROCEDURE . VITAL SIGNS WT 197.2 LBS, HT 67 IN, BMI 30.88 INDEX, BP 117/80 MM HG, HR 102 /MIN, RR 18 /MIN, TEMP 97.1 F, OXYGEN SAT % 98%, SAFE IN ENV? (Y/N) Y, NA INITIALS CA 10:42, REVIEWED BY: AKHIL. EXAMINATION GENERAL EXAMINATION: GENERALNO ACUTE DISTRESS, WELL NOURISHED AND HYDRATED. PSYCHAPPROPRIATE MOOD AND AFFECT . LUNGS:CLEAR TO AUSCULTATION BILATERALLY, NO WHEEZES, RHONCHI, RALES. HEART:NO MURMURS, REGULAR RATE AND RHYTHM. BACK:POINT TENDER ALONG RIGHT TRAPEZIUS AND PARASPINOUS BILATERALLY. SKIN SHOWS NO ERYTHEMA, ECCHYMOSIS, INCREASED WARMTH. AND/OR SKIN ERUPTIONS. . ASSESSMENTS INTERVERTEBRAL DISC DISORDER WITH RADICULOPATHY OF LUMBAR REGION - M51.16 TREATMENT OTHERS NOTES: TPI OF RIGHT SHOULDER AND BILATERAL PARASPINOUS.. CLINICAL NOTES: 49 YEAR OLD FEMALE IN FOR POST TPI FOLLOW UP. GIVEN PRESENTING SYMPTOMS AND RESULTS OF PHYSICAL EXAMINATION RECOMMENDED REPEAT TPI WITH POST PROCEDURAL FOLLOW UP. PATIENT HAS EXPRESSED UNDERSTANDING OF AND WAS IN AGREEMENT WITH TREATMENT PLAN. GIVEN TIME TO ASK QUESTIONS AND EXPRESS CONCERNS. PREVENTIVE MEDICINE PAIN CLINIC TEACHING: PROCEDURE TEACHING PT. DECLINED PRINTED INFORMATION ON TRIGGER POINT INJECTIONS STATING SHE IS FAMILIAR WITH THEM. PRINTED PRE-PROCEDURE INSTRUCTIONS GIVEN TO AND REVIEWED WITH PT. AND SHE VERBALIZED UNDERSTANDING. AD. PROCEDURE CODES FA211 ESTABILISHED PATIENT [facility] CHARGE DISPOSITION & COMMUNICATION FOLLOW UP POST PROCEDURE (REASON: TPI OF RIGHT SHOULDER AND BILATERAL PARASPINOUS.) ELECTRONICALLY SIGNED BY OSMANY FOREMAN ON 06/03/2019 AT 09:14 AM EDT DISCLAIMER : THIS IS A VISIT SUMMARY EXTRACTED FROM THE [employer] CHART. IT IS NOT A COPY OF THE [employer] PROGRESS NOTE. YAMILETH
== END ==
LOC: M PAIN 10:00
PROVIDERS: ATTEND Family Medicine
DX: M51.16 Intervertebral disc disorders with radiculopathy, lumbar region (principal); I10 Essential (primary) hypertension; Z79.891 Long term (current) use of opiate analgesic; Z79.899 Other long term (current) drug therapy; Z87.891 Personal history of nicotine dependence; Z88.5 Allergy status to narcotic agent

== ENCOUNTER → 2019-07-23 | Outpatient (CLI) | payer MEDICARE, MEDICAID ==
[~2019-07-23] MED LIST changes: +BUPIVACAINE HCL 0.25% 10 ML VIAL As Ordered ONE; +BUPIVACAINE HCL 0.25% 30 ML VIAL As Ordered ONE; -RIZA10TA4 PO; +RIZA10TA58 PO; +TRIAMCINOLONE ACETONIDE SUSP 40 MG/ML VIAL (J3301) As Ordered ONE; +diazePAM 5 MG TAB As Ordered ONE; +oxyCODONE 5MG TAB As Ordered ONE
--- NOTE | 2019-08-11 11:41 | ECWPNPC ---
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 TPI OF RIGHT SHOULDER AND BILATERAL LUMBAR HISTORY OF PRESENT ILLNESS HISTORY OF PRESENT ILLNESS: PAIN THE PATIENT DESCRIBES THE PAIN... FALL RISK SCREENING: SCREENING :NO FALLS REPORTED IN THE LAST YEAR CURRENT MEDICATIONS TAKING CYCLOBENZAPRINE HCL 5 MG TABLET 1 TABLET ORALLY 1 TABS IN A.M. , 2-3 TABS IN P.M. TAKING ESTRADIOL 0.5 MG TABLET ORALLY DAILY TAKING NEXIUM 40 MG TABLET 1 TAB ORAL DAILY TAKING PROPRANOLOL HCL 120 MG ORALLY DAILY TAKING PROAIR HFA 108 (90 BASE) MCG/ACT AEROSOL SOLUTION 2 PUFFS NEEDED INHALATION QID PRN TAKING TRAZODONE HCL 150 MG TABLET 1 TABLET IN AM, 2 IN PM ORALLY TAKING DULOXETINE HCL 30 MG CAPSULE DELAYED RELEASE PARTICLES 60 MG IN AM, 30 MG IN PM ORALLY TWICE DAILY TAKING TURMERIC 500 MG CAPSULE ORALLY DAILY TAKING POTASSIUM 99 MG TABLET 1 TABLET ORALLY ONCE A DAY TAKING MAGNESIUM 250 MG TABLET 1 TABLET ORALLY DAILY TAKING OXYCODONE-ACETAMINOPHEN 5-325 MG TABLET ORALLY MDD2 NEEDED FOR PAIN TAKING PRAMIPEXOLE DIHYDROCHLORIDE 0.125 MG TABLET 1-2 TABLET BEFORE BEDTIME ORALLY ONCE A DAY 3-4 HR BEFORE BEDTIME TAKING PRAZOSIN HCL 5 MG CAPSULE 1 CAPSULE AT BEDTIME ORALLY ONCE A DAY TAKING ALBUTEROL SULFATE (2.5 MG/3ML) 0.083% NEBULIZATION SOLUTION INHALATION TWICE A DAY NEEDED TAKING HYDROXYZINE HCL 25 MG TABLET ORALLY TWICE A DAY NEEDED TAKING PREDNISONE 5 MG TABLET 1 TABLET ORALLY DAILY TAKING LOSARTAN POTASSIUM 25 MG TABLET 1 TABLET ORALLY ONCE A DAY TAKING QUETIAPINE FUMARATE 25 MG TABLET 1 TABLET AT BEDTIME ORALLY ONCE A DAY TAKING VENLAFAXINE HCL 75 MG TABLET 1 TABLET WITH FOOD ORALLY ONCE A DAY TAKING OLANZAPINE 5 MG TABLET 1 TABLET ORALLY ONCE A DAY NOT-TAKING FLUOXETINE HCL 20 MG CAPSULE 2 CAPSULE ORALLY BEFORE BEDTIME NOT-TAKING EXCEDRIN MIGRAINE 250-250-65 MG TABLET 2 TABLETS NEEDED ORALLY FOUR TIMES DAILY NEEDED NOT-TAKING STOOL SOFTENER 100 MG CAPSULE 3 CAPSULES NEEDED ORALLY ONCE A DAY NOT-TAKING AMBIEN 10 MG TABLET ORAL AT BEDTIME NOT-TAKING CALCIUM 600 IRON/D 1 TABLET ORAL DAILY NOT-TAKING IBUPROFEN 800 MG TABLET 1 TABLET ORALLY TWO TIMES DAILY NEEDED NOT-TAKING DICLOFENAC SODIUM 75 MG TABLET DELAYED RELEASE 1 TABLET WITH FOOD OR MILK ORALLY TWICE A DAY NOT-TAKING LIDODERM 5 % PATCH 1 PATCH TO SKIN REMOVE AFTER 12 HOURS EXTERNALLY ON 12 HRS OFF 12 HRS TO MID OR LOW BACK NOT-TAKING HYDROCHLOROTHIAZIDE 12.5 37.5 MG TABLET [facility]IH TRIAMETERENE ORAL DAILY NOT-TAKING LISINOPRIL 10 10 MG TABLET ORAL DAILY NOT-TAKING LAMICTAL 100 MG TABLET 1/2 TAB ORALLY TWICE A DAY MEDICATION LIST REVIEWED AND RECONCILED WITH THE PATIENT PAST MEDICAL HISTORY HYPERTENSION ASTHMA REFLUX DENGERATIVE DISC DISEASE FIBROMYALGIA RADICULOPATHY LUPUS LSE POLYMYALGIA RHEUMATICA RIGHT SHOULDER AND BACK PAIN ALLERGIES MORPHINE SULFATE: ANAPHYLAXIS - ALLERGY BACLOFEN: HIVES - ALLERGY SURGICAL HISTORY PARTIAL HYSTERECTOMY 2003 GALL BLADDER REMOVED 2014 LUMBAR LAMINECTOMY FUSION 12/23/18 FAMILY HISTORY FATHER: MOTHER: ALIVE, DIAGNOSED WITH HYPERTENSION 1 BROTHER(S) , 1 SISTER(S) - HEALTHY. 2 SON(S) , 1 DAUGHTER(S) - HEALTHY. SOCIAL HISTORY GENERAL: TOBACCO USE ARE YOU A:FORMER SMOKER FORMER SMOKER.QUIT X 1MONTH OTHERS AT HOME: NONE. EDUCATION LEVEL OF EDUCATION:NOT FINISHED COLLEGE DIET: REGULAR. LANGUAGE LANGUAGES SPOKEN:PORTUGUESE DOMESTIC VIOLENCE HAS THE PATIENT EVER BEEN IN A SITUATION INVOLVING DOMESTIC VIOLENCE?YES DO YOU FEEL SAFE IN YOUR ENVIRONMENT?YES RECREATIONAL DRUG USE DRUG USE?YES EXERCISE: WALKS. 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 DEVICES?YES :CANE RACING MECHANIC NEEDED?NO PAIN CLINIC PFS, CLERGY, PUBLIC HEALTH REFERRALS PFS REFERRAL NEEDED?NO CLERGY REFERRAL NEEDED?NO PUBLIC HEALTH REFERRAL NEEDED?NO WAS THE PROVIDER NOTIFIED OF ANY PERTINENT INFO?YES HAS THE PATIENT BEEN EDUCATED REGARDING HIS/HER PLAN OF CARE?YES HAS THE PATIENT BEEN EDUCATED REGARDING PAIN, THE RISK FOR PAIN, THE IMPORTANCE OF EFFECTIVE PAIN MANAGEMENT, AND THE PAIN ASSESSMENT PROCESS?YES LATEX QUESTIONNAIRE LATEX ALLERGY : HAVE YOU EVER DEVELOPED ANY TYPE OF REACTION AFTER HANDLING LATEX PRODUCTS SUCH RUBBER GLOVES, CONDOMS, DIAPHRAGMS, BALLOONS, SOCKS, OR UNDERWEAR?NO LATEX ALLERGY : HAVE YOU EVER DEVELOPED ANY TYPE OF REACTION DURING OR AFTER DENTAL APPOINTMENT, VAGINAL/RECTAL EXAMINATION, SURGICAL PROCEDURE, OR ANY OTHER EXPOSURE?NO DATE ASKED : 06/02/2019 LATEX RISK : HAVE YOU EVER HAD ANY DIFFICULTY BREATHING OR HIVES AFTER EATING OR HANDLING ANY FRUITS, OR VEGETABLES; SUCH KIWI, BANANAS, STONE FRUITS, OR CHESTNUTSNO LATEX RISK : DO YOU HAVE A PREVIOUS PERSONAL HISTORY OF MORE THAN NINE SURGERIES, SPINA BIFIDA, OR REPEATED CATHERIZATIONS? NO LATEX RISK : ARE YOU FREQUENTLY EXPOSED TO LATEX PRODUCTS IN YOUR OCCUPATION?NO CAFFEINE CAFFEINE USE?YES 1 CUP OF COFFEE DAILY,1 CUP OF TEA DAILY ADVANCE DIRECTIVE ADVANCE DIRECTIVE DISCUSSED WITH PATIENT:YES HCP - EVELYN LYLE [phone] PROTESTANT [id number] ORTHODOX MARITAL STATUS: SINGLE. ALCOHOL SCREENING DID YOU HAVE A DRINK CONTAINING ALCOHOL IN THE PAST YEAR?YES HOW OFTEN DID YOU HAVE SIX OR MORE DRINKS ON ONE OCCASION IN THE PAST YEAR?NEVER (0 POINTS) HOW MANY DRINKS DID YOU HAVE ON A TYPICAL DAY WHEN YOU WERE DRINKING IN THE PAST YEAR?1 OR 2 (0 POINTS) HOW OFTEN DID YOU HAVE A DRINK CONTAINING ALCOHOL IN THE PAST YEAR?TWO TO FOUR TIMES A MONTH (2 POINTS) POINTS2 INTERPRETATIONNEGATIVE OCCUPATION: DISABLED. REVIEWED 12/24/17 1100 LASREVIEWED WITH PATIENT 08/02/18 0956 JS REVIEWED WITH PT 02/25/19 1142 BVREVIEWED WITH PT 05/15/19 0949 BV06/02/19 REVIEWED WITH PT. AD07/23/19 0940 REVIEWED WITH PT BV. HOSPITALIZATION/MAJOR DIAGNOSTIC PROCEDURE SURGERIES [facility] X10 DAYS REVIEW OF SYSTEMS REVIEWED BY: PROVIDER: . CONSTITUTIONAL: ANY CHANGE IN YOUR MEDICAL CONDITION? NO . CHILLS NO . FEVER NO . INFECTION: DO YOU HAVE NEW INFECTIONS? NO . DO YOU HAVE HISTORY OF MRSA? NO . MUSCULOSKELETAL: ANY NEW PATTERNS OF PAIN OR NUMBNESS? YES . GASTROENTEROLOGY: ANY NEW CHANGE IN BOWEL CONTROL? NO . GENITOURINARY: ANY NEW CHANGE IN BLADDER CONTROL? NO . IS THERE A CHANCE YOU COULD BE ? NO . HEMATOLOGY/LYMPH: DO YOU TAKE ANY BLOOD THINNERS? (FOR EXAMPLE- COUMADIN, PLAVIX, AGGRENOX, PLATEL, PRADAXA, OR XARELTO) NO . WHEN WAS YOUR LAST DOSE? DATE: TIME: . NEUROLOGY: HAVE YOU FALLEN IN THE PAST 12 MONTHS? NO . ANY NEW EXTREMITY NUMBNESS OR WEAKNESS? NO . CARDIOLOGY: DO YOU HAVE A PACEMAKER OR DEFIBRILLATOR? NO . RESPIRATORY: HAVE YOU BEEN SICK IN THE PAST WEEK? NO . FEVER NO . FLU LIKE SYMPTOMS? NO . COUGH NO . INTEGUMENTARY: DO YOU HAVE ANY RASHES OR OPEN SORES? NO . ALLERGIC/IMMUNO: ARE YOU ALLERGIC TO IV DYE? NO . ANY NEW ALLERGIES? NO . PSYCHIATRIC: DO YOU HAVE THOUGHTS OF HURTING YOURSELF OR SOMEONE ELSE? NO . ARE YOU ABUSED, NEGLECTED, OR IN AN UNSAFE ENVIRONMENT? NO . ENDOCRINOLOGY: ARE YOU DIABETIC? NO . OTHER: DO YOU NEED ANY PRESCRIPTIONS? NO . IF YES, PLEASE LIST: ____ . ANY NEW PROBLEMS WITH YOUR MEDICATIONS? NO . WHEN DID YOU LAST EAT? 07/22/19 1730 . WHEN DID YOU LAST DRINK? 07/23/19 0430 . WHAT DID YOU LAST DRINK? WATER . NAME OF PERSON DRIVING YOU HOME? [facility] [place] [employer] . DO YOU HAVE ANY OTHER QUESTIONS OR CONCERNS NO . VITAL SIGNS WT 198 LBS, HT 67 IN, BMI 31.01 INDEX, BP 120/90 MM HG, HR 78 /MIN, RR 18 /MIN, TEMP 98.5 F, OXYGEN SAT % 94%, NA INITIALS AW 0939, REVIEWED BY: BV. ASSESSMENTS MYALGIA, OTHER SITE - M79.18 (PRIMARY) PROCEDURES PN TRIGGER POINT INJECTION WITH STEROIDS PRE PROCEDURE DIAGNOSIS 1. MYALGIA 2. PAIN AT BILATERAL SHOULDER AREA AND BILATERAL LUMBAR AREA. POST PROCEDURE DIAGNOSIS 1. MYALGIA 2. PAIN AT BILATERAL SHOULDER AREA AND BILATERAL LUMBAR AREA. PROCEDURE TRIGGER POINT INJECTION AT RIGHT AND LEFT SHOULDER AREA AND RIGHT AND LEFT LUMBAR AREA. SURGEON DR. CONNIE KAUR BLAST FURNACE HELPER NONE ANESTHESIA LOCAL PRE PROCEDURE NOTE THE PATIENT HAS A HISTORY OF CHRONIC PAIN AT THE RIGHT AND LEFT SHOULDER AREA AND RIGHT AND LEFT LUMBAR AREA. I EVALUATED THE PATIENT AND REVIEWED THE CHART. THERE IS EVIDENCE OF BANDS OF TISSUE WITH RESTRICTION OF MOVEMENT AND PRESENCE OF TRIGGER POINT AT THE AFFECTED AREA. I WENT OVER THE RISKS, ALTERNATIVES, AND BENEFITS ASSOCIATED WITH THIS PROCEDURE. THE PATIENT WOULD LIKE TO PROCEED AND GIVES CONSENT TO PERFORM THE PROCEDURE. THE PATIENT DENIES UNEXPLAINABLE WEIGHT LOSS, FEVER, CHILLS, OR NEW CHANGES IN URINARY OR BOWEL CONTROL DESCRIPTION OF PROCEDURE THE PATIENT WAS BROUGHT TO THE PROCEDURE ROOM AND PLACED IN THE SITTING POSITION. THE AREA WAS CLEANED WITH ALCOHOL. THE PROCEDURE WAS DONE USING ASEPTIC STERILE TECHNIQUE. I CHECKED LATERALITY AND THE LEVEL WHERE THE PROCEDURE WAS GOING TO BE PERFORMED WITH THE PATIENT AND THE SUPPORTING STAFF AT THE MOMENT OF THE TIME OUT IN THE PROCEDURE ROOM. USING A 25-GAUGE NEEDLE, TRIGGER POINTS WERE INJECTED AT THE RIGHT AND LEFT SHOULDER AREA AND RIGHT AND LEFT LUMBAR AREA WITH A TOTAL OF 40 ML OF BUPIVACAINE 0.25% AND KENALOG 40 MG. THERE WAS NO EVIDENCE OF BLOOD, PARESTHESIA OR CEREBROSPINAL FLUID DURING THE PROCEDURE. THE PATIENT WAS SENT TO THE RECOVERY ROOM. THE PATIENT WAS MOVING THE EXTREMITIES AND DOING WELL. THERE WAS NO COMPLICATION DURING THE PROCEDURE POST PROCEDURE NOTE THE PATIENT WILL BE SEEN IN A FOLLOW UP IN THE NEXT FEW WEEKS. INSTRUCTIONS WERE GIVEN, QUESTIONS WERE ANSWERED, AND THE PATIENT EXPRESSED UNDERSTANDING AND AGREES WITH THE PLAN. I, HUBER MUNGUIA, DOCUMENTED THE ABOVE INFORMATION ACTING A SCRIBE FOR DR. KAUR. I HAVE REVIEWED THE ABOVE DOCUMENT, WRITTEN BY HUBER ZAMAN AND I VERIFY THAT IT IS ACCURATE. PROCEDURE CODES 78981 INJECT TRIGGER POINTS 3/> DISPOSITION & COMMUNICATION FOLLOW UP 3 WEEKS ELECTRONICALLY SIGNED BY CONNIE KAUR MD, MD ON 07/31/2019 AT 03:15 PM EDT DISCLAIMER : THIS IS A VISIT SUMMARY EXTRACTED FROM THE [employer] CHART. IT IS NOT A COPY OF THE [employer] PROGRESS NOTE. YAMILETH
== END ==
LOC: M PAIN 09:45
PROVIDERS: ATTEND Anesthesiology
DX: M79.18 Myalgia, other site (principal); I10 Essential (primary) hypertension; J45.909 Unspecified asthma, uncomplicated; K21.9 Gastro-esophageal reflux disease without esophagitis; M79.7 Fibromyalgia; M35.3 Polymyalgia rheumatica; M32.9 Systemic lupus erythematosus, unspecified; Z87.891 Personal history of nicotine dependence; Z79.891 Long term (current) use of opiate analgesic; Z79.899 Other long term (current) drug therapy; Z88.2 Allergy status to sulfonamides; Z88.5 Allergy status to narcotic agent
CPT/HCPCS: 20553; J3301

== ENCOUNTER → 2019-09-11 | Outpatient (CLI) | payer MEDICARE, MEDICAID ==
[~2019-09-11] MED LIST changes: -BUPIVACAINE HCL 0.25% 10 ML VIAL As Ordered ONE; -BUPIVACAINE HCL 0.25% 30 ML VIAL As Ordered ONE; -TRIAMCINOLONE ACETONIDE SUSP 40 MG/ML VIAL (J3301) As Ordered ONE; -diazePAM 5 MG TAB As Ordered ONE; -oxyCODONE 5MG TAB As Ordered ONE
--- NOTE | 2019-09-13 02:38 | ECWPNPC ---
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 POST TPI HISTORY OF PRESENT ILLNESS HISTORY OF PRESENT ILLNESS: PAIN THE PATIENT DESCRIBES THE PAIN... 49-YEAR-OLD FEMALE IN FOR POST TPI FOLLOW-UP. SHE FEELS THE PROCEDURE WORKED WELL OVERALL RATING HER PAIN PREPROCEDURE AT A 9 OUT OF 10 AND POSTPROCEDURE AT A 3-4 OUT OF 10 FURTHER STATING THAT SHE RECEIVED PAIN RELIEF AND INCREASED FUNCTIONALITY FOR APPROXIMATELY 2 WEEKS. SHE RATES HER PAIN CURRENTLY AT AN 8 OUT OF 10 AND DESCRIBES IT ACHING, SORE, AND TENDER. SHE FURTHER STATES THAT HER PAIN IS CONTINUOUS. FALL RISK SCREENING: SCREENING :NO FALLS REPORTED IN THE LAST YEAR CURRENT MEDICATIONS TAKING ESTRADIOL 0.5 MG TABLET ORALLY DAILY TAKING NEXIUM 40 MG TABLET 1 TAB ORAL DAILY TAKING PROPRANOLOL HCL 120 MG ORALLY DAILY TAKING PROAIR HFA 108 (90 BASE) MCG/ACT AEROSOL SOLUTION 2 PUFFS NEEDED INHALATION QID PRN TAKING DULOXETINE HCL 30 MG CAPSULE DELAYED RELEASE PARTICLES 60 MG IN AM, 30 MG IN PM ORALLY TWICE DAILY TAKING TURMERIC 500 MG CAPSULE ORALLY DAILY TAKING POTASSIUM 99 MG TABLET 1 TABLET ORALLY ONCE A DAY TAKING MAGNESIUM 250 MG TABLET 1 TABLET ORALLY DAILY TAKING OXYCODONE-ACETAMINOPHEN 5-325 MG TABLET ORALLY MDD2 NEEDED FOR PAIN TAKING PRAMIPEXOLE DIHYDROCHLORIDE 0.125 MG TABLET 1-2 TABLET BEFORE BEDTIME ORALLY ONCE A DAY 3-4 HR BEFORE BEDTIME TAKING PRAZOSIN HCL 5 MG CAPSULE 1 CAPSULE AT BEDTIME ORALLY ONCE A DAY TAKING ALBUTEROL SULFATE (2.5 MG/3ML) 0.083% NEBULIZATION SOLUTION INHALATION TWICE A DAY NEEDED TAKING HYDROXYZINE HCL 25 MG TABLET ORALLY TWICE A DAY NEEDED TAKING LOSARTAN POTASSIUM 25 MG TABLET 1 TABLET ORALLY ONCE A DAY TAKING QUETIAPINE FUMARATE 25 MG TABLET 1 TABLET AT BEDTIME ORALLY ONCE A DAY TAKING VENLAFAXINE HCL 75 MG TABLET 1 TABLET WITH FOOD ORALLY ONCE A DAY NOT-TAKING CYCLOBENZAPRINE HCL 5 MG TABLET 1 TABLET ORALLY 1 TABS IN A.M. , 2-3 TABS IN P.M. NOT-TAKING TRAZODONE HCL 150 MG TABLET 1 TABLET IN AM, 2 IN PM ORALLY NOT-TAKING PREDNISONE 5 MG TABLET 1 TABLET ORALLY DAILY NOT-TAKING OLANZAPINE 5 MG TABLET 1 TABLET ORALLY ONCE A DAY NOT-TAKING FLUOXETINE HCL 20 MG CAPSULE 2 CAPSULE ORALLY BEFORE BEDTIME NOT-TAKING EXCEDRIN MIGRAINE 250-250-65 MG TABLET 2 TABLETS NEEDED ORALLY FOUR TIMES DAILY NEEDED NOT-TAKING STOOL SOFTENER 100 MG CAPSULE 3 CAPSULES NEEDED ORALLY ONCE A DAY NOT-TAKING AMBIEN 10 MG TABLET ORAL AT BEDTIME NOT-TAKING CALCIUM 600 IRON/D 1 TABLET ORAL DAILY NOT-TAKING IBUPROFEN 800 MG TABLET 1 TABLET ORALLY TWO TIMES DAILY NEEDED NOT-TAKING DICLOFENAC SODIUM 75 MG TABLET DELAYED RELEASE 1 TABLET WITH FOOD OR MILK ORALLY TWICE A DAY NOT-TAKING LIDODERM 5 % PATCH 1 PATCH TO SKIN REMOVE AFTER 12 HOURS EXTERNALLY ON 12 HRS OFF 12 HRS TO MID OR LOW BACK NOT-TAKING HYDROCHLOROTHIAZIDE 12.5 37.5 MG TABLET [facility] TRIAMETERENE ORAL DAILY NOT-TAKING LISINOPRIL 10 10 MG TABLET ORAL DAILY NOT-TAKING LAMICTAL 100 MG TABLET 1/2 TAB ORALLY TWICE A DAY MEDICATION LIST REVIEWED AND RECONCILED WITH THE PATIENT PAST MEDICAL HISTORY HYPERTENSION ASTHMA REFLUX DENGERATIVE DISC DISEASE FIBROMYALGIA RADICULOPATHY LUPUS LSE POLYMYALGIA RHEUMATICA RIGHT SHOULDER AND BACK PAIN ALLERGIES MORPHINE SULFATE: ANAPHYLAXIS - ALLERGY BACLOFEN: HIVES - ALLERGY SURGICAL HISTORY PARTIAL HYSTERECTOMY 2004 GALL BLADDER REMOVED 2014 LUMBAR LAMINECTOMY FUSION 12/23/18 FAMILY HISTORY FATHER: MOTHER: ALIVE, DIAGNOSED WITH HYPERTENSION 1 BROTHER(S) , 1 SISTER(S) - HEALTHY. 2 SON(S) , 1 DAUGHTER(S) - HEALTHY. SOCIAL HISTORY GENERAL: TOBACCO USE ARE YOU A:FORMER SMOKER FORMER SMOKER.QUIT X 1MONTH OTHERS AT HOME: NONE. EDUCATION LEVEL OF EDUCATION:NOT FINISHED COLLEGE DIET: REGULAR. LANGUAGE LANGUAGES SPOKEN:GEORGIAN DOMESTIC VIOLENCE HAS THE PATIENT EVER BEEN IN A SITUATION INVOLVING DOMESTIC VIOLENCE?YES DO YOU FEEL SAFE IN YOUR ENVIRONMENT?YES RECREATIONAL DRUG USE DRUG USE?YES EXERCISE: WALKS. 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?NO PAIN CLINIC PFS, CLERGY, PUBLIC HEALTH REFERRALS PFS REFERRAL NEEDED?NO CLERGY REFERRAL NEEDED?NO PUBLIC HEALTH REFERRAL NEEDED?NO WAS THE PROVIDER NOTIFIED OF ANY PERTINENT INFO?YES HAS THE PATIENT BEEN EDUCATED REGARDING HIS/HER PLAN OF CARE?YES HAS THE PATIENT BEEN EDUCATED REGARDING PAIN, THE RISK FOR PAIN, THE IMPORTANCE OF EFFECTIVE PAIN MANAGEMENT, AND THE PAIN ASSESSMENT PROCESS?YES LATEX QUESTIONNAIRE LATEX ALLERGY : HAVE YOU EVER DEVELOPED ANY TYPE OF REACTION AFTER HANDLING LATEX PRODUCTS SUCH RUBBER GLOVES, CONDOMS, DIAPHRAGMS, BALLOONS, SOCKS, OR UNDERWEAR?NO LATEX ALLERGY : HAVE YOU EVER DEVELOPED ANY TYPE OF REACTION DURING OR AFTER DENTAL APPOINTMENT, VAGINAL/RECTAL EXAMINATION, SURGICAL PROCEDURE, OR ANY OTHER EXPOSURE?NO LATEX RISK : HAVE YOU EVER HAD ANY DIFFICULTY BREATHING OR HIVES AFTER EATING OR HANDLING ANY FRUITS, OR VEGETABLES; SUCH KIWI, BANANAS, STONE FRUITS, OR CHESTNUTSNO LATEX RISK : DO YOU HAVE A PREVIOUS PERSONAL HISTORY OF MORE THAN NINE SURGERIES, SPINA BIFIDA, OR REPEATED CATHERIZATIONS? NO LATEX RISK : ARE YOU FREQUENTLY EXPOSED TO LATEX PRODUCTS IN YOUR OCCUPATION?NO DATE ASKED : 06/02/2019 CAFFEINE CAFFEINE USE?YES 1 CUP OF COFFEE DAILY,1 CUP OF TEA DAILY ADVANCE DIRECTIVE ADVANCE DIRECTIVE DISCUSSED WITH PATIENT:YES HCP - EVELYN LYLE [phone] [facility] [id number] ORTHODOX MARITAL STATUS: SINGLE. ALCOHOL SCREENING DID YOU HAVE A DRINK CONTAINING ALCOHOL IN THE PAST YEAR?YES HOW OFTEN DID YOU HAVE SIX OR MORE DRINKS ON ONE OCCASION IN THE PAST YEAR?NEVER (0 POINTS) HOW MANY DRINKS DID YOU HAVE ON A TYPICAL DAY WHEN YOU WERE DRINKING IN THE PAST YEAR?1 OR 2 (0 POINTS) HOW OFTEN DID YOU HAVE A DRINK CONTAINING ALCOHOL IN THE PAST YEAR?TWO TO FOUR TIMES A MONTH (2 POINTS) POINTS2 INTERPRETATIONNEGATIVE OCCUPATION: DISABLED. REVIEWED 12/24/17 1100 LASREVIEWED WITH PATIENT 08/02/18 0956 JS REVIEWED WITH PT 02/25/19 1142 BVREVIEWED WITH PT 05/15/19 0949 BV06/02/19 REVIEWED WITH PT. AD07/23/19 0940 REVIEWED WITH PT BVREVIEWED WITH PATIENT 09/11/19 1125 JS. HOSPITALIZATION/MAJOR DIAGNOSTIC PROCEDURE SURGERIES [facility] X10 DAYS REVIEW OF SYSTEMS REVIEWED BY: PROVIDER: DENEEN EDWARDS . CONSTITUTIONAL: ANY CHANGE IN YOUR MEDICAL CONDITION? YES, POLYMYALGIA . CHILLS NO . FEVER NO . INFECTION: DO YOU HAVE NEW INFECTIONS? NO . DO YOU HAVE HISTORY OF MRSA? NO . MUSCULOSKELETAL: ANY NEW PATTERNS OF PAIN OR NUMBNESS? YES, STATES PAIN WORSENING AND HAS CHANGED RECENTLY - ELECTRIC TYPE FEELING. STATES BLOOD WORK HAS SHOWN A WORSENING OF PAIN CONDITIONS . GASTROENTEROLOGY: ANY NEW CHANGE IN BOWEL CONTROL? NO . GENITOURINARY: ANY NEW CHANGE IN BLADDER CONTROL? NO . IS THERE A CHANCE YOU COULD BE ? NO . HEMATOLOGY/LYMPH: DO YOU TAKE ANY BLOOD THINNERS? (FOR EXAMPLE- COUMADIN, PLAVIX, AGGRENOX, PLATEL, PRADAXA, OR XARELTO) NO . WHEN WAS YOUR LAST DOSE? DATE: TIME: . NEUROLOGY: HAVE YOU FALLEN IN THE PAST 12 MONTHS? NO . ANY NEW EXTREMITY NUMBNESS OR WEAKNESS? NO . CARDIOLOGY: DO YOU HAVE A PACEMAKER OR DEFIBRILLATOR? NO . RESPIRATORY: HAVE YOU BEEN SICK IN THE PAST WEEK? NO . FEVER NO . FLU LIKE SYMPTOMS? NO . COUGH NO . INTEGUMENTARY: DO YOU HAVE ANY RASHES OR OPEN SORES? NO . ALLERGIC/IMMUNO: ARE YOU ALLERGIC TO IV DYE? NO . ANY NEW ALLERGIES? NO . PSYCHIATRIC: DO YOU HAVE THOUGHTS OF HURTING YOURSELF OR SOMEONE ELSE? NO . ARE YOU ABUSED, NEGLECTED, OR IN AN UNSAFE ENVIRONMENT? NO . ENDOCRINOLOGY: ARE YOU DIABETIC? NO . OTHER: DO YOU NEED ANY PRESCRIPTIONS? NO . IF YES, PLEASE LIST: ____ . ANY NEW PROBLEMS WITH YOUR MEDICATIONS? NO . WHEN DID YOU LAST EAT? ____ . WHEN DID YOU LAST DRINK? ____ . WHAT DID YOU LAST DRINK? ____ . NAME OF PERSON DRIVING YOU HOME? ____ . DO YOU HAVE ANY OTHER QUESTIONS OR CONCERNS YES, STATES SHE IS HAVING MORE PAIN - WHAT OTC OR PRESCRIPTION MEDICATIONS CAN SHE TAKE FOR RELIEF? . VITAL SIGNS WT 198.4 LBS, HT 67 IN, BMI 31.07 INDEX, BP 110/75 MM HG, HR 72 /MIN, RR 18 /MIN, TEMP 97.3 F, OXYGEN SAT % 97%, SAFE IN ENV? (Y/N) YES, REVIEWED BY: TEMO. EXAMINATION GENERAL EXAMINATION: GENERALNO ACUTE DISTRESS, WELL NOURISHED AND HYDRATED. PSYCHAPPROPRIATE MOOD AND AFFECT . LUNGS:CLEAR TO AUSCULTATION BILATERALLY, NO WHEEZES, RHONCHI, RALES. HEART:NO MURMURS, REGULAR RATE AND RHYTHM. MUSCULOSKELETAL:POINT TENDER BILATERAL SHOULDERS, SURROUNDING SKIN SHOWS NO ERYTHEMA, ECCHYMOSIS, INCREASED WARMTH, AND/OR SKIN ERUPTIONS NOTED.POINT TENDER ALONG THORACOLUMBAR SPINE SURROUNDING SKIN SHOWS NO ERYTHEMA ECCHYMOSIS, INCREASED WARMTH, AND/OR SKIN ERUPTIONS NOTED.. ASSESSMENTS MYALGIA, OTHER SITE - M79.18 (PRIMARY) TREATMENT MYALGIA, OTHER SITE NOTES: BILATERAL TPI SHOULDERS AND THORACOLUMBAR. CLINICAL NOTES: 49-YEAR-OLD FEMALE IN FOR POST TPI FOLLOW-UP. GIVEN PRESENTING SYMPTOMS AND RESULTS OF PHYSICAL EXAMINATION RECOMMENDED BILATERAL TPI OF THE SHOULDERS AND THORACOLUMBAR REGION WITH POSTPROCEDURAL FOLLOW-UP. PATIENT HAS EXPRESSED UNDERSTANDING OF AND WAS IN AGREEMENT WITH TREATMENT PLAN. GIVEN TIME TO ASK QUESTIONS AND EXPRESS CONCERNS. PREVENTIVE MEDICINE PAIN CLINIC TEACHING: PROCEDURE TEACHING REVIEWED INFORMATION ON TRIGGER POINT INJECTION PROCEDURE WITH PATIENT. ALSO REVIEWED PRE-PROCEDURE INSTRUCTIONS. PATIENT VERBALIZED AN UNDERSTANDING. GABRIELLA FELIZ 09/11/2019 12:02:34 PM > . PROCEDURE CODES FA211 ESTABILISHED PATIENT [facility] CHARGE DISPOSITION & COMMUNICATION FOLLOW UP POSTPROCEDURE (REASON: BILATERAL SHOULDERS AND THORACOLUMBAR) ELECTRONICALLY SIGNED BY OSMANY FOREMAN ON 09/12/2019 AT 09:06 AM EST DISCLAIMER : THIS IS A VISIT SUMMARY EXTRACTED FROM THE [employer] CHART. IT IS NOT A COPY OF THE [employer] PROGRESS NOTE. YAMILETH
== END ==
LOC: M PAIN 11:15
PROVIDERS: ATTEND Family Medicine
DX: M79.18 Myalgia, other site (principal); Z79.899 Other long term (current) drug therapy; Z88.5 Allergy status to narcotic agent

== ENCOUNTER → 2020-01-14 | Outpatient (CLI) | payer MEDICARE, MEDICAID ==
[~2020-01-14] MED LIST changes: +BUPIVACAINE HCL 0.25% 30ML VIAL As Ordered ONE; +CYCL-707 PO; -CYCL10TA PO; +TRIAMCINOLONE ACETONIDE SUSP 40 MG/ML VIAL (J3301) As Ordered ONE; +diazePAM 5 MG TAB As Ordered ONE; +oxyCODONE 5MG TAB As Ordered ONE
--- NOTE | 2020-01-28 03:27 | ECWPNPC ---
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 RIGHT SHOULDER AND BILATERAL THORACIC TPI HISTORY OF PRESENT ILLNESS HISTORY OF PRESENT ILLNESS: PAIN THE PATIENT DESCRIBES THE PAIN... FALL RISK SCREENING: SCREENING :NO FALLS REPORTED IN THE LAST YEAR CURRENT MEDICATIONS TAKING ESTRADIOL 0.5 MG TABLET ORALLY DAILY, NOTES: 01-14-20799 TAKING NEXIUM 40 MG TABLET 1 TAB ORAL DAILY, NOTES: 01-13-202099 TAKING PROPRANOLOL HCL 120 MG ORALLY DAILY, NOTES: 01-14-20799 TAKING TURMERIC 500 MG CAPSULE ORALLY DAILY, NOTES: 01-14-20799 TAKING POTASSIUM 99 MG TABLET 1 TABLET ORALLY ONCE A DAY, NOTES: 01-14-20799 TAKING MAGNESIUM 250 MG TABLET 1 TABLET ORALLY DAILY, NOTES: 01-14-20799 TAKING OXYCODONE-ACETAMINOPHEN 5-325 MG TABLET ORALLY MDD2 NEEDED FOR PAIN, NOTES: 01-12-203199 TAKING PRAZOSIN HCL 5 MG CAPSULE 1 CAPSULE AT BEDTIME ORALLY ONCE A DAY, NOTES: 01-13-202099 TAKING ALBUTEROL SULFATE (2.5 MG/3ML) 0.083% NEBULIZATION SOLUTION INHALATION TWICE A DAY NEEDED, NOTES: NOT LATELY TAKING LOSARTAN POTASSIUM 25 MG TABLET 1 TABLET ORALLY ONCE A DAY, NOTES: 01-14-20799 TAKING QUETIAPINE FUMARATE 25 MG TABLET 1 TABLET AT BEDTIME ORALLY ONCE A DAY, NOTES: 01-13-202099 TAKING VENLAFAXINE HCL 75 MG TABLET 2 TABLET WITH FOOD ORALLY ONCE A DAY TAKING GABAPENTIN 300 MG CAPSULE ORALLY BID NOT-TAKING CYCLOBENZAPRINE HCL 5 MG TABLET 1 TABLET ORALLY 1 TABS IN A.M. , 2-3 TABS IN P.M. NOT-TAKING TRAZODONE HCL 150 MG TABLET 1 TABLET IN AM, 2 IN PM ORALLY NOT-TAKING PREDNISONE 5 MG TABLET 1 TABLET ORALLY DAILY NOT-TAKING OLANZAPINE 5 MG TABLET 1 TABLET ORALLY ONCE A DAY NOT-TAKING FLUOXETINE HCL 20 MG CAPSULE 2 CAPSULE ORALLY BEFORE BEDTIME NOT-TAKING EXCEDRIN MIGRAINE 250-250-65 MG TABLET 2 TABLETS NEEDED ORALLY FOUR TIMES DAILY NEEDED NOT-TAKING STOOL SOFTENER 100 MG CAPSULE 3 CAPSULES NEEDED ORALLY ONCE A DAY NOT-TAKING AMBIEN 10 MG TABLET ORAL AT BEDTIME NOT-TAKING CALCIUM 600 IRON/D 1 TABLET ORAL DAILY NOT-TAKING IBUPROFEN 800 MG TABLET 1 TABLET ORALLY TWO TIMES DAILY NEEDED NOT-TAKING DICLOFENAC SODIUM 75 MG TABLET DELAYED RELEASE 1 TABLET WITH FOOD OR MILK ORALLY TWICE A DAY NOT-TAKING LIDODERM 5 % PATCH 1 PATCH TO SKIN REMOVE AFTER 12 HOURS EXTERNALLY ON 12 HRS OFF 12 HRS TO MID OR LOW BACK NOT-TAKING HYDROCHLOROTHIAZIDE 12.5 37.5 MG TABLET [facility] TRIAMETERENE ORAL DAILY NOT-TAKING LISINOPRIL 10 10 MG TABLET ORAL DAILY NOT-TAKING LAMICTAL 100 MG TABLET 1/2 TAB ORALLY TWICE A DAY NOT-TAKING PROAIR HFA 108 (90 BASE) MCG/ACT AEROSOL SOLUTION 2 PUFFS NEEDED INHALATION QID PRN, NOTES: NOT LATELY NOT-TAKING DULOXETINE HCL 30 MG CAPSULE DELAYED RELEASE PARTICLES 60 MG IN AM, 30 MG IN PM ORALLY TWICE DAILY NOT-TAKING PRAMIPEXOLE DIHYDROCHLORIDE 0.125 MG TABLET 1-2 TABLET BEFORE BEDTIME ORALLY ONCE A DAY 3-4 HR BEFORE BEDTIME NOT-TAKING HYDROXYZINE HCL 25 MG TABLET ORALLY TWICE A DAY NEEDED MEDICATION LIST REVIEWED AND RECONCILED WITH THE PATIENT PAST MEDICAL HISTORY HYPERTENSION ASTHMA REFLUX DENGERATIVE DISC DISEASE FIBROMYALGIA RADICULOPATHY LUPUS LSE POLYMYALGIA RHEUMATICA RIGHT SHOULDER AND BACK PAIN ALLERGIES MORPHINE SULFATE: ANAPHYLAXIS - ALLERGY BACLOFEN: HIVES - ALLERGY SURGICAL HISTORY PARTIAL HYSTERECTOMY 2003 GALL BLADDER REMOVED 2014 LUMBAR LAMINECTOMY FUSION 12/23/18 FAMILY HISTORY FATHER: MOTHER: ALIVE, DIAGNOSED WITH HYPERTENSION 1 BROTHER(S) , 1 SISTER(S) - HEALTHY. 2 SON(S) , 1 DAUGHTER(S) - HEALTHY. SOCIAL HISTORY GENERAL: TOBACCO USE ARE YOU A:FORMER SMOKER FORMER SMOKER.QUIT X 1MONTH OTHERS AT HOME: NONE. EDUCATION LEVEL OF EDUCATION:NOT FINISHED COLLEGE DIET: REGULAR. LANGUAGE LANGUAGES SPOKEN:BAHAMIAN DOMESTIC VIOLENCE HAS THE PATIENT EVER BEEN IN A SITUATION INVOLVING DOMESTIC VIOLENCE?YES DO YOU FEEL SAFE IN YOUR ENVIRONMENT?YES NEW PATIENT PAIN DIARY PATIENT DESCRIBES PAIN :ACHING, SHARP, STABBING FROM 0-10, WHAT LEVEL IS YOUR PAIN TODAY?8 RECREATIONAL DRUG USE DRUG USE?YES EXERCISE: WALKS. 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 PAIN CLINIC PFS, CLERGY, PUBLIC HEALTH REFERRALS PFS REFERRAL NEEDED?NO CLERGY REFERRAL NEEDED?NO PUBLIC HEALTH REFERRAL NEEDED?NO WAS THE PROVIDER NOTIFIED OF ANY PERTINENT INFO?YES HAS THE PATIENT BEEN EDUCATED REGARDING HIS/HER PLAN OF CARE?YES HAS THE PATIENT BEEN EDUCATED REGARDING PAIN, THE RISK FOR PAIN, THE IMPORTANCE OF EFFECTIVE PAIN MANAGEMENT, AND THE PAIN ASSESSMENT PROCESS?YES LATEX QUESTIONNAIRE LATEX ALLERGY : HAVE YOU EVER DEVELOPED ANY TYPE OF REACTION AFTER HANDLING LATEX PRODUCTS SUCH RUBBER GLOVES, CONDOMS, DIAPHRAGMS, BALLOONS, SOCKS, OR UNDERWEAR?NO LATEX ALLERGY : HAVE YOU EVER DEVELOPED ANY TYPE OF REACTION DURING OR AFTER DENTAL APPOINTMENT, VAGINAL/RECTAL EXAMINATION, SURGICAL PROCEDURE, OR ANY OTHER EXPOSURE?NO DATE ASKED : 06/02/2019 LATEX RISK : HAVE YOU EVER HAD ANY DIFFICULTY BREATHING OR HIVES AFTER EATING OR HANDLING ANY FRUITS, OR VEGETABLES; SUCH KIWI, BANANAS, STONE FRUITS, OR CHESTNUTSNO LATEX RISK : DO YOU HAVE A PREVIOUS PERSONAL HISTORY OF MORE THAN NINE SURGERIES, SPINA BIFIDA, OR REPEATED CATHERIZATIONS? NO LATEX RISK : ARE YOU FREQUENTLY EXPOSED TO LATEX PRODUCTS IN YOUR OCCUPATION?NO CAFFEINE CAFFEINE USE?YES 1 CUP OF COFFEE DAILY,1 CUP OF TEA DAILY ADVANCE DIRECTIVE ADVANCE DIRECTIVE DISCUSSED WITH PATIENT:YES HCP - EVELYN LYLE [phone] JAINISM [id number] MANDAEISM MARITAL STATUS: SINGLE. ALCOHOL SCREENING DID YOU HAVE A DRINK CONTAINING ALCOHOL IN THE PAST YEAR?YES HOW OFTEN DID YOU HAVE SIX OR MORE DRINKS ON ONE OCCASION IN THE PAST YEAR?NEVER (0 POINTS) HOW MANY DRINKS DID YOU HAVE ON A TYPICAL DAY WHEN YOU WERE DRINKING IN THE PAST YEAR?1 OR 2 (0 POINTS) HOW OFTEN DID YOU HAVE A DRINK CONTAINING ALCOHOL IN THE PAST YEAR?TWO TO FOUR TIMES A MONTH (2 POINTS) POINTS2 INTERPRETATIONNEGATIVE OCCUPATION: DISABLED. REVIEWED 12/24/17 1100 LASREVIEWED WITH PATIENT 08/02/18 0956 JS REVIEWED WITH PT 02/25/19 1142 BVREVIEWED WITH PT 05/15/19 0949 BV06/02/19 REVIEWED WITH PT. AD07/23/19 0940 REVIEWED WITH PT BVREVIEWED WITH PATIENT 09/11/19 1125 JS. HOSPITALIZATION/MAJOR DIAGNOSTIC PROCEDURE SURGERIES [facility] X10 DAYS REVIEW OF SYSTEMS REVIEWED BY: PROVIDER: . CONSTITUTIONAL: ANY CHANGE IN YOUR MEDICAL CONDITION? NO . CHILLS NO . FEVER NO . INFECTION: DO YOU HAVE NEW INFECTIONS? NO . DO YOU HAVE HISTORY OF MRSA? NO . MUSCULOSKELETAL: ANY NEW PATTERNS OF PAIN OR NUMBNESS? INCREASED IN NECK AND SHOULDERS . GASTROENTEROLOGY: ANY NEW CHANGE IN BOWEL CONTROL? NO . GENITOURINARY: ANY NEW CHANGE IN BLADDER CONTROL? NO . IS THERE A CHANCE YOU COULD BE ? NO . HEMATOLOGY/LYMPH: DO YOU TAKE ANY BLOOD THINNERS? (FOR EXAMPLE- COUMADIN, PLAVIX, AGGRENOX, PLATEL, PRADAXA, OR XARELTO) NO . WHEN WAS YOUR LAST DOSE? DATE: TIME: . NEUROLOGY: HAVE YOU FALLEN IN THE PAST 12 MONTHS? NO . ANY NEW EXTREMITY NUMBNESS OR WEAKNESS? NO . CARDIOLOGY: DO YOU HAVE A PACEMAKER OR DEFIBRILLATOR? NO . RESPIRATORY: HAVE YOU BEEN SICK IN THE PAST WEEK? NO . FEVER NO . FLU LIKE SYMPTOMS? NO . COUGH NO . INTEGUMENTARY: DO YOU HAVE ANY RASHES OR OPEN SORES? NO . ALLERGIC/IMMUNO: ARE YOU ALLERGIC TO IV DYE? NO . ANY NEW ALLERGIES? NO . PSYCHIATRIC: DO YOU HAVE THOUGHTS OF HURTING YOURSELF OR SOMEONE ELSE? NO . ARE YOU ABUSED, NEGLECTED, OR IN AN UNSAFE ENVIRONMENT? NO . ENDOCRINOLOGY: ARE YOU DIABETIC? NO . OTHER: DO YOU NEED ANY PRESCRIPTIONS? NO . IF YES, PLEASE LIST: ____ . ANY NEW PROBLEMS WITH YOUR MEDICATIONS? NO . WHEN DID YOU LAST EAT? ____01-12-20 1800 . WHEN DID YOU LAST DRINK? ____ THIS MORNING WITH . WHAT DID YOU LAST DRINK? ____WATER . NAME OF PERSON DRIVING YOU HOME? ____SAM WITH [employer] . DO YOU HAVE ANY OTHER QUESTIONS OR CONCERNS NO . VITAL SIGNS WT 203.4 LBS, HT 67 IN, BMI 31.85 INDEX, BP 131/84 MM HG, HR 90 /MIN, RR 18 /MIN, TEMP 97.1 F, OXYGEN SAT % 99%, NA INITIALS AW 1006, REVIEWED BY: KG. ASSESSMENTS MYALGIA, OTHER SITE - M79.18 (PRIMARY) PROCEDURES PN TRIGGER POINT INJECTION WITH STEROIDS PRE PROCEDURE DIAGNOSIS 1. MYALGIA 2. PAIN AT RIGHT SHOULDER AREA AND BILATERAL THORACIC AREA. POST PROCEDURE DIAGNOSIS 1. MYALGIA 2. PAIN AT RIGHT SHOULDER AREA AND BILATERAL THORACIC AREA. PROCEDURE TRIGGER POINT INJECTION AT RIGHT SHOULDER AREA AND RIGHT AND LEFT THORACIC AREA. SURGEON DR. CONNIE KAUR SECRET CODE EXPERT NONE ANESTHESIA LOCAL PRE PROCEDURE NOTE THE PATIENT HAS A HISTORY OF CHRONIC PAIN AT THE RIGHT SHOULDER AREA AND RIGHT AND LEFT THORACIC AREA. I EVALUATED THE PATIENT AND REVIEWED THE CHART. THERE IS EVIDENCE OF BANDS OF TISSUE WITH RESTRICTION OF MOVEMENT AND PRESENCE OF TRIGGER POINT AT THE AFFECTED AREA. I WENT OVER THE RISKS, ALTERNATIVES, AND BENEFITS ASSOCIATED WITH THIS PROCEDURE. THE PATIENT WOULD LIKE TO PROCEED AND GIVES CONSENT TO PERFORM THE PROCEDURE. THE PATIENT DENIES UNEXPLAINABLE WEIGHT LOSS, FEVER, CHILLS, OR NEW CHANGES IN URINARY OR BOWEL CONTROL DESCRIPTION OF PROCEDURE THE PATIENT WAS BROUGHT TO THE PROCEDURE ROOM AND PLACED IN THE SITTING POSITION. THE AREA WAS CLEANED WITH ALCOHOL. THE PROCEDURE WAS DONE USING ASEPTIC STERILE TECHNIQUE. I CHECKED LATERALITY AND THE LEVEL WHERE THE PROCEDURE WAS GOING TO BE PERFORMED WITH THE PATIENT AND THE SUPPORTING STAFF AT THE MOMENT OF THE TIME OUT IN THE PROCEDURE ROOM. USING A 25-GAUGE NEEDLE, TRIGGER POINTS WERE INJECTED AT THE RIGHT SHOULDER AREA AND RIGHT AND LEFT THORACIC AREA WITH A TOTAL OF 40 ML OF BUPIVACAINE 0.25% AND KENALOG 40 MG. THERE WAS NO EVIDENCE OF BLOOD, PARESTHESIA OR CEREBROSPINAL FLUID DURING THE PROCEDURE. THE PATIENT WAS SENT TO THE RECOVERY ROOM. THE PATIENT WAS MOVING THE EXTREMITIES AND DOING WELL. THERE WAS NO COMPLICATION DURING THE PROCEDURE POST PROCEDURE NOTE THE PATIENT WILL BE SEEN IN A FOLLOW UP IN THE NEXT FEW WEEKS. I AM LOOKING FOR LONG LASTING PAIN RELIEF FOR THE PATIENT WITH THIS INJECTION. INSTRUCTIONS WERE GIVEN, QUESTIONS WERE ANSWERED, AND THE PATIENT EXPRESSED UNDERSTANDING AND AGREES WITH THE PLAN. I, HUBER MUNGUIA, DOCUMENTED THE ABOVE INFORMATION ACTING A SCRIBE FOR DR. KAUR. I HAVE REVIEWED THE ABOVE DOCUMENT, WRITTEN BY HUBER ZAMAN AND I VERIFY THAT IT IS ACCURATE. PROCEDURE CODES 34468 INJECT TRIGGER POINTS 3/> DISPOSITION & COMMUNICATION FOLLOW UP 3 WEEKS ELECTRONICALLY SIGNED BY CONNIE KAUR MD, MD ON 01/27/2020 AT 04:29 PM EDT DISCLAIMER : THIS IS A VISIT SUMMARY EXTRACTED FROM THE [employer] CHART. IT IS NOT A COPY OF THE [employer] PROGRESS NOTE. [facility]
== END ==
LOC: M PAIN 10:15
PROVIDERS: ATTEND Anesthesiology
DX: M79.18 Myalgia, other site (principal); I10 Essential (primary) hypertension; Z79.891 Long term (current) use of opiate analgesic; Z79.899 Other long term (current) drug therapy; Z87.891 Personal history of nicotine dependence; Z88.5 Allergy status to narcotic agent
CPT/HCPCS: 20553; J3301

== ENCOUNTER → 2020-01-28 | Outpatient (CLI) | payer MEDICAID, OTHER ==
[~2020-01-28] MED LIST changes: -BUPIVACAINE HCL 0.25% 30ML VIAL As Ordered ONE; -CYCL-707 PO; +CYCL10TA PO; -TRIAMCINOLONE ACETONIDE SUSP 40 MG/ML VIAL (J3301) As Ordered ONE; -diazePAM 5 MG TAB As Ordered ONE; -oxyCODONE 5MG TAB As Ordered ONE
--- NOTE | 2020-01-30 02:19 | ECWPNPC ---
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 POST . BILATERAL SHOULDERS AND THORACOLUMBAR. HISTORY OF PRESENT ILLNESS HISTORY OF PRESENT ILLNESS: PAIN THE PATIENT DESCRIBES THE PAINAFTER THE PROCEDURE SEVERITY - PAIN SCORE OF8/10 LOCATIONSMID BACK, LOWER BACK, LUMBAR QUALITYACHING , SORE DURATIONCONTINUOUS, CONSTANT, ALL DAY, MAINLY DURING THE DAY PAIN IS INCREASED BY:PROLONGED STANDING PAIN IS DECREASED BY:USE OF PAIN MEDICATIONS, SITTING PERMISSION REQUESTED AND RECEIVED FROM PATIENT TO PERFORM TELEHEALTH VISIT. 49-YEAR-OLD FEMALE IN FOR POST TPI FOLLOW-UP. SHE DOES ADMIT THE PROCEDURE WAS HELPFUL HOWEVER THE PAIN RELIEF DID NOT LAST SHE RATES HER PAIN PREPROCEDURE AT A 10 OUT OF 10 AND POSTPROCEDURE AT A 2 OUT OF 10 TIMES ONE AND HALF ALMOST 2 WEEKS. SHE RATES HER PAIN CURRENTLY AT AN 8 OUT OF 10 AND DESCRIBES IT ACHING, AND SORE. SHE WOULD LIKE TO DISCUSS A TENS UNIT. FALL RISK SCREENING: SCREENING :NO FALLS REPORTED IN THE LAST YEAR CURRENT MEDICATIONS TAKING ESTRADIOL 0.5 MG TABLET ORALLY DAILY, NOTES: 01-14-20799 TAKING NEXIUM 40 MG TABLET 1 TAB ORAL DAILY, NOTES: 01-13-202099 TAKING PROPRANOLOL HCL 120 MG ORALLY DAILY, NOTES: 01-14-20799 TAKING TURMERIC 500 MG CAPSULE ORALLY DAILY, NOTES: 01-14-20799 TAKING POTASSIUM 99 MG TABLET 1 TABLET ORALLY ONCE A DAY, NOTES: 01-14-20799 TAKING MAGNESIUM 250 MG TABLET 1 TABLET ORALLY DAILY, NOTES: 01-14-20799 TAKING OXYCODONE-ACETAMINOPHEN 5-325 MG TABLET ORALLY MDD2 NEEDED FOR PAIN, NOTES: 01-12-203199 TAKING PRAZOSIN HCL 5 MG CAPSULE 1 CAPSULE AT BEDTIME ORALLY ONCE A DAY, NOTES: 01-13-202099 TAKING ALBUTEROL SULFATE (2.5 MG/3ML) 0.083% NEBULIZATION SOLUTION INHALATION TWICE A DAY NEEDED, NOTES: NOT LATELY TAKING LOSARTAN POTASSIUM 25 MG TABLET 1 TABLET ORALLY ONCE A DAY, NOTES: 01-14-20799 TAKING QUETIAPINE FUMARATE 25 MG TABLET 1 TABLET AT BEDTIME ORALLY ONCE A DAY, NOTES: 01-13-20 2100 TAKING VENLAFAXINE HCL 75 MG TABLET 2 TABLET WITH FOOD ORALLY ONCE A DAY TAKING GABAPENTIN 300 MG CAPSULE ORALLY BID NOT-TAKING CYCLOBENZAPRINE HCL 5 MG TABLET 1 TABLET ORALLY 1 TABS IN A.M. , 2-3 TABS IN P.M. NOT-TAKING TRAZODONE HCL 150 MG TABLET 1 TABLET IN AM, 2 IN PM ORALLY NOT-TAKING PREDNISONE 5 MG TABLET 1 TABLET ORALLY DAILY NOT-TAKING OLANZAPINE 5 MG TABLET 1 TABLET ORALLY ONCE A DAY NOT-TAKING FLUOXETINE HCL 20 MG CAPSULE 2 CAPSULE ORALLY BEFORE BEDTIME NOT-TAKING EXCEDRIN MIGRAINE 250-250-65 MG TABLET 2 TABLETS NEEDED ORALLY FOUR TIMES DAILY NEEDED NOT-TAKING STOOL SOFTENER 100 MG CAPSULE 3 CAPSULES NEEDED ORALLY ONCE A DAY NOT-TAKING AMBIEN 10 MG TABLET ORAL AT BEDTIME NOT-TAKING CALCIUM 600 IRON/D 1 TABLET ORAL DAILY NOT-TAKING IBUPROFEN 800 MG TABLET 1 TABLET ORALLY TWO TIMES DAILY NEEDED NOT-TAKING DICLOFENAC SODIUM 75 MG TABLET DELAYED RELEASE 1 TABLET WITH FOOD OR MILK ORALLY TWICE A DAY NOT-TAKING LIDODERM 5 % PATCH 1 PATCH TO SKIN REMOVE AFTER 12 HOURS EXTERNALLY ON 12 HRS OFF 12 HRS TO MID OR LOW BACK NOT-TAKING HYDROCHLOROTHIAZIDE 12.5 37.5 MG TABLET [facility] TRIAMETERENE ORAL DAILY NOT-TAKING LISINOPRIL 10 10 MG TABLET ORAL DAILY NOT-TAKING LAMICTAL 100 MG TABLET 1/2 TAB ORALLY TWICE A DAY NOT-TAKING PROAIR HFA 108 (90 BASE) MCG/ACT AEROSOL SOLUTION 2 PUFFS NEEDED INHALATION QID PRN, NOTES: NOT LATELY NOT-TAKING DULOXETINE HCL 30 MG CAPSULE DELAYED RELEASE PARTICLES 60 MG IN AM, 30 MG IN PM ORALLY TWICE DAILY NOT-TAKING PRAMIPEXOLE DIHYDROCHLORIDE 0.125 MG TABLET 1-2 TABLET BEFORE BEDTIME ORALLY ONCE A DAY 3-4 HR BEFORE BEDTIME NOT-TAKING HYDROXYZINE HCL 25 MG TABLET ORALLY TWICE A DAY NEEDED MEDICATION LIST REVIEWED AND RECONCILED WITH THE PATIENT PAST MEDICAL HISTORY HYPERTENSION ASTHMA REFLUX DENGERATIVE DISC DISEASE FIBROMYALGIA RADICULOPATHY LUPUS LSE POLYMYALGIA RHEUMATICA RIGHT SHOULDER AND BACK PAIN ALLERGIES MORPHINE SULFATE: ANAPHYLAXIS - ALLERGY BACLOFEN: HIVES - ALLERGY SURGICAL HISTORY PARTIAL HYSTERECTOMY 2004 GALL BLADDER REMOVED 2014 LUMBAR LAMINECTOMY FUSION 12/23/18 HOSPITALIZATION/MAJOR DIAGNOSTIC PROCEDURE SURGERIES [facility] X10 DAYS REVIEW OF SYSTEMS REVIEWED BY: PROVIDER: DENEEN LÓPEZ COUNSELLORS-C . CONSTITUTIONAL: ANY CHANGE IN YOUR MEDICAL CONDITION? NO . CHILLS NO . FEVER NO . INFECTION: DO YOU HAVE NEW INFECTIONS? NO . DO YOU HAVE HISTORY OF MRSA? NO . MUSCULOSKELETAL: ANY NEW PATTERNS OF PAIN OR NUMBNESS? NO . GASTROENTEROLOGY: ANY NEW CHANGE IN BOWEL CONTROL? NO . GENITOURINARY: ANY NEW CHANGE IN BLADDER CONTROL? NO . IS THERE A CHANCE YOU COULD BE ? NO . HEMATOLOGY/LYMPH: DO YOU TAKE ANY BLOOD THINNERS? (FOR EXAMPLE- COUMADIN, PLAVIX, AGGRENOX, PLATEL, PRADAXA, OR XARELTO) NO . WHEN WAS YOUR LAST DOSE? DATE: TIME: . NEUROLOGY: HAVE YOU FALLEN IN THE PAST 12 MONTHS? NO . ANY NEW EXTREMITY NUMBNESS OR WEAKNESS? NO . CARDIOLOGY: DO YOU HAVE A PACEMAKER OR DEFIBRILLATOR? NO . RESPIRATORY: HAVE YOU BEEN SICK IN THE PAST WEEK? NO . FEVER NO . FLU LIKE SYMPTOMS? NO . COUGH NO . INTEGUMENTARY: DO YOU HAVE ANY RASHES OR OPEN SORES? NO . ALLERGIC/IMMUNO: ARE YOU ALLERGIC TO IV DYE? NO . ANY NEW ALLERGIES? NO . PSYCHIATRIC: DO YOU HAVE THOUGHTS OF HURTING YOURSELF OR SOMEONE ELSE? NO . ARE YOU ABUSED, NEGLECTED, OR IN AN UNSAFE ENVIRONMENT? NO . ENDOCRINOLOGY: ARE YOU DIABETIC? NO . OTHER: DO YOU NEED ANY PRESCRIPTIONS? NO . IF YES, PLEASE LIST: ____ . ANY NEW PROBLEMS WITH YOUR MEDICATIONS? NO . WHEN DID YOU LAST EAT? ____ . WHEN DID YOU LAST DRINK? ____ . WHAT DID YOU LAST DRINK? ____ . NAME OF PERSON DRIVING YOU HOME? ____ . DO YOU HAVE ANY OTHER QUESTIONS OR CONCERNS YES, PT WANTS TO DISCUSS TENS UNIT IF THAT WILL HELP WITH THE PAIN . EXAMINATION GENERAL EXAMINATION: PSYCH ORIENTED X 3, APPROPRIATE MOOD AND AFFECT. ASSESSMENTS MYALGIA, OTHER SITE - M79.18 (PRIMARY) TREATMENT MYALGIA, OTHER SITE CLINICAL NOTES: 49-YEAR-OLD FEMALE IN FOR POST TPI FOLLOW-UP. 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 GIVEN PRESENTING SYMPTOMS RECOMMEND FOLLOW-UP IN ONE MONTH. PATIENT HAS EXPRESSED UNDERSTANDING OF AND WAS IN AGREEMENT WITH TREATMENT PLAN. GIVEN TIME TO ASK QUESTIONS AND EXPRESS CONCERNS. DISPOSITION & COMMUNICATION FOLLOW UP 4 WEEKS (REASON: BACK PAIN) ELECTRONICALLY SIGNED BY OSMANY FOREMAN ON 01/29/2020 AT 09:50 AM EDT DISCLAIMER : THIS IS A VISIT SUMMARY EXTRACTED FROM THE [employer] CHART. IT IS NOT A COPY OF THE [employer] PROGRESS NOTE. YAMILETH
== END ==
LOC: M PAIN 10:15
PROVIDERS: ATTEND Family Medicine
DX: M79.18 Myalgia, other site (principal); I10 Essential (primary) hypertension; J45.909 Unspecified asthma, uncomplicated; K21.9 Gastro-esophageal reflux disease without esophagitis; Z88.5 Allergy status to narcotic agent; Z88.8 Allergy status to other drugs, medicaments and biological substances; Z79.899 Other long term (current) drug therapy

== ENCOUNTER → 2020-02-25 | Outpatient (CLI) | payer MEDICAID, OTHER ==
[~2020-02-25] MED LIST changes: +ASCO250T20 PO; +CALC-212 PO; -CALC600T7 PO; +CYCL-707 PO; -CYCL10TA PO; -LISI-542 PO; +LISI-898 PO; +LISI10TA22 PO; -LISI10TA4 PO; -VITA1TAB23 PO
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
== END ==
LOC: M PAIN 10:15 → M TMPAIN 10:15
PROVIDERS: ATTEND Family Medicine
DX: M51.17 Intervertebral disc disorders with radiculopathy, lumbosacral region (principal); I10 Essential (primary) hypertension; Z79.891 Long term (current) use of opiate analgesic; Z79.899 Other long term (current) drug therapy; Z88.5 Allergy status to narcotic agent; Z88.8 Allergy status to other drugs, medicaments and biological substances

== ENCOUNTER → 2020-04-26 | Outpatient (CLI) | payer OTHER, MEDICAID ==
[~2020-04-26] MED LIST changes: -ASCO250T20 PO; -CALC-212 PO; +CALC600T7 PO; +LISI-542 PO; -LISI-898 PO; -LISI10TA22 PO; +LISI10TA4 PO; +VITA1TAB23 PO
--- NOTE | 2020-04-28 00:26 | ECWPNPC ---
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 BACK PAIN IN CLINIC HISTORY OF PRESENT ILLNESS GENERAL: - 50-YEAR-OLD FEMALE IN FOR CHRONIC PAIN FOLLOW-UP. SHE RATES HER PAIN CURRENTLY AT AN 8 OUT OF 10 AND DESCRIBES IT ACHING, CONTINUOUS, AND THROBBING. PATIENT DOES ADMIT TO A NEW DIAGNOSIS OF POLYMYALGIA RHEUMATICA. PATIENT HAS HAD TRIGGER POINT INJECTIONS IN THE PAST AND FOUND THEM HELPFUL. FALL RISK SCREENING: SCREENING :NO FALLS REPORTED IN THE LAST YEAR PAIN SCREENING: PATIENT HAS A COMPLAINT OF ACUTE OR CHRONIC PAIN :YES LOCATION OF PAIN:UPPER BACK, MID BACK, LOW BACK INTENSITY OF PAIN (SCALE OF 1 TO 10):8 WHAT DOES YOUR PAIN FEEL LIKE:ACHING, CONTINOUS, THROBBING DURATION:CONTINOUS, CONSTANT, ALL DAY PAIN IS INCREASED BY:ACTIVITIES, PROLONGED STANDING PAIN IS DECREASED BY:USE OF PAIN MEDICATIONS TENS UNIT, OXYCODONE PAIN HAS INTERFERED WITH THE FOLLOWING:MOOD, HOUSEWORK, RELATIONSHIP WITH OTHERS, ENJOYMENT OF LIFE PLAN/GOALS/TREATMENT/INTERVENTION/FOLLOW UP:SEE PLAN NURSING NOTE: -. PAIN CENTER INTAKE QUESTIONS: DO YOU HAVE A HISTORY OF MRSA? :NO DO YOU TAKE A BLOOD THINNERS? :NO DO YOU HAVE ANY BLEEDING DISORDERS? :NO ANY NEW NUMBNESS OR WEAKNESS IN YOUR LEGS OR ARMS? :NO ANY PACEMAKER,DEFIBRILLATOR, OR DORSAL COLUMN STIMULATOR? :NO DO YOU HAVE ANY RASHES OR OPEN SORES? :NO ARE YOU ALLERGIC TO IV DYE? :NO ARE YOU DIABETIC? :NO ANY NEW PROBLEMS WITH YOUR MEDICATIONS? :NO HAVE YOU RECEIVED A VACCINE IN THE PAST 30 DAYS? :NO DO YOU PLAN TO RECEIVE A VACCINE IN THE NEXT 21 DAYS? :NO DO YOU NEED ANY PRESCRIPTION? :NO DO YOU TAKE ANY IMMUNOSUPPRESSIVE MEDICATIONS? :NO IS THERE A CHANCE YOU COULD BE ? :NO ARE YOU BREAST FEEDING? :NO CURRENT MEDICATIONS TAKING ESTRADIOL 0.5 MG TABLET ORALLY DAILY, NOTES: 01-14-20799 TAKING NEXIUM 40 MG TABLET 1 TAB ORAL DAILY, NOTES: 01-13-20 2100 TAKING PROPRANOLOL HCL 120 MG ORALLY DAILY, NOTES: 01-14-20799 TAKING TURMERIC 500 MG CAPSULE ORALLY DAILY, NOTES: 01-14-20799 TAKING POTASSIUM 99 MG TABLET 1 TABLET ORALLY ONCE A DAY, NOTES: 01-14-20799 TAKING MAGNESIUM 250 MG TABLET 1 TABLET ORALLY DAILY, NOTES: 01-14-20799 TAKING OXYCODONE-ACETAMINOPHEN 5-325 MG TABLET ORALLY MDD2 NEEDED FOR PAIN, NOTES: 01-12-203199 TAKING ALBUTEROL SULFATE (2.5 MG/3ML) 0.083% NEBULIZATION SOLUTION INHALATION TWICE A DAY NEEDED, NOTES: NOT LATELY TAKING LOSARTAN POTASSIUM 25 MG TABLET 1 TABLET ORALLY ONCE A DAY, NOTES: 01-14-20799 TAKING QUETIAPINE FUMARATE 25 MG TABLET 1 TABLET AT BEDTIME ORALLY ONCE A DAY, NOTES: 01-13-202099 TAKING VENLAFAXINE HCL 75 MG TABLET 2 TABLET WITH FOOD ORALLY ONCE A DAY NOT-TAKING PRAZOSIN HCL 5 MG CAPSULE 1 CAPSULE AT BEDTIME ORALLY ONCE A DAY, NOTES: 01-13-202099 NOT-TAKING GABAPENTIN 300 MG CAPSULE ORALLY BID NOT-TAKING CYCLOBENZAPRINE HCL 5 MG TABLET 1 TABLET ORALLY 1 TABS IN A.M. , 2-3 TABS IN P.M. NOT-TAKING TRAZODONE HCL 150 MG TABLET 1 TABLET IN AM, 2 IN PM ORALLY NOT-TAKING PREDNISONE 5 MG TABLET 1 TABLET ORALLY DAILY NOT-TAKING OLANZAPINE 5 MG TABLET 1 TABLET ORALLY ONCE A DAY NOT-TAKING FLUOXETINE HCL 20 MG CAPSULE 2 CAPSULE ORALLY BEFORE BEDTIME NOT-TAKING EXCEDRIN MIGRAINE 250-250-65 MG TABLET 2 TABLETS NEEDED ORALLY FOUR TIMES DAILY NEEDED NOT-TAKING STOOL SOFTENER 100 MG CAPSULE 3 CAPSULES NEEDED ORALLY ONCE A DAY NOT-TAKING AMBIEN 10 MG TABLET ORAL AT BEDTIME NOT-TAKING CALCIUM 600 IRON/D 1 TABLET ORAL DAILY NOT-TAKING IBUPROFEN 800 MG TABLET 1 TABLET ORALLY TWO TIMES DAILY NEEDED NOT-TAKING DICLOFENAC SODIUM 75 MG TABLET DELAYED RELEASE 1 TABLET WITH FOOD OR MILK ORALLY TWICE A DAY NOT-TAKING LIDODERM 5 % PATCH 1 PATCH TO SKIN REMOVE AFTER 12 HOURS EXTERNALLY ON 12 HRS OFF 12 HRS TO MID OR LOW BACK NOT-TAKING HYDROCHLOROTHIAZIDE 12.5 37.5 MG TABLET W[facility] TRIAMETERENE ORAL DAILY NOT-TAKING LISINOPRIL 10 10 MG TABLET ORAL DAILY NOT-TAKING LAMICTAL 100 MG TABLET 1/2 TAB ORALLY TWICE A DAY NOT-TAKING PROAIR HFA 108 (90 BASE) MCG/ACT AEROSOL SOLUTION 2 PUFFS NEEDED INHALATION QID PRN, NOTES: NOT LATELY NOT-TAKING DULOXETINE HCL 30 MG CAPSULE DELAYED RELEASE PARTICLES 60 MG IN AM, 30 MG IN PM ORALLY TWICE DAILY NOT-TAKING PRAMIPEXOLE DIHYDROCHLORIDE 0.125 MG TABLET 1-2 TABLET BEFORE BEDTIME ORALLY ONCE A DAY 3-4 HR BEFORE BEDTIME NOT-TAKING HYDROXYZINE HCL 25 MG TABLET ORALLY TWICE A DAY NEEDED MEDICATION LIST REVIEWED AND RECONCILED WITH THE PATIENT PAST MEDICAL HISTORY HYPERTENSION ASTHMA REFLUX DENGERATIVE DISC DISEASE FIBROMYALGIA RADICULOPATHY LUPUS LSE POLYMYALGIA RHEUMATICA RIGHT SHOULDER AND BACK PAIN ALLERGIES MORPHINE SULFATE: ANAPHYLAXIS - ALLERGY BACLOFEN: HIVES - ALLERGY SURGICAL HISTORY PARTIAL HYSTERECTOMY 2003 GALL BLADDER REMOVED 2014 LUMBAR LAMINECTOMY FUSION 12/23/18 FAMILY HISTORY FATHER: MOTHER: ALIVE, DIAGNOSED WITH HYPERTENSION 1 BROTHER(S) , 1 SISTER(S) - HEALTHY. 2 SON(S) , 1 DAUGHTER(S) - HEALTHY. SOCIAL HISTORY GENERAL: TOBACCO USE ARE YOU A:FORMER SMOKER FORMER SMOKER.QUIT X 1MONTH LATEX QUESTIONNAIRE LATEX ALLERGY : HAVE YOU EVER DEVELOPED ANY TYPE OF REACTION AFTER HANDLING LATEX PRODUCTS SUCH RUBBER GLOVES, CONDOMS, DIAPHRAGMS, BALLOONS, SOCKS, OR UNDERWEAR?NO LATEX ALLERGY : HAVE YOU EVER DEVELOPED ANY TYPE OF REACTION DURING OR AFTER DENTAL APPOINTMENT, VAGINAL/RECTAL EXAMINATION, SURGICAL PROCEDURE, OR ANY OTHER EXPOSURE?NO LATEX RISK : HAVE YOU EVER HAD ANY DIFFICULTY BREATHING OR HIVES AFTER EATING OR HANDLING ANY FRUITS, OR VEGETABLES; SUCH KIWI, BANANAS, STONE FRUITS, OR CHESTNUTSNO LATEX RISK : DO YOU HAVE A PREVIOUS PERSONAL HISTORY OF MORE THAN NINE SURGERIES, SPINA BIFIDA, OR REPEATED CATHERIZATIONS? NO LATEX RISK : ARE YOU FREQUENTLY EXPOSED TO LATEX PRODUCTS IN YOUR OCCUPATION?NO DATE ASKED : 04/26/2020 ALCOHOL SCREENING DID YOU HAVE A DRINK CONTAINING ALCOHOL IN THE PAST YEAR?YES HOW OFTEN DID YOU HAVE SIX OR MORE DRINKS ON ONE OCCASION IN THE PAST YEAR?NEVER (0 POINTS) HOW MANY DRINKS DID YOU HAVE ON A TYPICAL DAY WHEN YOU WERE DRINKING IN THE PAST YEAR?1 OR 2 (0 POINTS) HOW OFTEN DID YOU HAVE A DRINK CONTAINING ALCOHOL IN THE PAST YEAR?TWO TO FOUR TIMES A MONTH (2 POINTS) POINTS2 INTERPRETATIONNEGATIVE RECREATIONAL DRUG USE DRUG USE?YES CAFFEINE CAFFEINE USE?YES 1 CUP OF COFFEE DAILY,1 CUP OF TEA DAILY JAIN [id number] PRESYB[employer]ERIAN LANGUAGE LANGUAGES SPOKEN:ZAMBIAN EDUCATION LEVEL OF EDUCATION:NOT FINISHED COLLEGE 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 DEVICES?YES :CANE CHARTER BOAT OPERATOR NEEDED?NO DOMESTIC VIOLENCE HAS THE PATIENT EVER BEEN IN A SITUATION INVOLVING DOMESTIC VIOLENCE?YES DO YOU FEEL SAFE IN YOUR ENVIRONMENT?YES OCCUPATION: DISABLED. DIET: REGULAR. EXERCISE: WALKS. MARITAL STATUS: SINGLE. OTHERS AT HOME: NONE. NEW PATIENT PAIN DIARY PATIENT DESCRIBES PAIN :ACHING, SHARP, STABBING FROM 0-10, WHAT LEVEL IS YOUR PAIN TODAY?8 PAIN CLINIC PFS, CLERGY, PUBLIC HEALTH REFERRALS PFS REFERRAL NEEDED?NO CLERGY REFERRAL NEEDED?NO PUBLIC HEALTH REFERRAL NEEDED?NO WAS THE PROVIDER NOTIFIED OF ANY PERTINENT INFO?YES HAS THE PATIENT BEEN EDUCATED REGARDING HIS/HER PLAN OF CARE?YES HAS THE PATIENT BEEN EDUCATED REGARDING PAIN, THE RISK FOR PAIN, THE IMPORTANCE OF EFFECTIVE PAIN MANAGEMENT, AND THE PAIN ASSESSMENT PROCESS?YES ADVANCE DIRECTIVE ADVANCE DIRECTIVE DISCUSSED WITH PATIENT:YES HCP - EVELYN LYLE [phone] HOSPITALIZATION/MAJOR DIAGNOSTIC PROCEDURE SURGERIES [facility] X10 DAYS REVIEW OF SYSTEMS CONSTITUTIONAL: ANY RECENT FEVER NO . CHILLS NO . WEIGHT CHANGE OF UNKNOWN REASONS NO . GASTROENTEROLOGY: NEW UNEXPLAINABLE CHANGES IN BOWEL CONTROL NO . CONSTIPATION NO . GENITOURINARY: ANY NEW CHANGE IN BLADDER CONTROL? NO . NEUROLOGY: NEW ONSET DIZZINESS OR NEUROLOGICAL CHANGES NOT MENTIONED NO . NEW NUMBNESS OR PAIN PATTERNS NOT MENTIONED AND PERTINENT TO TODAY'S VISIT NO . CARDIOLOGY: NEW CHEST PRESSURE NO . NEW CHEST PAIN NO . RESPIRATORY: UNEXPLAINABLE COUGH NO . NEW SHORTNESS OF BREATH NO . VITAL SIGNS WT 201.2 LBS, HT 67 IN, BMI 31.51 INDEX, BP 132/81 MM HG, HR 89 /MIN, RR 18 /MIN, TEMP 97.4 F, OXYGEN SAT % 95%, SAFE IN ENV? (Y/N) YES, NA INITIALS AW [id number] ASUMADU ANIMAL KEEPER HEAD. EXAMINATION GENERAL EXAMINATION: GENERALNO ACUTE DISTRESS, WELL NOURISHED AND HYDRATED. PSYCHAPPROPRIATE MOOD AND AFFECT . LUNGS:CLEAR TO AUSCULTATION BILATERALLY, NO WHEEZES, RHONCHI, RALES. HEART:NO MURMURS, REGULAR RATE AND RHYTHM. MUSCULOSKELETAL:POINT TENDER BILATERAL SHOULDER AND LOW BACK, SURROUNDING SKIN SHOWS NO ERYTHEMA, ECCHYMOSIS, INCREASED WARMTH, AND/OR SKIN ERUPTIONS NOTED. BANDS OF RESTRICTIVE TISSUE NOTED OVER TRIGGER POINTS. . ASSESSMENTS MYALGIA, OTHER SITE - M79.18 (PRIMARY) TREATMENT MYALGIA, OTHER SITE NOTES: BILATERAL SHOULDER AND LOW BACK TPI TPI EDUCATION PROVIDED MARY EDWARDS. CLINICAL NOTES: 50-YEAR-OLD FEMALE IN FOR CHRONIC PAIN FOLLOW-UP. GIVEN PRESENTING SYMPTOMS AND RESULTS OF PHYSICAL EXAMINATION RECOMMENDED BILATERAL SHOULDER AND LOW BACK TRIGGER POINT INJECTIONS WITH POSTPROCEDURAL FOLLOW-UP. PATIENT HAS EXPRESSED UNDERSTANDING OF AND WAS IN AGREEMENT WITH TREATMENT PLAN. GIVEN TIME TO ASK QUESTIONS AND EXPRESS CONCERNS. . PROCEDURE CODES FA211 ESTABILISHED PATIENT [facility] FACILITY CHARGE DISPOSITION & COMMUNICATION FOLLOW UP POSTPROCEDURE (REASON: BILATERAL SHOULDER AND LOW BACK TPI) ELECTRONICALLY SIGNED BY OSMANY FOREMAN ON 04/27/2020 AT 08:02 AM EDT DISCLAIMER : THIS IS A VISIT SUMMARY EXTRACTED FROM THE [employer] CHART. IT IS NOT A COPY OF THE [employer] PROGRESS NOTE. YAMILETH
== END ==
LOC: M PAIN 10:15
PROVIDERS: ATTEND Family Medicine
DX: M79.18 Myalgia, other site (principal)

== ENCOUNTER → 2020-05-09 | Outpatient (CLI) | payer OTHER, MEDICAID ==
[~2020-05-09] MED LIST changes: +ASCO250T20 PO; +CALC-212 PO; -CALC600T7 PO; -VITA1TAB23 PO
== END ==
LOC: M LABSMTC 08:50
PROVIDERS: ATTEND Anesthesiology
DX: Z11.59 Encounter for screening for other viral diseases (principal); Z20.828 Contact with and (suspected) exposure to other viral communicable diseases
CPT/HCPCS: C9803; U0003

== ENCOUNTER → 2020-05-28 | Outpatient (CLI) | payer OTHER, MEDICAID | LOC: M PAIN 08:30 | PROVIDERS: ATTEND Family Medicine | DX: M79.18 Myalgia, other site (principal) ==

== ENCOUNTER → 2020-08-09 | Outpatient (CLI) | payer MEDICARE, MEDICAID ==
--- NOTE | 2020-08-10 16:21 | ECWPNPC ---
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 BACK HISTORY OF PRESENT ILLNESS GENERAL: 50-YEAR-OLD FEMALE IN FOR CHRONIC PAIN FOLLOW-UP. SHE RATES HER PAIN CURRENTLY AT AN 8 OUT OF 10 AND DESCRIBES IT ACHING, TENDER, AND THROBBING. PATIENT HAS HAD BILATERAL SHOULDER AND LOW BACK TRIGGER POINT INJECTIONS IN THE PAST WITH GOOD RESULTS AND WE WILL DISCUSS REPEAT PROCEDURES TODAY. -. FALL RISK SCREENING: SCREENING :TWO OR MORE FALLS WITHOUT INJURY IN THE PAST YEAR HAD 3 FALLS THIS MONTH, PATIENT DID NOT SEEK MEDICAL TREATMENT. PAIN SCREENING: PATIENT HAS A COMPLAINT OF ACUTE OR CHRONIC PAIN :YES LOCATION OF PAIN:LOW BACK INTENSITY OF PAIN (SCALE OF 1 TO 10):8 WHAT DOES YOUR PAIN FEEL LIKE:ACHING, TENDER, THROBBING DURATION:CONTINOUS, CONSTANT, AWAKENS FROM SLEEP PAIN IS INCREASED BY:ACTIVITIES, PROLONGED STANDING PAIN IS DECREASED BY:USE OF PAIN MEDICATIONS, OTHERS PATIENT STATES USING A BACK BRACE HELPS TO REDUCE PAIN. NURSING NOTE: -. PAIN CENTER INTAKE QUESTIONS: DO YOU HAVE A HISTORY OF MRSA? :NO DO YOU TAKE A BLOOD THINNERS? :NO DO YOU HAVE ANY BLEEDING DISORDERS? :NO ANY NEW NUMBNESS OR WEAKNESS IN YOUR LEGS OR ARMS? :NO ANY PACEMAKER,DEFIBRILLATOR, OR DORSAL COLUMN STIMULATOR? :NO DO YOU HAVE ANY RASHES OR OPEN SORES? :NO ARE YOU ALLERGIC TO IV DYE? :NO ARE YOU DIABETIC? :NO ANY NEW PROBLEMS WITH YOUR MEDICATIONS? :NO HAVE YOU RECEIVED A VACCINE IN THE PAST 30 DAYS? :NO PATIENT GOT A FLU SHOT 1 MONTH AGO. DO YOU PLAN TO RECEIVE A VACCINE IN THE NEXT 21 DAYS? :NO DO YOU NEED ANY PRESCRIPTION? :NO DO YOU TAKE ANY IMMUNOSUPPRESSIVE MEDICATIONS? :NO IS THERE A CHANCE YOU COULD BE ? :NO ARE YOU BREAST FEEDING? :NO CURRENT MEDICATIONS TAKING ESTRADIOL 0.5 MG TABLET ORALLY DAILY, NOTES: 05/14 630 TAKING NEXIUM 40 MG TABLET 1 TAB ORAL DAILY, NOTES: 05/13 1900 TAKING TURMERIC 500 MG CAPSULE ORALLY DAILY, NOTES: 05/13 800 TAKING POTASSIUM 99 MG TABLET 1 TABLET ORALLY ONCE A DAY, NOTES: 05/13 800 TAKING MAGNESIUM 250 MG TABLET 1 TABLET ORALLY DAILY, NOTES: 05/13 800 TAKING OXYCODONE-ACETAMINOPHEN 5-325 MG TABLET ORALLY MDD2 NEEDED FOR PAIN, NOTES: 05/11 TAKING ALBUTEROL SULFATE (2.5 MG/3ML) 0.083% NEBULIZATION SOLUTION INHALATION TWICE A DAY NEEDED, NOTES: > 3 WEEKS TAKING LOSARTAN POTASSIUM 25 MG TABLET 1 TABLET ORALLY ONCE A DAY, NOTES: 05/14 630 TAKING QUETIAPINE FUMARATE 25 MG TABLET 1 TABLET AT BEDTIME ORALLY ONCE A DAY, NOTES: 05/13 2030 TAKING VENLAFAXINE HCL 75 MG TABLET 2 TABLET WITH FOOD ORALLY ONCE A DAY, NOTES: 05/14 700 TAKING PRASCION 50MG TAB 1 TABLET ORALLY DAILY NOT-TAKING PROPRANOLOL HCL 120 MG ORALLY DAILY NOT-TAKING PRAZOSIN HCL 5 MG CAPSULE 1 CAPSULE AT BEDTIME ORALLY ONCE A DAY, NOTES: 01-13-202099 NOT-TAKING GABAPENTIN 300 MG CAPSULE ORALLY BID NOT-TAKING CYCLOBENZAPRINE HCL 5 MG TABLET 1 TABLET ORALLY 1 TABS IN A.M. , 2-3 TABS IN P.M. NOT-TAKING TRAZODONE HCL 150 MG TABLET 1 TABLET IN AM, 2 IN PM ORALLY NOT-TAKING PREDNISONE 5 MG TABLET 1 TABLET ORALLY DAILY NOT-TAKING OLANZAPINE 5 MG TABLET 1 TABLET ORALLY ONCE A DAY NOT-TAKING FLUOXETINE HCL 20 MG CAPSULE 2 CAPSULE ORALLY BEFORE BEDTIME NOT-TAKING EXCEDRIN MIGRAINE 250-250-65 MG TABLET 2 TABLETS NEEDED ORALLY FOUR TIMES DAILY NEEDED NOT-TAKING STOOL SOFTENER 100 MG CAPSULE 3 CAPSULES NEEDED ORALLY ONCE A DAY NOT-TAKING AMBIEN 10 MG TABLET ORAL AT BEDTIME NOT-TAKING CALCIUM 600 IRON/D 1 TABLET ORAL DAILY NOT-TAKING IBUPROFEN 800 MG TABLET 1 TABLET ORALLY TWO TIMES DAILY NEEDED NOT-TAKING DICLOFENAC SODIUM 75 MG TABLET DELAYED RELEASE 1 TABLET WITH FOOD OR MILK ORALLY TWICE A DAY NOT-TAKING LIDODERM 5 % PATCH 1 PATCH TO SKIN REMOVE AFTER 12 HOURS EXTERNALLY ON 12 HRS OFF 12 HRS TO MID OR LOW BACK NOT-TAKING HYDROCHLOROTHIAZIDE 12.5 37.5 MG TABLET WIH TRIAMETERENE ORAL DAILY NOT-TAKING LISINOPRIL 10 10 MG TABLET ORAL DAILY NOT-TAKING LAMICTAL 100 MG TABLET 1/2 TAB ORALLY TWICE A DAY NOT-TAKING PROAIR HFA 108 (90 BASE) MCG/ACT AEROSOL SOLUTION 2 PUFFS NEEDED INHALATION QID PRN, NOTES: NOT LATELY NOT-TAKING DULOXETINE HCL 30 MG CAPSULE DELAYED RELEASE PARTICLES 60 MG IN AM, 30 MG IN PM ORALLY TWICE DAILY NOT-TAKING PRAMIPEXOLE DIHYDROCHLORIDE 0.125 MG TABLET 1-2 TABLET BEFORE BEDTIME ORALLY ONCE A DAY 3-4 HR BEFORE BEDTIME NOT-TAKING HYDROXYZINE HCL 25 MG TABLET ORALLY TWICE A DAY NEEDED MEDICATION LIST REVIEWED AND RECONCILED WITH THE PATIENT PAST MEDICAL HISTORY HYPERTENSION ASTHMA REFLUX DENGERATIVE DISC DISEASE FIBROMYALGIA RADICULOPATHY LUPUS LSE POLYMYALGIA RHEUMATICA RIGHT SHOULDER AND BACK PAIN ALLERGIES MORPHINE SULFATE: ANAPHYLAXIS - ALLERGY BACLOFEN: HIVES - ALLERGY SURGICAL HISTORY PARTIAL HYSTERECTOMY 2003 GALL BLADDER REMOVED 2014 LUMBAR LAMINECTOMY FUSION 12/23/18 FAMILY HISTORY FATHER: MOTHER: ALIVE, DIAGNOSED WITH HYPERTENSION 1 BROTHER(S) , 1 SISTER(S) - HEALTHY. 2 SON(S) , 1 DAUGHTER(S) - HEALTHY. SOCIAL HISTORY GENERAL: TOBACCO USE ARE YOU A:FORMER SMOKER FORMER SMOKER.QUIT X 1MONTH LATEX QUESTIONNAIRE LATEX ALLERGY : HAVE YOU EVER DEVELOPED ANY TYPE OF REACTION AFTER HANDLING LATEX PRODUCTS SUCH RUBBER GLOVES, CONDOMS, DIAPHRAGMS, BALLOONS, SOCKS, OR UNDERWEAR?NO LATEX ALLERGY : HAVE YOU EVER DEVELOPED ANY TYPE OF REACTION DURING OR AFTER DENTAL APPOINTMENT, VAGINAL/RECTAL EXAMINATION, SURGICAL PROCEDURE, OR ANY OTHER EXPOSURE?NO LATEX RISK : HAVE YOU EVER HAD ANY DIFFICULTY BREATHING OR HIVES AFTER EATING OR HANDLING ANY FRUITS, OR VEGETABLES; SUCH KIWI, BANANAS, STONE FRUITS, OR CHESTNUTSNO LATEX RISK : DO YOU HAVE A PREVIOUS PERSONAL HISTORY OF MORE THAN NINE SURGERIES, SPINA BIFIDA, OR REPEATED CATHERIZATIONS? NO LATEX RISK : ARE YOU FREQUENTLY EXPOSED TO LATEX PRODUCTS IN YOUR OCCUPATION?NO DATE ASKED : 08/09/2020 ALCOHOL SCREENING DID YOU HAVE A DRINK CONTAINING ALCOHOL IN THE PAST YEAR?YES HOW OFTEN DID YOU HAVE SIX OR MORE DRINKS ON ONE OCCASION IN THE PAST YEAR?NEVER (0 POINTS) HOW MANY DRINKS DID YOU HAVE ON A TYPICAL DAY WHEN YOU WERE DRINKING IN THE PAST YEAR?1 OR 2 (0 POINTS) HOW OFTEN DID YOU HAVE A DRINK CONTAINING ALCOHOL IN THE PAST YEAR?TWO TO FOUR TIMES A MONTH (2 POINTS) POINTS2 INTERPRETATIONNEGATIVE RECREATIONAL DRUG USE DRUG USE?YES CAFFEINE CAFFEINE USE?YES 1 CUP OF COFFEE DAILY,1 CUP OF TEA DAILY DRUZE [id number] FAITH LANGUAGE LANGUAGES SPOKEN:LUXEMBOURGER EDUCATION LEVEL OF EDUCATION:NOT FINISHED COLLEGE 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 DEVICES?YES :CANE BACK HAND NEEDED?NO DOMESTIC VIOLENCE HAS THE PATIENT EVER BEEN IN A SITUATION INVOLVING DOMESTIC VIOLENCE?YES DO YOU FEEL SAFE IN YOUR ENVIRONMENT?YES OCCUPATION: DISABLED. DIET: REGULAR. EXERCISE: WALKS. MARITAL STATUS: SINGLE. OTHERS AT HOME: NONE. PAIN CLINIC PFS, CLERGY, PUBLIC HEALTH REFERRALS PFS REFERRAL NEEDED?NO CLERGY REFERRAL NEEDED?NO PUBLIC HEALTH REFERRAL NEEDED?NO WAS THE PROVIDER NOTIFIED OF ANY PERTINENT INFO?YES HAS THE PATIENT BEEN EDUCATED REGARDING HIS/HER PLAN OF CARE?YES HAS THE PATIENT BEEN EDUCATED REGARDING PAIN, THE RISK FOR PAIN, THE IMPORTANCE OF EFFECTIVE PAIN MANAGEMENT, AND THE PAIN ASSESSMENT PROCESS?YES ADVANCE DIRECTIVE ADVANCE DIRECTIVE DISCUSSED WITH PATIENT:YES [facility] - EVELYN LYLE [phone] HOSPITALIZATION/MAJOR DIAGNOSTIC PROCEDURE SURGERIES [facility] X10 DAYS REVIEW OF SYSTEMS CONSTITUTIONAL: ANY RECENT FEVER NO . CHILLS NO . WEIGHT CHANGE OF UNKNOWN REASONS NO . GASTROENTEROLOGY: NEW UNEXPLAINABLE CHANGES IN BOWEL CONTROL NO . CONSTIPATION NO . GENITOURINARY: ANY NEW CHANGE IN BLADDER CONTROL? NO . NEUROLOGY: NEW ONSET DIZZINESS OR NEUROLOGICAL CHANGES NOT MENTIONED NO . NEW NUMBNESS OR PAIN PATTERNS NOT MENTIONED AND PERTINENT TO TODAY'S VISIT NO . CARDIOLOGY: NEW CHEST PRESSURE NO . NEW CHEST PAIN NO . RESPIRATORY: UNEXPLAINABLE COUGH NO . NEW SHORTNESS OF BREATH NO . VITAL SIGNS WT 200.0 LBS, HT 67 IN, BMI 31.32 INDEX, BP 118/77 MM HG, HR 102 /MIN, RR 18 /MIN, TEMP 97.1 F, OXYGEN SAT % 96%, SAFE IN ENV? (Y/N) YES, NA INITIALS AW 1123, REVIEWED BY: DM. EXAMINATION GENERAL EXAMINATION: GENERALNO ACUTE DISTRESS, WELL NOURISHED AND HYDRATED. PSYCHAPPROPRIATE MOOD AND AFFECT . LUNGS:CLEAR TO AUSCULTATION BILATERALLY, NO WHEEZES, RHONCHI, RALES. HEART:NO MURMURS, REGULAR RATE AND RHYTHM. BACK:POINT TENDER BILATERAL SHOULDERS AND LOW BACK, SURROUNDING SKIN SHOWS NO ERYTHEMA, ECCHYMOSIS, INCREASED WARMTH, AND/OR SKIN ERUPTIONS NOTED. BANDS OF RESTRICTIVE TISSUE NOTED OVER TRIGGER POINTS . ASSESSMENTS MYALGIA, OTHER SITE - M79.18 (PRIMARY) TREATMENT MYALGIA, OTHER SITE NOTES: BILATERAL SHOULDER AND LOW BACK TRIGGER POINT INJECTIONS. CLINICAL NOTES: 50-YEAR-OLD FEMALE IN FOR CHRONIC PAIN FOLLOW-UP. GIVEN PRESENTING SYMPTOMS AND RESULTS OF PHYSICAL EXAMINATION RECOMMENDED TPI OF THE LOW BACK AND SHOULDERS BILATERALLY. PATIENT WILL FOLLOW-UP POST PROCEDURE. PATIENT HAS EXPRESSED UNDERSTANDING OF AND WAS IN AGREEMENT WITH TREATMENT PLAN. GIVEN TIME TO ASK QUESTIONS AND EXPRESS CONCERNS. PREVENTIVE MEDICINE PAIN CLINIC TEACHING: THE PATIENT HAS BEEN EDUCATED REGARDING PAIN, THE RISK FOR PAIN, THE IMPORTANCE OF EFFECTIVE PAIN MANAGEMENT, AND THE PAIN ASSESSMENT PROCESS. : DISCUSSED PRE PROCEDURE INSTRUCTIONS, PATIENT CARE PLAN, AND TEACHING FOR: BILATERAL SHOULDER AND LOWER BACK TRIGGER POINT INJECTIONS. PATIENT VERBALIZES UNDERSTANDING. PROCEDURE CODES FA211 ESTABILISHED PATIENT [facility] FACILITY CHARGE DISPOSITION & COMMUNICATION FOLLOW UP POSTPROCEDURE (REASON: BILATERAL SHOULDER AND LOW BACK TRIGGER POINT INJECTIONS) ELECTRONICALLY SIGNED BY OSMANY FOREMAN ON 08/10/2020 AT 03:11 PM EDT DISCLAIMER : THIS IS A VISIT SUMMARY EXTRACTED FROM THE [employer] CHART. IT IS NOT A COPY OF THE [employer] PROGRESS NOTE. YAMILETH
== END ==
LOC: M PAIN 11:00
PROVIDERS: ATTEND Family Medicine
DX: M79.18 Myalgia, other site (principal); I10 Essential (primary) hypertension; J45.909 Unspecified asthma, uncomplicated; K21.9 Gastro-esophageal reflux disease without esophagitis; M79.7 Fibromyalgia; Z87.891 Personal history of nicotine dependence; Z88.5 Allergy status to narcotic agent; Z88.8 Allergy status to other drugs, medicaments and biological substances; Z79.899 Other long term (current) drug therapy

== ENCOUNTER → 2020-08-22 | Outpatient (CLI) | payer OTHER, MEDICAID | LOC: M LABSMTC 10:02 | PROVIDERS: ATTEND Anesthesiology | DX: U07.1 COVID-19 (principal) | CPT/HCPCS: C9803; U0003 ==

== ENCOUNTER → 2020-08-27 | Outpatient (CLI) | payer OTHER, MEDICAID ==
[~2020-08-27] MED LIST changes: +BUPIVACAINE HCL 0.25% 10ML VIAL As Ordered ONE; +BUPIVACAINE HCL 0.25% 30ML VIAL As Ordered ONE; +TRIAMCINOLONE ACETONIDE SUSP 40 MG/ML VIAL (J3301) As Ordered ONE; +diazePAM 5 MG TAB As Ordered ONE; +oxyCODONE 5MG TAB As Ordered ONE
--- NOTE | 2020-09-01 02:21 | ECWPNPC ---
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 BILATERAL SHOULDER AND LOW BACK TRIGGER POINT INJECTIONS HISTORY OF PRESENT ILLNESS PAIN CENTER INTAKE QUESTIONS: DO YOU HAVE A HISTORY OF MRSA? :NO DO YOU TAKE A BLOOD THINNERS? :NO DO YOU HAVE ANY BLEEDING DISORDERS? :NO ANY NEW NUMBNESS OR WEAKNESS IN YOUR LEGS OR ARMS? :NO ANY PACEMAKER,DEFIBRILLATOR, OR DORSAL COLUMN STIMULATOR? :NO DO YOU HAVE ANY RASHES OR OPEN SORES? :NO ARE YOU ALLERGIC TO IV DYE? :NO ARE YOU DIABETIC? :NO ANY NEW PROBLEMS WITH YOUR MEDICATIONS? :NO HAVE YOU RECEIVED A VACCINE IN THE PAST 30 DAYS? :NO DO YOU PLAN TO RECEIVE A VACCINE IN THE NEXT 21 DAYS? :NO DO YOU NEED ANY PRESCRIPTION? :NO DO YOU TAKE ANY IMMUNOSUPPRESSIVE MEDICATIONS? :NO ANY HISTORY OF SEIZURES? :NO ANY HISTORY OF CARDIAC ISSUES OR EVENTS? :NO DO YOU HAVE SLEEP APNEA? :YES DO YOU WEAR A CPAP?YES ANY RECENT HEAD INJURY? :NO DO YOU HAVE ANY NEW INFECTIONS? :NO IS THERE A CHANCE YOU COULD BE ? :NO ARE YOU BREAST FEEDING? :NO WHEN DID YOU LAST EAT? : 08/26/2020 1500 WHEN DID YOU LAST DRINK? : 08/27/2020 0700 WHAT DID YOU LAST DRINK? : WATER NAME OF PERSON DRIVING YOU HOME? : [employer] GENERAL: -. FALL RISK SCREENING: SCREENING :NO FALLS REPORTED IN THE LAST YEAR PAIN SCREENING: PATIENT HAS A COMPLAINT OF ACUTE OR CHRONIC PAIN :YES LOCATION OF PAIN:BOTH SHOULDERS, MID BACK, LOW BACK INTENSITY OF PAIN (SCALE OF 1 TO 10):8 WHAT DOES YOUR PAIN FEEL LIKE:CONTINOUS, STABBING DURATION:CONTINOUS PAIN IS INCREASED BY:ACTIVITIES, PROLONGED STANDING PAIN IS DECREASED BY:OTHERS BACK BRACE, HEATING PAD, TENS UNIT NURSING NOTE: -. CURRENT MEDICATIONS TAKING ESTRADIOL 0.5 MG TABLET ORALLY DAILY, NOTES: 08/27/2020 0700 TAKING NEXIUM 40 MG TABLET 1 TAB ORAL DAILY, NOTES: 08/26/2020 2030 TAKING OXYCODONE-ACETAMINOPHEN 5-325 MG TABLET ORALLY MDD2 NEEDED FOR PAIN, NOTES: 08/26/20202099 TAKING ALBUTEROL SULFATE (2.5 MG/3ML) 0.083% NEBULIZATION SOLUTION INHALATION TWICE A DAY NEEDED, NOTES: > 3 WEEKS TAKING LOSARTAN POTASSIUM 25 MG TABLET 1 TABLET ORALLY ONCE A DAY, NOTES: 08/27/2020699 TAKING QUETIAPINE FUMARATE 25 MG TABLET 1 TABLET AT BEDTIME ORALLY ONCE A DAY, NOTES: 08/26/20202029 TAKING VENLAFAXINE HCL 75 MG TABLET 2 TABLET WITH FOOD ORALLY ONCE A DAY, NOTES: 08/27/2020699 TAKING PRASCION 50MG TAB 1 TABLET ORALLY DAILY, NOTES: 08/26/20202029 TAKING TOPIRAMATE 25 MG TABLET 1 CAP ORALLY BID, NOTES: 08/27/2020699 TAKING SUMATRIPTAN SUCCINATE 50 MG TABLET 1 TABLET AT LEAST 2 HOURS BETWEEN DOSES NEEDED ORALLY TWICE A DAY, NOTES: PRN NOT-TAKING TURMERIC 500 MG CAPSULE ORALLY DAILY NOT-TAKING POTASSIUM 99 MG TABLET 1 TABLET ORALLY ONCE A DAY NOT-TAKING MAGNESIUM 250 MG TABLET 1 TABLET ORALLY DAILY NOT-TAKING PROPRANOLOL HCL 120 MG ORALLY DAILY NOT-TAKING PRAZOSIN HCL 5 MG CAPSULE 1 CAPSULE AT BEDTIME ORALLY ONCE A DAY, NOTES: 01-13-202099 NOT-TAKING GABAPENTIN 300 MG CAPSULE ORALLY BID NOT-TAKING CYCLOBENZAPRINE HCL 5 MG TABLET 1 TABLET ORALLY 1 TABS IN A.M. , 2-3 TABS IN P.M. NOT-TAKING TRAZODONE HCL 150 MG TABLET 1 TABLET IN AM, 2 IN PM ORALLY NOT-TAKING PREDNISONE 5 MG TABLET 1 TABLET ORALLY DAILY NOT-TAKING OLANZAPINE 5 MG TABLET 1 TABLET ORALLY ONCE A DAY NOT-TAKING FLUOXETINE HCL 20 MG CAPSULE 2 CAPSULE ORALLY BEFORE BEDTIME NOT-TAKING EXCEDRIN MIGRAINE 250-250-65 MG TABLET 2 TABLETS NEEDED ORALLY FOUR TIMES DAILY NEEDED NOT-TAKING STOOL SOFTENER 100 MG CAPSULE 3 CAPSULES NEEDED ORALLY ONCE A DAY NOT-TAKING AMBIEN 10 MG TABLET ORAL AT BEDTIME NOT-TAKING CALCIUM 600 IRON/D 1 TABLET ORAL DAILY NOT-TAKING IBUPROFEN 800 MG TABLET 1 TABLET ORALLY TWO TIMES DAILY NEEDED NOT-TAKING DICLOFENAC SODIUM 75 MG TABLET DELAYED RELEASE 1 TABLET WITH FOOD OR MILK ORALLY TWICE A DAY NOT-TAKING LIDODERM 5 % PATCH 1 PATCH TO SKIN REMOVE AFTER 12 HOURS EXTERNALLY ON 12 HRS OFF 12 HRS TO MID OR LOW BACK NOT-TAKING HYDROCHLOROTHIAZIDE 12.5 37.5 MG TABLET WIH TRIAMETERENE ORAL DAILY NOT-TAKING LISINOPRIL 10 10 MG TABLET ORAL DAILY NOT-TAKING LAMICTAL 100 MG TABLET 1/2 TAB ORALLY TWICE A DAY NOT-TAKING PROAIR HFA 108 (90 BASE) MCG/ACT AEROSOL SOLUTION 2 PUFFS NEEDED INHALATION QID PRN, NOTES: NOT LATELY NOT-TAKING DULOXETINE HCL 30 MG CAPSULE DELAYED RELEASE PARTICLES 60 MG IN AM, 30 MG IN PM ORALLY TWICE DAILY NOT-TAKING PRAMIPEXOLE DIHYDROCHLORIDE 0.125 MG TABLET 1-2 TABLET BEFORE BEDTIME ORALLY ONCE A DAY 3-4 HR BEFORE BEDTIME NOT-TAKING HYDROXYZINE HCL 25 MG TABLET ORALLY TWICE A DAY NEEDED MEDICATION LIST REVIEWED AND RECONCILED WITH THE PATIENT PAST MEDICAL HISTORY HYPERTENSION ASTHMA REFLUX DENGERATIVE DISC DISEASE FIBROMYALGIA RADICULOPATHY LUPUS LSE POLYMYALGIA RHEUMATICA RIGHT SHOULDER AND BACK PAIN ALLERGIES MORPHINE SULFATE: ANAPHYLAXIS - ALLERGY BACLOFEN: HIVES - ALLERGY SURGICAL HISTORY PARTIAL HYSTERECTOMY 2003 GALL BLADDER REMOVED 2014 LUMBAR LAMINECTOMY FUSION 12/23/18 FAMILY HISTORY FATHER: MOTHER: ALIVE, DIAGNOSED WITH HYPERTENSION 1 BROTHER(S) , 1 SISTER(S) - HEALTHY. 2 SON(S) , 1 DAUGHTER(S) - HEALTHY. SOCIAL HISTORY GENERAL: TOBACCO USE ARE YOU A:FORMER SMOKER FORMER SMOKER.QUIT X 1MONTH LATEX QUESTIONNAIRE LATEX ALLERGY : HAVE YOU EVER DEVELOPED ANY TYPE OF REACTION AFTER HANDLING LATEX PRODUCTS SUCH RUBBER GLOVES, CONDOMS, DIAPHRAGMS, BALLOONS, SOCKS, OR UNDERWEAR?NO LATEX ALLERGY : HAVE YOU EVER DEVELOPED ANY TYPE OF REACTION DURING OR AFTER DENTAL APPOINTMENT, VAGINAL/RECTAL EXAMINATION, SURGICAL PROCEDURE, OR ANY OTHER EXPOSURE?NO LATEX RISK : HAVE YOU EVER HAD ANY DIFFICULTY BREATHING OR HIVES AFTER EATING OR HANDLING ANY FRUITS, OR VEGETABLES; SUCH KIWI, BANANAS, STONE FRUITS, OR CHESTNUTSNO LATEX RISK : DO YOU HAVE A PREVIOUS PERSONAL HISTORY OF MORE THAN NINE SURGERIES, SPINA BIFIDA, OR REPEATED CATHERIZATIONS? NO LATEX RISK : ARE YOU FREQUENTLY EXPOSED TO LATEX PRODUCTS IN YOUR OCCUPATION?NO DATE ASKED : 08/24/2020 ALCOHOL SCREENING DID YOU HAVE A DRINK CONTAINING ALCOHOL IN THE PAST YEAR?YES HOW OFTEN DID YOU HAVE SIX OR MORE DRINKS ON ONE OCCASION IN THE PAST YEAR?NEVER (0 POINTS) HOW MANY DRINKS DID YOU HAVE ON A TYPICAL DAY WHEN YOU WERE DRINKING IN THE PAST YEAR?1 OR 2 (0 POINTS) HOW OFTEN DID YOU HAVE A DRINK CONTAINING ALCOHOL IN THE PAST YEAR?TWO TO FOUR TIMES A MONTH (2 POINTS) POINTS2 INTERPRETATIONNEGATIVE RECREATIONAL DRUG USE DRUG USE?YES CAFFEINE CAFFEINE USE?YES 1 CUP OF COFFEE DAILY,1 CUP OF TEA DAILY BUDDHIST [id number] MORMONISM LANGUAGE LANGUAGES SPOKEN:KINYARWANDA EDUCATION LEVEL OF EDUCATION:NOT FINISHED COLLEGE 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 DEVICES?YES :CANE MOLD PREPARER NEEDED?NO DOMESTIC VIOLENCE HAS THE PATIENT EVER BEEN IN A SITUATION INVOLVING DOMESTIC VIOLENCE?YES DO YOU FEEL SAFE IN YOUR ENVIRONMENT?YES OCCUPATION: DISABLED. DIET: REGULAR. EXERCISE: WALKS. MARITAL STATUS: SINGLE. OTHERS AT HOME: NONE. PAIN CLINIC PFS, CLERGY, PUBLIC HEALTH REFERRALS PFS REFERRAL NEEDED?NO CLERGY REFERRAL NEEDED?NO PUBLIC HEALTH REFERRAL NEEDED?NO WAS THE PROVIDER NOTIFIED OF ANY PERTINENT INFO?YES HAS THE PATIENT BEEN EDUCATED REGARDING HIS/HER PLAN OF CARE?YES HAS THE PATIENT BEEN EDUCATED REGARDING PAIN, THE RISK FOR PAIN, THE IMPORTANCE OF EFFECTIVE PAIN MANAGEMENT, AND THE PAIN ASSESSMENT PROCESS?YES ADVANCE DIRECTIVE ADVANCE DIRECTIVE DISCUSSED WITH PATIENT:YES HCP - EVELYN LYLE [phone] HOSPITALIZATION/MAJOR DIAGNOSTIC PROCEDURE SURGERIES [facility] X10 DAYS VITAL SIGNS WT 197.8 LBS, HT 67 IN, BMI 30.98 INDEX, BP 113/72 MM HG, HR 95 /MIN, RR 18 /MIN, TEMP 96.5 F, OXYGEN SAT % 96%, SAFE IN ENV? (Y/N) YES, NA INITIALS AW 0921, REVIEWED BY: JASON WILEY RN. EXAMINATION GENERAL EXAMINATION: THE PATIENT IS ALERT, ORIENTED TIMES THREE AND COOPERATIVE. HEART SHOWS REGULAR RHYTHM, NO MURMURS AND NO GALLOPS. LUNGS ARE CLEAR TO AUSCULTATION. ASSESSMENTS MYALGIA - M79.1 (PRIMARY) TREATMENT MYALGIA MEDICATION: VALIUM TAB 10MG ORALLY (DIAZEPAM)RONNIE READ 08/27/2020 9:48:47 AM > VERIFIED AUDREY FONG 08/27/2020 9:51:11 AM > LOT NUMBER [id number] EXP 02/09 HETALAUDREY 08/27/2020 9:53:36 AM > ADMINISTERED MEDICATION: OXYCODONE HCL TAB 10MG ORALLYRONNIE READ 08/27/2020 9:49:03 AM > VERIFIED AUDREY FONG 08/27/2020 9:51:44 AM > LOT NUMBER [id number] EXP 11/2021 AUDREY FONG 08/27/2020 9:53:50 AM > ADMINISTERED OTHERS NOTES: PRE PROCEDURE PHONE CALL COMPLETED 08/24/2020 0941 Jermain WILEY RN. PROCEDURES PAIN NURSING RECORD PRE-PROCEDURE IV SITE N/A, PRE-PROCEDURE ORAL MEDICATIONS VALIUM 10 MG PO AND OXYCODONE 10 MG PO ADMINISTERED AT 0953 BY Jermain WILEY LIGHTING FIXTURE INSTALLER IN ROOM 0909, PHYSICIAN IN ROOM 1007, START 1010, FINISH 1014, PHYSICIAN OUT OF ROOM 1014, OUT OF ROOM 1032, STEROID KENALOG, O2 RA, ECG N/A, PATIENT SHIELDED NO, SAFETY STRAP NO, PREP ALCOHOL BY DR KAUR, IV INFUSED N/A, DRESSING TEGADERM BY Jermain WILEY RN LOC: AUDREY FONG 08/27/2020 1000 , 1. ALERT, ORIENTED RESP: AUDREY FONG 08/27/2020 1000 , 1. REGULAR, NO DYSPNEA COLOR: AUDREY FONG 08/27/2020 1000, 1. PINK SKIN: AUDREY FONG 08/27/2020 1000 , 1. WARM, DRY POSITION: AUDREY FONG 08/27/2020 1000 , 4. OTHER-SITTING VITALS: AUDREY FONG 1035 101/56/92-18-100% DISCHARGE: POST PAIN 7 MID BACK AND LOW BACK, DRESSING SITE DRY AND INTACT MID BACK AND LOW BACK, IV N/A, GAIT STEADY, TEACHING COMPLETED, PATIENT ACKNOWLEDGES UNDERSTANDING YES PATIENT VERBALIZES UNDERSTANDING OF DISCHARGE INSTRUCTIONS REVIEWED, PATIENT DISCHARGED AT 1037 PN TRIGGER POINT INJECTION WITH STEROIDS PRE PROCEDURE DIAGNOSIS 1. MYALGIA 2. PAIN AT BILATERAL SHOULDER AREA AND BILATERAL LOWER BACK AREA POST PROCEDURE DIAGNOSIS 1. MYALGIA 2. PAIN AT BILATERAL SHOULDER AREA AND BILATERAL LOWER BACK AREA PROCEDURE TRIGGER POINT INJECTION AT BILATERAL SHOULDER AREA AND BILATERAL LOWER BACK SURGEON DR. 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 I EVALUATED THE PATIENT AND REVIEWED THE CHART. THERE IS EVIDENCE OF BANDS OF TISSUE WITH RESTRICTION OF MOVEMENT AND PRESENCE OF TRIGGER POINT AT THE RIGHT AND LEFT SHOULDER AREA AND RIGHT AND LEFT LOWER BACK AREA. I WENT OVER THE RISKS, ALTERNATIVES, AND BENEFITS ASSOCIATED WITH THIS PROCEDURE. I DISCUSSED THAT THE USE OF STEROIDS MAY CONTRIBUTE TO IMMUNOSUPPRESSION OF THE PATIENT'S BODY AGAINST INFECTIONS SUCH COVID-19. THE PATIENT IS AWARE OF THE POTENTIAL COMPLICATIONS ASSOCIATED WITH THIS VIRUS, INCLUDING, BUT NOT LIMITED TO, . THE PATIENT WOULD LIKE TO PROCEED AND GIVE CONSENT TO PERFORMED THE PROCEDURE. THE PATIENT DENIES UNEXPLAINABLE WEIGHT LOSS, FEVER, CHILLS, OR NEW CHANGES IN URINARY OR BOWEL CONTROL DESCRIPTION OF PROCEDURE THE PATIENT WAS BROUGHT TO THE PROCEDURE ROOM AND PLACED IN THE SITTING POSITION. THE AREA WAS CLEANED WITH ALCOHOL. THE PROCEDURE WAS DONE USING ASEPTIC STERILE TECHNIQUE. A TIMEOUT WAS PERFORMED WHERE LATERALITY AND THE SITE OF THE PROCEDURE WERE CHECKED AND CONFIRMED WITH EVERYONE IN THE ROOM. USING A 25-GAUGE NEEDLE, TRIGGER POINTS WERE INJECTED AT THE RIGHT AND LEFT SHOULDER AREA AND RIGHT AND LEFT LOWER BACK AREA WITH A TOTAL OF 40 ML OF BUPIVACAINE 0.25% AND KENALOG 40 MG. THE MEDICATIONS WERE VERIFIED WITH THE NURSE. THERE WAS NO EVIDENCE OF BLOOD OR PARESTHESIA DURING THE PROCEDURE. THE PATIENT WAS SENT TO THE RECOVERY ROOM. THE PATIENT WAS MOVING THE EXTREMITIES AND DOING WELL. THERE WERE NO COMPLICATIONS DURING THE PROCEDURE. ESTIMATED BLOOD LOSS WAS LESS THAN 5 ML POST PROCEDURE NOTE THE PROCEDURE DONE WAS DISCUSSED WITH THE PATIENT. THE PATIENT WILL BE SEEN IN A FOLLOW UP IN THE NEXT FEW WEEKS. I AM LOOKING FOR LONG LASTING PAIN RELIEF FOR THE PATIENT WITH THIS INTERVENTION. INSTRUCTIONS WERE GIVEN, QUESTIONS WERE ANSWERED, AND THE PATIENT EXPRESSED UNDERSTANDING AND AGREES WITH THE PLAN. I, DEMETRIUS ALY, DOCUMENTED THE ABOVE INFORMATION ACTING A SCRIBE FOR DR. KAUR. I HAVE REVIEWED THE ABOVE DOCUMENT, WRITTEN BY DEMETRIUS ALY, PARCEL POST OFFICER, AND I VERIFY THAT IT IS ACCURATE PROCEDURE CODES [id number] INJECT TRIGGER POINTS 3/> DISPOSITION & COMMUNICATION FOLLOW UP FOLLOW UP WITH FLOOR CARE TECHNICIAN (REASON: POST TPI BILATERAL SHOULDER AND LOWER BACK) ELECTRONICALLY SIGNED BY CONNIE KAUR MD, MD ON 08/31/2020 AT 03:31 PM EST DISCLAIMER : THIS IS A VISIT SUMMARY EXTRACTED FROM THE [employer] CHART. IT IS NOT A COPY OF THE [employer] PROGRESS NOTE. YAMILETH
== END ==
LOC: M PAIN 09:15
PROVIDERS: ATTEND Anesthesiology
DX: M79.18 Myalgia, other site (principal); I10 Essential (primary) hypertension; J45.909 Unspecified asthma, uncomplicated; K21.9 Gastro-esophageal reflux disease without esophagitis; M79.7 Fibromyalgia; M35.3 Polymyalgia rheumatica; Z87.891 Personal history of nicotine dependence; Z79.899 Other long term (current) drug therapy; Z88.5 Allergy status to narcotic agent; Z88.8 Allergy status to other drugs, medicaments and biological substances
CPT/HCPCS: 20553; J3301

== ENCOUNTER → 2020-11-04 | Outpatient (CLI) | payer MEDICARE, MEDICAID ==
[~2020-11-04] MED LIST changes: -BUPIVACAINE HCL 0.25% 10ML VIAL As Ordered ONE; -BUPIVACAINE HCL 0.25% 30ML VIAL As Ordered ONE; -LISI-542 PO; +LISI-898 PO; +LISI10TA22 PO; -LISI10TA4 PO; -TRIAMCINOLONE ACETONIDE SUSP 40 MG/ML VIAL (J3301) As Ordered ONE; -diazePAM 5 MG TAB As Ordered ONE; -oxyCODONE 5MG TAB As Ordered ONE
--- NOTE | 2020-11-08 23:37 | ECWPNPC ---
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 POST [phone] HISTORY OF PRESENT ILLNESS GENERAL: - 50-YEAR-OLD FEMALE IN FOR POST TRIGGER POINT INJECTION FOLLOW-UP. SHE RATES HER PAIN PREPROCEDURE AT AN 8 OUT OF 10 AND POSTPROCEDURE AT A 0 OUT OF 10 TIMES ONE AND HALF MONTHS. SHE RATES HER PAIN CURRENTLY AT AN 8 OUT OF 10 AND DESCRIBES IT ACHING, BURNING, CONTINUOUS, AND THROBBING. PATIENT DOES ADMIT THAT SHE HAS MOVED TO [place] AND WOULD LIKE TO BE REFERRED TO [facility]IN MANA[facility]EMENT [facility]ENTER CLINIC VISIT HER. FALL RISK SCREENING: SCREENING :NO FALLS REPORTED IN THE LAST YEAR PAIN SCREENING: PATIENT HAS A COMPLAINT OF ACUTE OR CHRONIC PAIN :YES LOCATION OF PAIN:BOTH SHOULDERS, MID BACK, LOW BACK INTENSITY OF PAIN (SCALE OF 1 TO 10):8 WHAT DOES YOUR PAIN FEEL LIKE:ACHING, BURNING, CONTINOUS, THROBBING DURATION:CONSTANT, AWAKENS FROM SLEEP PAIN IS INCREASED BY:PROLONGED STANDING, OTHERS SITTING PAIN IS DECREASED BY:USE OF PAIN MEDICATIONS, OTHERS HEATING PAD, OXYCODONE, TENS UNIT, REPOSITIONING, BIOFREEZE TREATMENT/MEDICATIONS USED TO MANAGE PAIN:OPIOIDS, PHYSICAL THERAPY BIOFREEZE NURSING NOTE: -. PAIN CENTER INTAKE QUESTIONS: DO YOU HAVE A HISTORY OF MRSA? :NO DO YOU TAKE A BLOOD THINNERS? :NO DO YOU HAVE ANY BLEEDING DISORDERS? :NO ANY NEW NUMBNESS OR WEAKNESS IN YOUR LEGS OR ARMS? :NO ANY PACEMAKER,DEFIBRILLATOR, OR DORSAL COLUMN STIMULATOR? :NO DO YOU HAVE ANY RASHES OR OPEN SORES? :NO ARE YOU ALLERGIC TO IV DYE? :NO ARE YOU DIABETIC? :NO ANY NEW PROBLEMS WITH YOUR MEDICATIONS? :NO HAVE YOU RECEIVED A VACCINE IN THE PAST 30 DAYS? :NO DO YOU PLAN TO RECEIVE A VACCINE IN THE NEXT 21 DAYS? :NO DO YOU NEED ANY PRESCRIPTION? :NO DO YOU TAKE ANY IMMUNOSUPPRESSIVE MEDICATIONS? :NO IS THERE A CHANCE YOU COULD BE ? :NO ARE YOU BREAST FEEDING? :NO CURRENT MEDICATIONS TAKING ESTRADIOL 0.5 MG TABLET ORALLY DAILY TAKING NEXIUM 40 MG TABLET 1 TAB ORAL DAILY TAKING OXYCODONE-ACETAMINOPHEN 5-325 MG TABLET ORALLY MDD2 NEEDED FOR PAIN TAKING ALBUTEROL SULFATE (2.5 MG/3ML) 0.083% NEBULIZATION SOLUTION INHALATION TWICE A DAY NEEDED TAKING LOSARTAN POTASSIUM 25 MG TABLET 1 TABLET ORALLY ONCE A DAY TAKING QUETIAPINE FUMARATE 25 MG TABLET 1 TABLET AT BEDTIME ORALLY ONCE A DAY TAKING VENLAFAXINE HCL 75 MG TABLET 2 TABLET WITH FOOD ORALLY ONCE A DAY TAKING PRASCION 50MG TAB 1 TABLET ORALLY DAILY TAKING TOPIRAMATE 25 MG TABLET 1 CAP ORALLY BID TAKING SUMATRIPTAN SUCCINATE 50 MG TABLET 1 TABLET AT LEAST 2 HOURS BETWEEN DOSES NEEDED ORALLY TWICE A DAY, NOTES: PRN NOT-TAKING TURMERIC 500 MG CAPSULE ORALLY DAILY NOT-TAKING POTASSIUM 99 MG TABLET 1 TABLET ORALLY ONCE A DAY NOT-TAKING MAGNESIUM 250 MG TABLET 1 TABLET ORALLY DAILY NOT-TAKING PROPRANOLOL HCL 120 MG ORALLY DAILY NOT-TAKING PRAZOSIN HCL 5 MG CAPSULE 1 CAPSULE AT BEDTIME ORALLY ONCE A DAY, NOTES: 01-13-202099 NOT-TAKING GABAPENTIN 300 MG CAPSULE ORALLY BID NOT-TAKING CYCLOBENZAPRINE HCL 5 MG TABLET 1 TABLET ORALLY 1 TABS IN A.M. , 2-3 TABS IN P.M. NOT-TAKING TRAZODONE HCL 150 MG TABLET 1 TABLET IN AM, 2 IN PM ORALLY NOT-TAKING PREDNISONE 5 MG TABLET 1 TABLET ORALLY DAILY NOT-TAKING OLANZAPINE 5 MG TABLET 1 TABLET ORALLY ONCE A DAY NOT-TAKING FLUOXETINE HCL 20 MG CAPSULE 2 CAPSULE ORALLY BEFORE BEDTIME NOT-TAKING EXCEDRIN MIGRAINE 250-250-65 MG TABLET 2 TABLETS NEEDED ORALLY FOUR TIMES DAILY NEEDED NOT-TAKING STOOL SOFTENER 100 MG CAPSULE 3 CAPSULES NEEDED ORALLY ONCE A DAY NOT-TAKING AMBIEN 10 MG TABLET ORAL AT BEDTIME NOT-TAKING CALCIUM 600 IRON/D 1 TABLET ORAL DAILY NOT-TAKING IBUPROFEN 800 MG TABLET 1 TABLET ORALLY TWO TIMES DAILY NEEDED NOT-TAKING DICLOFENAC SODIUM 75 MG TABLET DELAYED RELEASE 1 TABLET WITH FOOD OR MILK ORALLY TWICE A DAY NOT-TAKING LIDODERM 5 % PATCH 1 PATCH TO SKIN REMOVE AFTER 12 HOURS EXTERNALLY ON 12 HRS OFF 12 HRS TO MID OR LOW BACK NOT-TAKING HYDROCHLOROTHIAZIDE 12.5 37.5 MG TABLET WIH TRIAMETERENE ORAL DAILY NOT-TAKING LISINOPRIL 10 10 MG TABLET ORAL DAILY NOT-TAKING LAMICTAL 100 MG TABLET 1/2 TAB ORALLY TWICE A DAY NOT-TAKING PROAIR HFA 108 (90 BASE) MCG/ACT AEROSOL SOLUTION 2 PUFFS NEEDED INHALATION QID PRN, NOTES: NOT LATELY NOT-TAKING DULOXETINE HCL 30 MG CAPSULE DELAYED RELEASE PARTICLES 60 MG IN AM, 30 MG IN PM ORALLY TWICE DAILY NOT-TAKING PRAMIPEXOLE DIHYDROCHLORIDE 0.125 MG TABLET 1-2 TABLET BEFORE BEDTIME ORALLY ONCE A DAY 3-4 HR BEFORE BEDTIME NOT-TAKING HYDROXYZINE HCL 25 MG TABLET ORALLY TWICE A DAY NEEDED MEDICATION LIST REVIEWED AND RECONCILED WITH THE PATIENT PAST MEDICAL HISTORY HYPERTENSION ASTHMA REFLUX DENGERATIVE DISC DISEASE FIBROMYALGIA RADICULOPATHY LUPUS LSE POLYMYALGIA RHEUMATICA RIGHT SHOULDER AND BACK PAIN ALLERGIES MORPHINE SULFATE: ANAPHYLAXIS - ALLERGY BACLOFEN: HIVES - ALLERGY SURGICAL HISTORY PARTIAL HYSTERECTOMY 2004 GALL BLADDER REMOVED 2014 LUMBAR LAMINECTOMY FUSION 12/23/18 FAMILY HISTORY FATHER: MOTHER: ALIVE, DIAGNOSED WITH HYPERTENSION 1 BROTHER(S) , 1 SISTER(S) - HEALTHY. 2 SON(S) , 1 DAUGHTER(S) - HEALTHY. SOCIAL HISTORY GENERAL: TOBACCO USE ARE YOU A:FORMER SMOKER FORMER SMOKER.QUIT X 1MONTH LATEX QUESTIONNAIRE LATEX ALLERGY : HAVE YOU EVER DEVELOPED ANY TYPE OF REACTION AFTER HANDLING LATEX PRODUCTS SUCH RUBBER GLOVES, CONDOMS, DIAPHRAGMS, BALLOONS, SOCKS, OR UNDERWEAR?NO LATEX ALLERGY : HAVE YOU EVER DEVELOPED ANY TYPE OF REACTION DURING OR AFTER DENTAL APPOINTMENT, VAGINAL/RECTAL EXAMINATION, SURGICAL PROCEDURE, OR ANY OTHER EXPOSURE?NO LATEX RISK : HAVE YOU EVER HAD ANY DIFFICULTY BREATHING OR HIVES AFTER EATING OR HANDLING ANY FRUITS, OR VEGETABLES; SUCH KIWI, BANANAS, STONE FRUITS, OR CHESTNUTSNO LATEX RISK : DO YOU HAVE A PREVIOUS PERSONAL HISTORY OF MORE THAN NINE SURGERIES, SPINA BIFIDA, OR REPEATED CATHERIZATIONS? NO LATEX RISK : ARE YOU FREQUENTLY EXPOSED TO LATEX PRODUCTS IN YOUR OCCUPATION?NO DATE ASKED : 11/04/2020 ALCOHOL SCREENING DID YOU HAVE A DRINK CONTAINING ALCOHOL IN THE PAST YEAR?YES HOW OFTEN DID YOU HAVE SIX OR MORE DRINKS ON ONE OCCASION IN THE PAST YEAR?NEVER (0 POINTS) HOW MANY DRINKS DID YOU HAVE ON A TYPICAL DAY WHEN YOU WERE DRINKING IN THE PAST YEAR?1 OR 2 (0 POINTS) HOW OFTEN DID YOU HAVE A DRINK CONTAINING ALCOHOL IN THE PAST YEAR?TWO TO FOUR TIMES A MONTH (2 POINTS) POINTS2 INTERPRETATIONNEGATIVE RECREATIONAL DRUG USE DRUG USE?NO CAFFEINE CAFFEINE USE?YES 1 CUP OF COFFEE DAILY,1 CUP OF TEA DAILY EPISCOPALIAN [id number] PENTECOSTALISM LANGUAGE LANGUAGES SPOKEN:PERUVIAN EDUCATION LEVEL OF EDUCATION:NOT FINISHED COLLEGE LEARNING BARRIERS / SPECIAL NEEDS CHANGE FROM LAST VISIT?NO BARRIERS TO LEARNING?NO HEARING IMPAIRED?NO VISION IMPAIRED?YES :CORRECTIVE LENSES COGNITIVELY IMPAIRED?NO READINESS TO LEARN?YES LEARNING PREFERENCES?NO LEARNING CAPABILITIES PRESENT?YES EMOTIONAL BARRIERS?NO SPECIAL DEVICES?YES :CANE MORTGAGE PROCESSING MANAGER NEEDED?NO DOMESTIC VIOLENCE HAS THE PATIENT EVER BEEN IN A SITUATION INVOLVING DOMESTIC VIOLENCE?YES DO YOU FEEL SAFE IN YOUR ENVIRONMENT?YES OCCUPATION: DISABLED. DIET: REGULAR. EXERCISE: WALKS. MARITAL STATUS: SINGLE. OTHERS AT HOME: NONE. PAIN CLINIC PFS, CLERGY, PUBLIC HEALTH REFERRALS PFS REFERRAL NEEDED?NO CLERGY REFERRAL NEEDED?NO PUBLIC HEALTH REFERRAL NEEDED?NO WAS THE PROVIDER NOTIFIED OF ANY PERTINENT INFO?YES HAS THE PATIENT BEEN EDUCATED REGARDING HIS/HER PLAN OF CARE?YES HAS THE PATIENT BEEN EDUCATED REGARDING PAIN, THE RISK FOR PAIN, THE IMPORTANCE OF EFFECTIVE PAIN MANAGEMENT, AND THE PAIN ASSESSMENT PROCESS?YES ADVANCE DIRECTIVE ADVANCE DIRECTIVE DISCUSSED WITH PATIENT:YES HCP - EVELYN LYLE [phone] HOSPITALIZATION/MAJOR DIAGNOSTIC PROCEDURE SURGERIES [facility] X10 DAYS REVIEW OF SYSTEMS CONSTITUTIONAL: ANY RECENT FEVER NO . CHILLS NO . WEIGHT CHANGE OF UNKNOWN REASONS NO . GASTROENTEROLOGY: NEW UNEXPLAINABLE CHANGES IN BOWEL CONTROL NO . CONSTIPATION NO . GENITOURINARY: ANY NEW CHANGE IN BLADDER CONTROL? NO . NEUROLOGY: NEW ONSET DIZZINESS OR NEUROLOGICAL CHANGES NOT MENTIONED NO . NEW NUMBNESS OR PAIN PATTERNS NOT MENTIONED AND PERTINENT TO TODAY'S VISIT NO . CARDIOLOGY: NEW CHEST PRESSURE NO . NEW CHEST PAIN NO . RESPIRATORY: UNEXPLAINABLE COUGH NO . NEW SHORTNESS OF BREATH NO . VITAL SIGNS WT 197.8 LBS, HT 67 IN, BMI 30.98 INDEX, BP 0 MM HG, HR 0 /MIN, RR 0 /MIN, TEMP 0 F, OXYGEN SAT % 0, REVIEWED BY: MANSOOR VITAL SIGNS OBTAINED; VIRTUAL VISIT. HARSHAL BOGGS MA. EXAMINATION GENERAL EXAMINATION: PSYCHAPPROPRIATE MOOD AND AFFECT , ORIENTED X 3. ASSESSMENTS MYALGIA, OTHER SITE - M79.18 (PRIMARY) TREATMENT MYALGIA, OTHER SITE NOTES: 50-YEAR-OLD FEMALE IN FOR POST TRIGGER POINT INJECTION FOLLOW-UP. INFORMED PATIENT THAT THIS GIS SCIENTIST WOULD SEND REFERRAL TO PAIN PROVIDER IN [place] IT IS CLOSER TO HER LOCATION. PATIENT HAS EXPRESSED UNDERSTANDING OF AND WAS IN AGREEMENT WITH TREATMENT PLAN. GIVEN TIME TO ASK QUESTIONS AND EXPRESS CONCERNS. , ISTOP REGISTRY REVIEWED AND DEMONSTRATES COMPLLIANCE. (REF # [id number] INSERTION STARTED ON ) BRINGS IN MEDICATIONS WHICH IS APPROPRIATE FOR WHAT WAS DISPENSED. RECENT URINE TOXICOLOGY REVIEWED. NO UNAUTHORIZED MEDICATIONS. NO ILLICIT SUBSTANCES AND PRESCRIBED MEDICATIONS WERE PRESENT. REFERRAL TO:[facility] REASON:PAIN MANAGMENT PROCEDURE CODES FA211 ESTABILISHED PATIENT [facility] CHARGE DISPOSITION & COMMUNICATION FOLLOW UP NO FOLLOW-UP NEEDED PATIENT WILL BE REFERRED TO ANOTHER PROVIDER. (REASON: MYALGIA) ELECTRONICALLY SIGNED BY OSMANY FOREMAN ON 11/08/2020 AT 09:16 AM EST DISCLAIMER : THIS IS A VISIT SUMMARY EXTRACTED FROM THE [employer] CHART. IT IS NOT A COPY OF THE [employer] PROGRESS NOTE. YAMILETH
== END ==
LOC: M PAIN 09:45
PROVIDERS: ATTEND Family Medicine
DX: M79.18 Myalgia, other site (principal); I10 Essential (primary) hypertension; J45.909 Unspecified asthma, uncomplicated; K21.9 Gastro-esophageal reflux disease without esophagitis; M79.7 Fibromyalgia; L93.0 Discoid lupus erythematosus; M35.3 Polymyalgia rheumatica; Z87.891 Personal history of nicotine dependence; Z79.891 Long term (current) use of opiate analgesic; Z79.899 Other long term (current) drug therapy; Z88.5 Allergy status to narcotic agent; Z88.8 Allergy status to other drugs, medicaments and biological substances